=== PATIENT | female | born 1980 | race American Indian/Alaskan Native ===

== ENCOUNTER 2019-06-27 12:11 | Observation (INO) | payer MEDICAID ==
--- NOTE | 2019-06-27 13:27 | Event Note ---
ED Screening Note Date of service: 06/27/19 Time: 13:24 ED Screening Note: 38 y o female presents with vomitting, malaise, chills and this morning facial swelling and chest pain s/p lip fat transplant from abd to buttocks in [place]. completed antibiotic course x 5 days denies coughing, This initial assessment/diagnostic orders/clinical plan/treatment(s) is/are subject to change based on patients health status, clinical progression and re- assessment by fellow clinical providers in the ED. Further treatment and workup at subsequent clinical providers discretion. Patient/guardian urged not to elope from the ED as their condition may be serious if not clinically assessed and managed. Initial orders include: labs
[2019-06-27] MEDS ORDERED: SODIUM CHLORIDE 0.9% 1000 ML 1,000 ML IV ONE (13:28)
[2019-06-27] MEDS ORDERED: ONDANSETRON 4 MG/2 ML INJ IV ONE (13:28)
[2019-06-27 14:34] LABS: Basophils % (Auto) 0.6 % (0.0-1.8); Eosinophils # (Auto) 0.3 K/mm3 (0.0-0.4); Eosinophils % (Auto) 3.7 % (0.0-4.3); Hemoglobin 6.2 gm/dl (10.1-14.3); Lymphocytes # (Auto) 2.6 K/mm3 (1.2-5.4); Lymphocytes % (Auto) 29.4 % (13.4-35.0); Mean Corpuscular HGB Conc 33 % (30-34); Mean Corpuscular Volume 90 fl (79-97); Monocytes # (Auto) 0.7 K/mm3 (0.0-0.8); Monocytes % (Auto) 8.3 % (0.0-7.3); Platelet Count 528 K/mm3 (140-440); Red Blood Count 2.12 M/mm3 (3.65-5.03); Red Cell Distribution Width 16.4 % (13.2-15.2)
[2019-06-27 14:48] LABS: Alanine Aminotransferase 16 units/L (7-56); Albumin 2.8 g/dL (3.9-5); BUN/Creatinine Ratio 15; Blood Urea Nitrogen 6 mg/dL (7-17); Calcium 8.3 mg/dL (8.4-10.2); Hemolysis Index 8
[2019-06-27 14:49] LABS: Bacteria,Urine 1+ /HPF (Negative); Bilirubin,Urine NEG (Negative); Blood,Urine NEG (Negative); Mucus,Urine 3+ /HPF
[2019-06-27 14:50] LABS: Color,Urine Yellow (Yellow)
[2019-06-27] MEDS ORDERED: SODIUM CHLORIDE 0.9% 500 ML 500 ML IV ONE ×2 (15:28→15:49)
--- NOTE | 2019-06-27 15:29 | Emergency Department Report ---
ED Chest Pain HPI - General Chief Complaint: Chest Pain Stated Complaint: NAUSEA, R ARM PAIN, CHEST TIGHTNESS Time Seen by Provider: 06/27/19 15:17 Source: patient Mode of arrival: Ambulatory Limitations: No Limitations - History of Present Illness Initial Comments: Patient is a 38-year-old female that presents emergency room with complaints of left-sided chest tightness and shortness of breath and nausea vomiting 2 days. Patient states that her symptoms are worsening. Patient states she's also having right hand numbness. Patient states any time she eats she is vomiting. Patient states her chest pain is a 8 out of 10. Patient states it's better with rest and worse with palpation and movement. Patient states he recently had a plastic surgery done. Patient states she had liposuction with fat transfer to her blood tox. Patient states her surgery was 9 days ago. She states she had a surgery in [facility]. Patient states that her blood count was normal preoperatively. MD Complaint: chest pain -: Sudden Onset: during rest Pain Location: left chest Pain Radiation: none Severity: severe Severity scale (0 -10): 8 Quality: sharp Consistency: constant Improves With: rest Worsens With: palpation, movement re: nausea, vomting, dyspnea. denies: diaphoresis, sense of impending doom Other Symptoms: denies: cough, fever, syncope, rash, acid taste in mouth, leg swelling, palpitations, burping Treatments Prior to Arrival: none Aspirin use within the Past 7 Days: (0) No - Related Data On Oral Contraceptives: No Previous Rx's Medication Instructions Recorded Last Taken Type Acetaminophen/Codeine 1 tab PO Q6H PRN #15 tab 08/17/14 Unknown Rx [Acetaminophen-Codeine #3 TAB] RX: Diclofenac Dr [Voltaren Dr] 75 mg PO TID #21 tablet 08/17/14 Unknown Rx methOCARBAMOL [Robaxin] 500 mg PO Q6H PRN #20 tablet 08/17/14 Unknown Rx Cyclobenzaprine [Flexeril] 10 mg PO TID PRN #20 tablet 05/05/16 Unknown Rx HYDROcodone/APAP 5-325 [[place] 1 each PO Q6HR PRN #30 tablet 05/05/16 Unknown Rx 5/325] Promethazine [Phenergan TAB] 25 mg PO Q6HR PRN #20 tab 05/05/16 Unknown Rx Allergies Allergy/AdvReac Type Severity Reaction Status Date / Time codeine Allergy Itching Verified 06/27/19 12:13 Penicillins Allergy Itching Verified 06/27/19 12:13 Heart Score - HEART Score History: Slightly suspicious EKG: Normal Age: < 45 Risk factors: No known risk factors Troponin: < normal limit HEART Score: 0 ED Review of Systems ROS: Stated complaint: NAUSEA, R ARM PAIN, CHEST TIGHTNESS Other details as noted in HPI Constitutional: denies: chills, fever Eyes: denies: eye pain, eye discharge, vision change ENT: denies: ear pain, throat pain Respiratory: shortness of breath, SOB with exertion, SOB at rest. denies: co ugh, wheezing Cardiovascular: chest pain, dyspnea on exertion. denies: palpitations Endocrine: no symptoms reported Gastrointestinal: denies: abdominal pain, nausea, diarrhea Genitourinary: denies: urgency, dysuria, discharge Musculoskeletal: denies: back pain, joint swelling, arthralgia Skin: denies: rash, lesions Neurological: numbness. denies: headache, weakness Psychiatric: denies: anxiety, depression Hematological/Lymphatic: denies: easy bleeding, easy bruising ED Past Medical Hx - Past Medical History Previous Medical History?: Yes Hx GERD: Yes - Surgical History Past Surgical History?: Yes Additional Surgical History: C- section x 4; foot surgery 2000. GASTRIC SLEEVE. LIPO AND FAT TRANSFER - Family History Family history: no significant - Social History Smoking Status: Never Smoker Substance Use Type: None - Medications Home Medications: Home Medications Medication Instructions Recorded Confirmed Last Taken Type Acetaminophen/Codeine 1 tab PO Q6H PRN #15 tab 08/17/14 Unknown Rx [Acetaminophen-Codeine #3 TAB] RX: Diclofenac Dr [Voltaren Dr] 75 mg PO TID #21 tablet 08/17/14 Unknown Rx methOCARBAMOL [Robaxin] 500 mg PO Q6H PRN #20 tablet 08/17/14 Unknown Rx Cyclobenzaprine [Flexeril] 10 mg PO TID PRN #20 tablet 05/05/16 Unknown Rx HYDROcodone/APAP 5-325 [[place] 1 each PO Q6HR PRN #30 tablet 05/05/16 Unknown Rx 5/325] Promethazine [Phenergan TAB] 25 mg PO Q6HR PRN #20 tab 05/05/16 Unknown Rx ED Physical Exam - General Limitations: No Limitations General appearance: alert, in no apparent distress - Head Head exam: Present: atraumatic, normocephalic - Eye Eye exam: Present: normal appearance - ENT ENT exam: Present: mucous membranes moist - Neck Neck exam: Present: normal inspection - Respiratory Respiratory exam: Present: normal lung sounds bilaterally, chest wall tenderness. Absent: respiratory distress, wheezes, rales - Cardiovascular Cardiovascular Exam: Present: regular rate, normal rhythm. Absent: systolic murmur, diastolic murmur, rubs, gallop - GI/Abdominal GI/Abdominal exam: Present: soft, normal bowel sounds - Extremities Exam Extremities exam: Present: normal inspection - Back Exam Back exam: Present: normal inspection - Neurological Exam Neurological exam: Present: alert, oriented X3 - Psychiatric Psychiatric exam: Present: normal affect, normal mood - Skin Skin exam: Present: warm, dry, intact, normal color. Absent: rash ED Course Vital Signs 06/27/19 13:24 Temperature 98.1 F Pulse Rate 94 H Respiratory 16 Rate Blood Pressure 117/57 O2 Sat by Pulse 100 Oximetry - Reevaluation(s) Reevaluation #1: I discussed all results with patient. Discussed plan of care outpatient. Patient agrees plan of care and admission. Patient will be admitted to the hospital service. 06/27/19 15:56 - Consultations Consultation #1: Hospitalist consultation. Hospitalist to admit patient. Hospitalist to place orders. 06/27/19 15:56 FERNANDO score - Fernando Score Age > 65: (0) No Aspirin use within the Past 7 Days: (0) No 3 or more CAD Risk Factors: (0) No 2 or more Angina events in past 24 hrs: (1) Yes Known CAD with more than 50% Stenosis: (0) No Elevated Cardiac Markers: (0) No ST Deviation Greater than 0.5mm: (0) No FERNANDO Score: 1 ED Medical Decision Making - Lab Data Result diagrams: 06/27/19 14:06 06/27/19 14:06 - EKG Data -: EKG Interpreted by Me EKG shows normal: sinus rhythm, axis, intervals, QRS complexes, ST-T waves Rate: normal - Radiology Data Radiology results: report reviewed CHEST 1 VIEW 06/27/2019 5:05 PM INDICATION / CLINICAL INFORMATION: Chest pain. COMPARISON: None available. FINDINGS: SUPPORT DEVICES: None. HEART / MEDIASTINUM: No significant abnormality. LUNGS / PLEURA: No significant pulmonary or pleural abnormality. No pneumothorax. ADDITIONAL FINDINGS: No significant additional findings. IMPRESSION: 1. No acute findings. - Medical Decision Making Patient is a 38-year-old female that presents emergency room with complaints of chest pain, shortness of breath, right hand numbness. Patient found to be severely anemic. Patient is status post cosmetic surgery. Patient's chest x- ray negative. Patient's EKG negative. Patient's labs unremarkable except for severe anemia. Patient typed and crossed for 1 unit. Patient admitted to the hospitalist service. - Differential Diagnosis anemia. Recent surgery. Chest pain. Shortness of breath. Critical Care Time: Yes Critical care time in (mins) excluding proc time.: 35 Critical care attestation.: If time is entered above; I have spent that time in minutes in the direct care of this critically ill patient, excluding procedure time. Critical Care Time: 35 minutes ED Disposition Clinical Impression: SOB (shortness of breath) Anemia Qualifiers: Anemia type: unspecified type Qualified Code(s): D64.9 - Anemia, unspecified Chest pain Qualifiers: Chest pain type: unspecified Qualified Code(s): R07.9 - Chest pain, unspecified Disposition: DC-09 OP ADMIT IP TO THIS HOSP Is pt being admited?: Yes Does the pt Need Aspirin: No Condition: Critical Time of Disposition: 16:27
--- NOTE | 2019-06-27 15:49 | History and Physical Report ---
History of Present Illness Chief complaint: IM hurting, and i feel weak History of present illness: 38 YO Female with Obesity, GERD presents to ED for evaluation. Pt states that she has experienced weakness, shortness of breath, and chest discomfort over the past 2 days with worsening symptoms over the same time frame. Pt also reports nausea, and multiple episodes of vomiting over the past 2 2ays with inability to tolerate oral intake. Pt is 9 days S/P Liposuction from her flank, abdomen, and back with fat transposition to her buttocks. Pt transported to [facility] via private vehicle. Pt seen and evaluated in ED and found to have Symptomatic Anemia. Pt placed in Observation status, and admitted to medical floor. Pt denies fever, chills, CP, palpitations, NVD, Trauma, BRBPR, Productive cough, skin rash, prolonged travel, Individual/Family history of DVT/PE/Bleeding/Blood Clotting Disorders. No prior admission for review. All listed medication reconciled at time of admission. Past History Past Medical History: other (See HPI) Past Surgical History: , Other (Foot surgery, GAstric Sleeve, Liposuction.) Social history: single. denies: smoking, alcohol abuse, prescription drug abuse Family history: hypertension Medications and Allergies Allergies Allergy/AdvReac Type Severity Reaction Status Date / Time codeine Allergy Itching Verified 06/27/19 12:13 Penicillins Allergy Itching Verified 06/27/19 12:13 Home Medications Medication Instructions Recorded Confirmed Last Taken Type Acetaminophen/Codeine 1 tab PO Q6H PRN #15 tab 08/17/14 Unknown Rx [Acetaminophen-Codeine #3 TAB] Diclofenac Dr [Agustina Mims] 75 mg PO TID #21 tablet 08/17/14 Unknown Rx methOCARBAMOL [Robaxin] 500 mg PO Q6H PRN #20 tablet 08/17/14 Unknown Rx Cyclobenzaprine [Flexeril] 10 mg PO TID PRN #20 tablet 05/05/16 Unknown Rx HYDROcodone/APAP 5-325 [[place] 1 each PO Q6HR PRN #30 tablet 05/05/16 Unknown Rx 5/325] Promethazine [Phenergan TAB] 25 mg PO Q6HR PRN #20 tab 05/05/16 Unknown Rx Review of Systems Constitutional: no weight loss, no fever, no chills Ears, nose, mouth and throat: no ear pain, no tinnitis, no decreased hearing, no nose pain, no nasal discharge, no sinus pressure Breasts: no change in shape, no swelling, no mass Cardiovascular: no chest pain, no orthopnea, no palpitations, no rapid/irregular heart beat, no edema, no syncope Respiratory: no cough, no excessive sputum, no hemoptysis, no shortness of breath Gastrointestinal: no nausea, no vomiting, no diarrhea, no hematemesis Genitourinary Female: no pelvic pain, no menorrhagia, no urinary frequency, no urgency, no stress incontinence, no post void dribbling, no urge incontinence Menstruation: no premenarcheal, no post hysterectomy, no ammenorrhea, no ammenorrhea on BC, no period heavy, no period spotting Rectal: no pain, no incontinence, no bleeding Musculoskeletal: no neck stiffness, no neck pain, no arm numbness/tingling, no low back pain, no shooting leg pain Integumentary: no rash, no pruritis, no redness, no wounds, no blisters Neurological: no transient paralysis, no weakness, no parathesias, no numbness, no seizures, no syncope Psychiatric: no memory loss, no change in sleep habits, no sleep disturbances, no change in appetite, no change in libido Endocrine: no nocturia, no excessive sweating Hematologic/Lymphatic: no easy bruising, no easy bleeding, no lymphadenopathy Allergic/Immunologic: no allergic rhinitis, no wheezing, no persistent infections, no angioedema Exam - Constitutional Vitals: Temp Pulse Resp BP Pulse Ox 98.1 F 94 H 16 117/57 100 06/27/19 13:24 06/27/19 13:24 06/27/19 13:24 06/27/19 13:24 06/27/19 13:24 General appearance: Present: obese - EENT Eyes: Present: PERRL ENT: hearing intact, clear oral mucosa - Neck Neck: Present: supple, normal ROM - Respiratory Respiratory effort: normal Respiratory: bilateral: CTA - Cardiovascular Heart Sounds: Present: S1 & S2. Absent: rub, click - Extremities Extremities: pulses symmetrical, No edema Peripheral Pulses: within normal limits - Abdominal General gastrointestinal: Present: soft, non-tender, non-distended, normal bowel sounds Female genitourinary: Present: normal - Integumentary Integumentary: Present: clear, warm, dry - Musculoskeletal Musculoskeletal: gait normal, strength equal bilaterally - Psychiatric Psychiatric: appropriate mood/affect, intact judgment & insight - Neurologic Neurologic: CNII-XII intact, moves all extremities Results - Labs CBC & Chem 7: 06/27/19 14:06 06/27/19 14:06 Labs: Abnormal lab results 06/27/19 06/27/19 Range/Units 14:06 14:06 RBC 2.12 L (3.65-5.03) M/mm3 Hgb 6.2 L (10.1-14.3) gm/dl Hct 19.0 L* (30.3-42.9) % RDW 16.4 H (13.2-15.2) % Plt Count 528 H (140-440) K/mm3 [place] % (Auto) 8.3 H (0.0-7.3) % BUN 6 L (7-17) mg/dL Creatinine 0.4 L (0.7-1.2) mg/dL Calcium 8.3 L (8.4-10.2) mg/dL Total Protein 6.0 L (6.3-8.2) g/dL Albumin 2.8 L (3.9-5) g/dL Assessment and Plan - Patient Problems (1) Anemia Current Visit: Yes Status: Acute Plan to address problem: PRBC transfusion, repeat cbc, Benadryl, Tylenol prn, outpatient f/u with PCP (2) Dyspnea Current Visit: Yes Status: Acute Qualifiers: Dyspnea type: unspecified Qualified Code(s): R06.00 - Dyspnea, unspecified Plan to address problem: CTA chest, incentive spirometry, supportive care. (3) Obesity (BMI 35.0-39.9 without comorbidity) Current Visit: Yes Status: Acute Plan to address problem: Balanced diet, increased physical activity at discharge. (4) GERD (gastroesophageal reflux disease) Current Visit: Yes Status: Acute Qualifiers: Esophagitis presence: without esophagitis Qualified Code(s): K21.9 - Ga stro-esophageal reflux disease without esophagitis Plan to address problem: PPI therapy, supportive care. (5) DVT prophylaxis Current Visit: Yes Status: Acute Plan to address problem: SCD to BLE while in bed, Pt is ambulatory
[2019-06-27] MEDS ORDERED: ONDANSETRON 4 MG/2 ML INJ IV PRN (15:50)
[2019-06-27] MEDS ORDERED: ACETAMINOPHEN 325 MG TAB PO PRN (15:50)
[2019-06-27] MEDS ORDERED: ALBUTEROL 2.5 MG/3 ML NEBU IH PRN (15:50)
[2019-06-27] MEDS ORDERED: diphenhydrAMINE 50 MG/ML VIAL IV ONE ×2 (16:09→18:54)
[2019-06-27] MEDS ORDERED: HYDROmorphone 1 MG/1 ML INJ IV ONE (16:15)
--- NOTE | 2019-06-27 17:21 | Cat Scan Report ---
CTA of the chest with 3D Reconstruction Indication: ,Chest pain Technique: TECHNIQUE: Axial CT images were obtained through the chest after injection of 100 cc of Omnipaque 350 IV contrast. 3 plane MIP reconstructions were produced. All CT scans at this location are performed using CT dose reduction for ALARA by means of automated exposure control. COMPARISON: None Automatic exposure control was utilized in an attempt to reduce radiation dose. Findings: Pulmonary arteries: The main pulmonary artery and right and left pulmonary artery branches fill satis factorily with contrast. No pulmonary embolus is seen. Lungs: There are several very tiny nodules noted in the right lung measuring 2 to 3 mm in diameter. N o focal infiltrate is seen. There is no pneumothorax. Mediastinum: Heart size is normal. No adenopathy is seen. Aorta: Normal in diameter. No dissection seen within limits of this exam. There is significant edema in the body wall the abdomen. 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 Impression: No pulmonary embolus is seen. There is severe edema in the wall of the abdomen. There is a small amount of subcutaneous air in the right lateral abdominal wall of uncertain etiology. There are a few 2 to 3 mm pulmonary nodules on the right. INCIDENTAL PULMONARY NODULE RECOMMENDATION Recommendation: Solid Nodule size <6 mm -- Single or Multiple - Low Risk Patient: No routine follow-up - High Risk Patient: Optional CT at 12 months Note These recommendations do not apply to lung cancer screening, patients with immunosuppression, o r patients with known primary cancer. Note Newly detected indeterminate nodule in persons 35 years of age or older. Persons under the age of 35 should not receive follow-up unless there is a known primary cancer. Low Risk Patient -- minimal or absent history of smoking and of other known risk factors. High Risk Patient -- history of smoking or of other known risk factors. Nodule dimensions are average of long and short axes, rounded to the nearest millimeter. Based on 2017 Fleischner Society Guidelines found in Radiology 2017 284:228-243. [email or web address] Signer Name: Jaime Chirinos MD Signed: 06/27/2019 5:17 PM Workstation Name: [id number]
--- NOTE | 2019-06-27 17:34 | XRay Report ---
CHEST 1 VIEW 06/27/2019 5:05 PM INDICATION / CLINICAL INFORMATION: Chest pain. COMPARISON: None available. FINDINGS: SUPPORT DEVICES: None. HEART / MEDIASTINUM: No significant abnormality. LUNGS / PLEURA: No significant pulmonary or pleural abnormality. No pneumothorax. ADDITIONAL FINDINGS: No significant additional findings. IMPRESSION: 1. No acute findings. Signer Name: Roberto Dow MD Signed: 06/27/2019 5:29 PM Workstation Name: [id number]
[2019-06-27] MEDS ORDERED: diphenhydrAMINE 50 MG/ML VIAL ONE (18:58)
[2019-06-27] MEDS ORDERED: oxyCODONE /ACETAMINOPHEN 5-325MG TAB PO ONE (20:03)
[2019-06-27] MEDS ORDERED: PROMETHAZINE 25 MG TAB PO STA (20:04)
[2019-06-27] MEDS ORDERED: oxyCODONE /ACETAMINOPHEN 5-325MG TAB ONE (20:49)
[2019-06-27] MEDS ORDERED: PROMETHAZINE 25 MG TAB ONE (20:54)
[2019-06-27] MEDS: FAMOTIDINE 20 MG TAB PO SCH (22:37)
[2019-06-27] MEDS: PROMETHAZINE 25 MG TAB PO PRN (23:48)
[2019-06-27] MEDS: MORPHINE 2 MG/1 ML INJ IV PRN (23:48)
[2019-06-28] MEDS: SODIUM CHLORIDE 0.9% 1000 ML 1,000 ML IV SCH ×2 (00:30→21:27)
[2019-06-28] MEDS: METOCLOPRAMIDE 10 MG/2 ML INJ IV PRN ×3 (01:45→21:27)
[2019-06-28] MEDS: MORPHINE 2 MG/1 ML INJ IV PRN (06:06)
[2019-06-28] MEDS: PROMETHAZINE 25 MG TAB PO PRN ×2 (06:14→13:50)
[2019-06-28] MEDS: FAMOTIDINE 20 MG TAB PO SCH ×2 (09:25→21:23)
[2019-06-28 09:27] LABS: Basophils # (Auto) 0.1 K/mm3 (0.0-0.1); Basophils % (Auto) 0.7 % (0.0-1.8); Eosinophils # (Auto) 0.5 K/mm3 (0.0-0.4); Eosinophils % (Auto) 6.1 % (0.0-4.3); Hematocrit 23.8 % (30.3-42.9); Lymphocytes # (Auto) 2.7 K/mm3 (1.2-5.4); Lymphocytes % (Auto) 33.3 % (13.4-35.0); Mean Corpuscular HGB Conc 33 % (30-34); Mean Corpuscular Volume 88 fl (79-97); Monocytes # (Auto) 0.8 K/mm3 (0.0-0.8); Monocytes % (Auto) 9.7 % (0.0-7.3); Platelet Count 454 K/mm3 (140-440); Red Blood Count 2.69 M/mm3 (3.65-5.03); Red Cell Distribution Width 15.7 % (13.2-15.2)
[2019-06-28] MEDS: HYDROmorphone 1 MG/1 ML INJ IV PRN ×3 (10:01→18:54)
--- NOTE | 2019-06-28 11:35 | History and Physical Report ---
History of Present Illness Date of examination: 06/28/19 Date of admission: 06/27/19 15:50 Chief complaint: Vomiting and chills History of present illness: 38 y/o female c/o vomiting, malaise, chills and facial swelling since last PM. Pt also reports headache and nausea, c/ several episodes of emesis this morning. She sts, unable to tolerate oral pain med. Pain pain in relieved by iv dilaudid or hydrocdone 10 that she currentl;y takes. Pt is 9 days post op fat transplant from abd, flank and back to buttocks. She reports completing antibiotic course x 5 days. Past History Past Surgical History: , Other (Foot surgery, GAstric Sleeve, Liposuction.) Social history: single. denies: smoking, alcohol abuse, prescription drug abuse Family history: hypertension Medications and Allergies Allergies Allergy/AdvReac Type Severity Reaction Status Date / Time codeine Allergy Itching Verified 06/27/19 12:13 Penicillins Allergy Itching Verified 06/27/19 12:13 Home Medications Medication Instructions Recorded Confirmed Last Taken Type Acetaminophen/Codeine 1 tab PO Q6H PRN #15 tab 08/17/14 Unknown Rx [Acetaminophen-Codeine #3 TAB] Diclofenac Dr [Voltaren Dr] 75 mg PO TID #21 tablet 08/17/14 Unknown Rx methOCARBAMOL [Robaxin] 500 mg PO Q6H PRN #20 tablet 08/17/14 Unknown Rx Cyclobenzaprine [Flexeril] 10 mg PO TID PRN #20 tablet 05/05/16 Unknown Rx HYDROcodone/APAP 5-325 [[place] 1 each PO Q6HR PRN #30 tablet 05/05/16 Unknown Rx 5/325] Promethazine [Phenergan TAB] 25 mg PO Q6HR PRN #20 tab 05/05/16 Unknown Rx Active Meds: Active Medications Acetaminophen (Tylenol) 650 mg PO Q4H PRN PRN Reason: Pain MILD(1-3)/Fever >100.5/NATARAJAN Albuterol (Proventil) 2.5 mg IH Q4HRT PRN PRN Reason: Shortness Of Breath Famotidine (Pepcid) 20 mg PO BID MARQUITA Last Admin: 06/28/19 09:25 Dose: 20 mg Documented by: Hydromorphone HCl (Dilaudid) 1 mg IV Q4H PRN PRN Reason: Pain , Severe (7-10) Last Admin: 06/28/19 10:01 Dose: 1 mg Documented by: Sodium Chloride (Nacl 0.9% 1000 Ml) 1,000 mls @ 42 mls/hr IV DIRECT [facility] Last Admin: 06/28/19 00:30 Dose: 42 mls/hr Documented by: Metoclopramide HCl (Reglan) 10 mg IV Q6H PRN PRN Reason: Nausea And Vomiting Last Admin: 06/28/19 08:10 Dose: 10 mg Documented by: Ondansetron HCl (Zofran) 4 mg IV Q8H PRN PRN Reason: Nausea And Vomiting Last Admin: 06/27/19 22:37 Dose: 4 mg Documented by: Pneumococcal Polyvalent Vaccine (Pneumovax 23) 0.5 ml IM .ONCE ONE Stop: 06/28/19 12:01 Promethazine HCl (Phenergan) 25 mg PO Q6H PRN PRN Reason: Nausea And Vomiting Last Admin: 06/28/19 06:14 Dose: 25 mg Documented by: Sodium Chloride (Sodium Chloride Flush Syringe 10 Ml) 10 ml IV BID [facility] Last Admin: 06/28/19 09:25 Dose: 10 ml Documented by: Sodium Chloride (Sodium Chloride Flush Syringe 10 Ml) 10 ml IV PRN PRN PRN Reason: LINE FLUSH Review of Systems Ears, nose, mouth and throat: headache, no nasal discharge, no sinus pressure, no bleeding gums, no dental pain, no mouth pain Breasts: no skin changes, no Cardiovascular: chest pain, high blood pressure, no palpitations, no edema Respiratory: shortness of breath, no cough Gastrointestinal: nausea, vomiting, no diarrhea, no constipation, no excessive gas, no jaundice, no lactose intolerance Genitourinary Female: mood problems, no pelvic pain, no post void dribbling, no incomplete emptying, no difficulty voiding Menstruation: no currently menstrual, no ammenorrhea Rectal: no pain, no incontinence Musculoskeletal: arm numbness/tingling, no morning stiffness, no muscle cramps, no frequent falls, no fractures, no prior amputations Integumentary: no rash, no sores, no jaundice Neurological: weakness, numbness (hands), no head injury, no paralysis, no s eizures, no syncope, no convulsions, no change in speech, no change in mentation, no confusion Psychiatric: no change in libido, no suicidal ideation, no hallucinations, no pa ranoia, no difficulties concentrating Endocrine: no cold intolerance, no heat intolerance, no deepening of the voice, no thyroid mass, no low blood sugars Hematologic/Lymphatic: no easy bruising, no thrombophilia Allergic/Immunologic: no persistent infections, no gluten intolerance, no seasonal allergies Exam - Constitutional Vitals: Temp Pulse Resp BP Pulse Ox 98.2 F 100 H 17 109/65 98 06/28/19 07:17 06/28/19 07:17 06/28/19 07:17 06/28/19 07:17 06/28/19 07:17 General appearance: Present: mild distress - EENT Eyes: Present: PERRL ENT: hearing intact - Neck Neck: Present: normal ROM - Respiratory Respiratory effort: normal Respiratory: bilateral: CTA - Cardiovascular Rhythm: regular Heart Sounds: Present: S1 & S2 - Extremities Extremities: pulses intact, normal color - Abdominal General gastrointestinal: Present: tender Localized gastrointestinal: tender: diffuse - Integumentary Integumentary: Present: warm, dry - Musculoskeletal Musculoskeletal: strength equal bilaterally - Psychiatric Psychiatric: appropriate mood/affect, intact judgment & insight, memory intact - Neurologic Neurologic: CNII-XII intact Results - Labs CBC & Chem 7: 06/28/19 08:38 06/27/19 14:06 Labs: Laboratory Last Values WBC 8.0 K/mm3 (4.5-11.0) 06/28/19 08:38 RBC 2.69 M/mm3 (3.65-5.03) L 06/28/19 08:38 Hgb 8.0 gm/dl (10.1-14.3) L 06/28/19 08:38 Hct 23.8 % (30.3-42.9) L 06/28/19 08:38 MCV 88 fl (79-97) 06/28/19 08:38 MCH 30 pg (28-32) 06/28/19 08:38 MCHC 33 % (30-34) 06/28/19 08:38 RDW 15.7 % (13.2-15.2) H 06/28/19 08:38 Plt Count 454 K/mm3 (140-440) H 06/28/19 08:38 Lymph % (Auto) 33.3 % (13.4-35.0) 06/28/19 08:38 [place] % (Auto) 9.7 % (0.0-7.3) H 06/28/19 08:38 Eos % (Auto) 6.1 % (0.0-4.3) H 06/28/19 08:38 Baso % (Auto) 0.7 % (0.0-1.8) 06/28/19 08:38 Lymph # 2.7 K/mm3 (1.2-5.4) 06/28/19 08:38 [place] # 0.8 K/mm3 (0.0-0.8) 06/28/19 08:38 Eos # 0.5 K/mm3 (0.0-0.4) H 06/28/19 08:38 Baso # 0.1 K/mm3 (0.0-0.1) 06/28/19 08:38 Seg Neutrophils % 50.2 % (40.0-70.0) 06/28/19 08:38 Seg Neutrophils # 4.0 K/mm3 (1.8-7.7) 06/28/19 08:38 Sodium 139 mmol/L (137-145) 06/27/19 14:06 Potassium 4.3 mmol/L (3.6-5.0) 06/27/19 14:06 Chloride 102.5 mmol/L (98-107) 06/27/19 14:06 Carbon Dioxide 24 mmol/L (22-30) 06/27/19 14:06 Anion Gap 17 mmol/L 06/27/19 14:06 BUN 6 mg/dL (7-17) L 06/27/19 14:06 Creatinine 0.4 mg/dL (0.7-1.2) L 06/27/19 14:06 Estimated GFR > 60 ml/min 06/27/19 14:06 BUN/Creatinine Ratio 15 % 06/27/19 14:06 Glucose 84 mg/dL (65-100) 06/27/19 14:06 Calcium 8.3 mg/dL (8.4-10.2) L 06/27/19 14:06 Total Bilirubin 0.50 mg/dL (0.1-1.2) 06/27/19 14:06 AST 17 units/L (5-40) 06/27/19 14:06 ALT 16 units/L (7-56) 06/27/19 14:06 Alkaline Phosphatase 87 units/L (35-129) 06/27/19 14:06 Total Protein 6.0 g/dL (6.3-8.2) L 06/27/19 14:06 Albumin 2.8 g/dL (3.9-5) L 06/27/19 14:06 Albumin/Globulin Ratio 0.9 % 06/27/19 14:06 HCG, Qual Negative (Negative) 06/27/19 15:39 Urine Color Yellow (Yellow) 06/27/19 14:09 Urine Turbidity Slightly-cloudy (Clear) 06/27/19 14:09 Urine pH 5.0 (5.0-7.0) 06/27/19 14:09 Ur Specific [place] 1.028 (1.003-1.030) 06/27/19 14:09 Urine Protein 30 mg/dl mg/dL (Negative) 06/27/19 14:09 Urine Glucose (UA) Neg mg/dL (Negative) 06/27/19 14:09 Urine Ketones Tr mg/dL (Negative) 06/27/19 14:09 Urine Blood Neg (Negative) 06/27/19 14:09 Urine Nitrite Neg (Negative) 06/27/19 14:09 Urine Bilirubin Neg (Negative) 06/27/19 14:09 Urine Urobilinogen 2.0 mg/dL (<2.0) 06/27/19 14:09 Ur Leukocyte Esterase Neg (Negative) 06/27/19 14:09 Urine WBC (Auto) 3.0 /HPF (0.0-6.0) 06/27/19 14:09 Urine RBC (Auto) 3.0 /HPF (0.0-6.0) 06/27/19 14:09 U Epithel Cells (Auto) 5.0 /HPF (0-13.0) 06/27/19 14:09 Urine Bacteria (Auto) 1+ /HPF (Negative) 06/27/19 14:09 Urine Mucus 3+ /HPF 06/27/19 14:09 Blood Type B POSITIVE 06/27/19 15:41 Antibody Screen Negative 06/27/19 15:41 Crossmatch See Detail 06/27/19 15:41 Assessment and Plan Assessment and plan: Pt is a 38 y/o Female with Obesity, GERD with c/o weakness, shortness of breath, n/v and chest discomfort over the past 2 days. . Pt is 9 days S/P Liposuction and fat transfer. Chest Xray IMPRESSION: 1. No acute findings. CT Chest Impression: No pulmonary embolus is seen. There is severe edema in the wall of the abdomen. There is a small amount of subcutaneous air in the right lateral abdominal wall of uncertain etiology. There are a few 2 to 3 mm pulmonary nodules on the right. INCIDENTAL PULMONARY NODULE RECOMMENDATION Anemia s/p surgery 9 days ago -repeat cbc post transfusion, monitor labs DVT prophylaxis -SCD, Intractable Nausea/ Vomiting - Obesity -Lifestyle modification c/ diet changes.
[2019-06-28] MEDS ORDERED: FLU VACC QUAD 2019-20 (3 YR UP)/PF 60 MCG/0.5 ML SYRINGE IM ONE (12:00)
[2019-06-28] MEDS ORDERED: PNEUMOCOCCAL 23 Valent 0.5 ML VIAL IM ONE (12:00)
--- NOTE | 2019-06-28 13:32 | Progress Note ---
<LENKA CLAUDIO R - Last Filed: 06/28/19 14:43> Assessment and Plan I saw and evaluated the patient. I agree with the findings and the plan of care as documented in the Nurse Practitioner's~note, with the following corrections and additions. Dispositon: continue inpatient care, she is actively vomiting, once tolerating a diet then d/c. Order CT abd/pelvis, she had cosmetic liposuction and fat transfer from stomach to buttock in [place] approx 1 week ago. Her symptoms most likely surgical complication. Objective - Constitutional Vitals: Vital Signs - 12hr 06/28/19 06/28/19 06/28/19 02:55 03:25 04:25 Temperature 98.2 F 98.3 F 98.4 F Pulse Rate 111 H 105 H 103 H Respiratory 16 17 17 Rate Blood Pressure 108/61 106/64 119/70 O2 Sat by Pulse 8 L 98 Oximetry 06/28/19 06/28/19 06/28/19 05:37 05:52 06:06 Temperature 97.5 F L 97.6 F Pulse Rate 101 H 107 H Respiratory 16 17 17 Rate Blood Pressure 112/70 116/70 O2 Sat by Pulse 98 100 Oximetry 06/28/19 06/28/19 06/28/19 06:17 06:36 06:52 Temperature 97.8 F 98 F Pulse Rate 102 H 105 H Respiratory 17 17 16 Rate Blood Pressure 115/70 110/68 O2 Sat by Pulse 97 98 Oximetry 06/28/19 06/28/19 07:17 11:51 Temperature 98.2 F 98.2 F Pulse Rate 100 H 102 H Respiratory 17 19 Rate Blood Pressure 109/65 113/72 O2 Sat by Pulse 98 100 Oximetry - Labs CBC & Chem 7: 06/28/19 08:38 06/27/19 14:06 Labs: Abnormal lab results 06/27/19 06/27/19 06/27/19 Range/Units 14:06 14:06 15:41 RBC 2.12 L (3.65-5.03) M/mm3 Hgb 6.2 L (10.1-14.3) gm/dl Hct 19.0 L* (30.3-42.9) % RDW 16.4 H (13.2-15.2) % Plt Count 528 H (140-440) K/mm3 [place] % (Auto) 8.3 H (0.0-7.3) % Eos % (Auto) (0.0-4.3) % Eos # (0.0-0.4) K/mm3 BUN 6 L (7-17) mg/dL Creatinine 0.4 L (0.7-1.2) mg/dL Calcium 8.3 L (8.4-10.2) mg/dL Total Protein 6.0 L (6.3-8.2) g/dL Albumin 2.8 L (3.9-5) g/dL Crossmatch See Detail 06/28/19 Range/Units 08:38 RBC 2.69 L (3.65-5.03) M/mm3 Hgb 8.0 L (10.1-14.3) gm/dl Hct 23.8 L (30.3-42.9) % RDW 15.7 H (13.2-15.2) % Plt Count 454 H (140-440) K/mm3 [place] % (Auto) 9.7 H (0.0-7.3) % Eos % (Auto) 6.1 H (0.0-4.3) % Eos # 0.5 H (0.0-0.4) K/mm3 BUN (7-17) mg/dL Creatinine (0.7-1.2) mg/dL Calcium (8.4-10.2) mg/dL Total Protein (6.3-8.2) g/dL Albumin (3.9-5) g/dL Crossmatch Medications & Allergies - Medications Allergies/Adverse Reactions: Allergies codeine Allergy (Verified 06/27/19 12:13) Itching Penicillins Allergy (Verified 06/27/19 12:13) Itching Home Medications: Home Medications Medication Instructions Recorded Confirmed Last Taken Type Acetaminophen/Codeine 1 tab PO Q6H PRN #15 tab 08/17/14 Unknown Rx [Acetaminophen-Codeine #3 TAB] Diclofenac Dr [Agustina Mims] 75 mg PO TID #21 tablet 08/17/14 Unknown Rx methOCARBAMOL [Robaxin] 500 mg PO Q6H PRN #20 tablet 08/17/14 Unknown Rx Cyclobenzaprine [Flexeril] 10 mg PO TID PRN #20 tablet 05/05/16 Unknown Rx HYDROcodone/APAP 5-325 [[place] 1 each PO Q6HR PRN #30 tablet 05/05/16 Unknown Rx 5/325] Promethazine [Phenergan TAB] 25 mg PO Q6HR PRN #20 tab 05/05/16 Unknown Rx Active Medications: Generic Name Dose Route Start Last Admin Trade Name Freq PRN Reason Stop Dose Admin Acetaminophen 650 mg 06/27/19 15:50 Tylenol PO Q4H PRN Pain MILD(1-3)/Fever >100.5/NATARAJAN Albuterol 2.5 mg 06/27/19 15:50 Proventil IH Q4HRT PRN Shortness Of Breath Famotidine 20 mg 06/27/19 22:00 06/28/19 09:25 Pepcid PO 20 mg BID [facility]ITA Administration Hydromorphone HCl 1 mg 06/28/19 09:23 06/28/19 13:50 Dilaudid IV 1 mg Q4H PRN Administration Pain , Severe (7-10) Sodium Chloride 1,000 mls @ 42 mls/hr 06/28/19 01:00 06/28/19 00:30 Nacl 0.9% 1000 Ml IV 42 mls/hr DIRECT [facility] Administration Metoclopramide HCl 10 mg 06/27/19 22:32 06/28/19 08:10 Reglan IV 10 mg Q6H PRN Administration Nausea And Vomiting Ondansetron HCl 4 mg 06/27/19 15:50 06/27/19 22:37 Zofran IV 4 mg Q8H PRN Administration Nausea And Vomiting Promethazine HCl 25 mg 06/27/19 22:31 06/28/19 13:50 Phenergan PO 25 mg Q6H PRN Administration Nausea And Vomiting Sodium Chloride 10 ml 06/27/19 22:00 06/28/19 09:25 Sodium Chloride Flush Syringe 10 Ml IV 10 ml BID [facility] Administration Sodium Chloride 10 ml 06/27/19 15:50 Sodium Chloride Flush Syringe 10 Ml IV PRN PRN LINE FLUSH <AMIE MATOS - Last Filed: 06/28/19 14:46> Assessment and Plan Pt is a 38 y/o female with a PMH of Obesity and GERD. She c/o vomiting, malaise, chills and facial swelling since last PM. Pt also reports headache and nausea, c/ several episodes of emesis this morning. She sts, unable to tolerate oral pain med. Pain in relieved by iv dilaudid or hydrocdone 10mg that she currently takes. Pt is 10 days post op fat transplant from abd, flank and back to buttocks. Chest Xray IMPRESSION: 1. No acute findings. CT Chest Impression: No pulmonary embolus is seen. There is severe edema in the wall of the abdomen. There is a small amount of subcutaneous air in the right lateral abdominal wall of uncertain etiology. There are a few 2 to 3 mm pulmonary nodules on the right. A/P Anemia s/p surgery 9 days ago -repeat cbc post transfusion, monitor labs DVT prophylaxis -SCD, Nausea/ Vomiting -continue current meds. Obesity -Lifestyle modification c/ diet changes. Subjective Date of service: 06/28/19 Interval history: Pt was seen and examined. Followup for pt c/o vomiting, headache and nausea since yesterday. Objective - Constitutional Vitals: Vital Signs - 12hr 06/28/19 06/28/19 06/28/19 01:40 01:55 02:25 Temperature 98.2 F 98.3 F 98.2 F Pulse Rate 108 H 112 H 110 H Respiratory 17 16 17 Rate Blood Pressure 117/59 103/56 104/58 O2 Sat by Pulse 98 98 97 Oximetry 06/28/19 06/28/19 06/28/19 02:55 03:25 04:25 Temperature 98.2 F 98.3 F 98.4 F Pulse Rate 111 H 105 H 103 H Respiratory 16 17 17 Rate Blood Pressure 108/61 106/64 119/70 O2 Sat by Pulse 8 L 98 Oximetry 06/28/19 06/28/19 06/28/19 05:37 05:52 06:06 Temperature 97.5 F L 97.6 F Pulse Rate 101 H 107 H Respiratory 16 17 17 Rate Blood Pressure 112/70 116/70 O2 Sat by Pulse 98 100 Oximetry 06/28/19 06/28/19 06/28/19 06:17 06:36 06:52 Temperature 97.8 F 98 F Pulse Rate 102 H 105 H Respiratory 17 17 16 Rate Blood Pressure 115/70 110/68 O2 Sat by Pulse 97 98 Oximetry 06/28/19 06/28/19 07:17 11:51 Temperature 98.2 F 98.2 F Pulse Rate 100 H 102 H Respiratory 17 19 Rate Blood Pressure 109/65 113/72 O2 Sat by Pulse 98 100 Oximetry General appearance: Present: mild distress - EENT Eyes: PERRL, no irregular pupil, no scleral icterus, no conjunctival injection ENT: hearing intact, dentition normal Ears: bilateral: normal - Neck Neck: supple, normal ROM, no enlarged thyroid - Respiratory Respiratory effort: normal Respiratory: bilateral: CTA - Cardiovascular Rhythm: regular Heart Sounds: Present: S1 & S2 Extremities: pulses intact, Full ROM - Gastrointestinal General gastrointestinal: Present: tender, non-distended Localized gastrointestinal: tender: diffuse - Integumentary Integumentary: warm, dry - Musculoskeletal Musculoskeletal: strength equal bilaterally - Neurologic Neurologic: CNII-XII intact, moves all extremities - Psychiatric Psychiatric: appropriate mood/affect, intact judgment & insight, memory intact - Labs CBC & Chem 7: 06/28/19 08:38 06/27/19 14:06 Labs: Abnormal lab results 06/27/19 06/27/19 06/27/19 Range/Units 14:06 14:06 15:41 RBC 2.12 L (3.65-5.03) M/mm3 Hgb 6.2 L (10.1-14.3) gm/dl Hct 19.0 L* (30.3-42.9) % RDW 16.4 H (13.2-15.2) % Plt Count 528 H (140-440) K/mm3 [place] % (Auto) 8.3 H (0.0-7.3) % Eos % (Auto) (0.0-4.3) % Eos # (0.0-0.4) K/mm3 BUN 6 L (7-17) mg/dL Creatinine 0.4 L (0.7-1.2) mg/dL Calcium 8.3 L (8.4-10.2) mg/dL Total Protein 6.0 L (6.3-8.2) g/dL Albumin 2.8 L (3.9-5) g/dL Crossmatch See Detail 06/28/19 Range/Units 08:38 RBC 2.69 L (3.65-5.03) M/mm3 Hgb 8.0 L (10.1-14.3) gm/dl Hct 23.8 L (30.3-42.9) % RDW 15.7 H (13.2-15.2) % Plt Count 454 H (140-440) K/mm3 [place] % (Auto) 9.7 H (0.0-7.3) % Eos % (Auto) 6.1 H (0.0-4.3) % Eos # 0.5 H (0.0-0.4) K/mm3 BUN (7-17) mg/dL Creatinine (0.7-1.2) mg/dL Calcium (8.4-10.2) mg/dL Total Protein (6.3-8.2) g/dL Albumin (3.9-5) g/dL Crossmatch - Imaging and cardiology Chest x-ray: report reviewed CT scan - abdomen: report reviewed Medications & Allergies - Medications Active Medications: Generic Name Dose Route Start Last Admin Trade Name Freq PRN Reason Stop Dose Admin Acetaminophen 650 mg 06/27/19 15:50 Tylenol PO Q4H PRN Pain MILD(1-3)/Fever >100.5/NATARAJAN Albuterol 2.5 mg 06/27/19 15:50 Proventil IH Q4HRT PRN Shortness Of Breath Famotidine 20 mg 06/27/19 22:00 06/28/19 09:25 Pepcid PO 20 mg BID [facility] Administration Hydromorphone HCl 1 mg 06/28/19 09:23 06/28/19 10:01 Dilaudid IV 1 mg Q4H PRN Administration Pain , Severe (7-10) Sodium Chloride 1,000 mls @ 42 mls/hr 06/28/19 01:00 06/28/19 00:30 Nacl 0.9% 1000 Ml IV 42 mls/hr DIRECT [facility] Administration Metoclopramide HCl 10 mg 06/27/19 22:32 06/28/19 08:10 Reglan IV 10 mg Q6H PRN Administration Nausea And Vomiting Ondansetron HCl 4 mg 06/27/19 15:50 06/27/19 22:37 Zofran IV 4 mg Q8H PRN Administration Nausea And Vomiting Promethazine HCl 25 mg 06/27/19 22:31 06/28/19 06:14 Phenergan PO 25 mg Q6H PRN Administration Nausea And Vomiting Sodium Chloride 10 ml 06/27/19 22:00 06/28/19 09:25 Sodium Chloride Flush Syringe 10 Ml IV 10 ml BID [facility] Administration Sodium Chloride 10 ml 06/27/19 15:50 Sodium Chloride Flush Syringe 10 Ml IV PRN PRN LINE FLUSH
--- NOTE | 2019-06-29 09:21 | Cat Scan Report ---
CT ABDOMEN AND PELVIS WITHOUT CONTRAST INDICATION: Intractable nausea with vomiting. COMPARISON: No relevant prior imaging study available. TECHNIQUE: Axial, coronal and sagittal CT imaging of the abdomen and pelvis was performed without co ntrast. Lack of intravenous contrast limits evaluation of the vascular and solid organs. All CT sca ns at this location are performed using CT dose reduction for ALARA by means of automated exposure co ntrol. FINDINGS: LOWER CHEST: There is bibasilar atelectasis without an additional significant abnormality. LIVER: No significant abnormality. BILIARY: No significant abnormality. PANCREAS: No significant abnormality. SPLEEN: No significant abnormality. ADRENALS: No significant abnormality. KIDNEYS AND URETERS: No significant abnormality. GI TRACT: Surgical changes are seen along the stomach without an acute abnormality. No acute abnormal ity is seen along the small bowel or colon. The appendix is unremarkable. PERITONEUM: No free fluid. No free air. No fluid collection. LYMPH NODES: No significant adenopathy. VASCULATURE: No significant abnormality. URINARY BLADDER: No significant abnormality. REPRODUCTIVE ORGANS: No significant abnormality. ADDITIONAL FINDINGS: Anasarca is noted with scattered nonspecific subcutaneous gas along the abdomina l wall and right gluteal region. SKELETAL SYSTEM: No acute abnormality is identified. IMPRESSION: 1. Anasarca with nonspecific scattered subcutaneous gas along the abdominal wall and right gluteal re gion. Please correlate with the patient's history. 2. No other acute abnormality is seen to explain her nausea and vomiting. Signer Name: Marcos Ryder MD Signed: 06/29/2019 9:16 AM Workstation Name: [employer]
[2019-06-29] MEDS: FAMOTIDINE 20 MG TAB PO SCH (10:00)
[2019-06-29] MEDS: PROMETHAZINE 25 MG TAB PO PRN (10:07)
[2019-06-29] MEDS: HYDROmorphone 1 MG/1 ML INJ IV PRN ×2 (10:08→14:19)
[2019-06-29 12:03] VITALS: BP 132/82
--- NOTE | 2019-06-29 15:26 | Discharge Summary ---
Providers - Providers Date of Admission: 06/27/19 15:50 Date of discharge: 06/29/19 Attending physician: NEHEMIAS CARMICHAEL Primary care physician: MANUFACTURING ENGINEER Hospitalization Condition: Critical Hospital course: Patient 38 years old with a history of gastric bypass surgery and recent liposuction with fat transformation to buttocks. Unit with persistent nausea vomiting at one time. Patient tolerated clear liquids. Was thought to be secondary to gastric sleeve. Patient did have EGD done by Dr. Lawrence. Apparently unremarkable. Patient can follow with outpatient bariatric surgery and GI. Now tolerating clear full liquid diet. Also presents complaining of pain. She takes hydrocodone at home. She is stabilized with pain able for discharge. No evidence of cellulitis along the area. Patient did have a small area of dehiscence which she should follow with the surgeon as well on right side but does not appear to be affected at all. Disposition: - TO HOME OR SELFCARE - Discharge Diagnoses (1) Nausea Status: Acute (2) Anemia Status: Acute Qualifiers: Anemia type: unspecified type Qualified Code(s): D64.9 - Anemia, unspecified Comment: Anemia stable continue iron. Hemoglobin was 8. No need for transfusion. This is all status post surgery as well. (3) GERD (gastroesophageal reflux disease) Status: Acute Qualifiers: Esophagitis presence: without esophagitis Qualified Code(s): K21.9 - Gastro-esophageal reflux disease without esophagitis (4) Obesity (BMI 35.0-39.9 without comorbidity) Status: Acute Core Measure Documentation - Palliative Care Palliative Care/ Comfort Measures: Not Applicable - Core Measures Any of the following diagnoses?: none Exam - Constitutional Vitals: Temp Pulse Resp BP Pulse Ox 98.8 F 103 H 18 132/82 97 06/29/19 11:23 06/29/19 11:23 06/29/19 11:23 06/29/19 11:23 06/29/19 11:23 General appearance: Present: no acute distress, well-nourished - EENT Eyes: Present: PERRL ENT: hearing intact, clear oral mucosa - Neck Neck: Present: supple, normal ROM - Respiratory Respiratory effort: normal Respiratory: bilateral: CTA - Cardiovascular Heart Sounds: Present: S1 & S2. Absent: rub, click - Extremities Extremities: pulses symmetrical, No edema Peripheral Pulses: within normal limits - Abdominal General gastrointestinal: Present: soft, non-tender, non-distended, normal bowel sounds, other (should have a small wound dehiscence from liposuction area. Pelvic area.) Female genitourinary: Present: normal - Integumentary Integumentary: Present: clear, warm, dry - Musculoskeletal Musculoskeletal: gait normal, strength equal bilaterally - Psychiatric Psychiatric: appropriate mood/affect, intact judgment & insight - Neurologic Neurologic: CNII-XII intact, moves all extremities Plan Activity: avoid flexion Diet: advance as tolerated, other (full liquid.) Wound: open to air Follow up with: PRIMARY CARE, [Primary Care Provider] - 3-5 Days Prescriptions: HYDROcodone/APAP 5-325 [[place] 5-325 mg TAB] 1 each PO Q6HR PRN #30 tablet PRN Reason: Pain Promethazine [Phenergan] 25 mg PO Q6H PRN #30 tablet PRN Reason: Nausea And Vomiting methOCARBAMOL [Robaxin TAB] 500 mg PO Q6H PRN #20 tablet PRN Reason: Pain , Severe
== END 2019-06-29 16:20 | disposition home or self-care (01) ==
LOC: ED 15:33 → 3A 15:50
PROVIDERS: ADMIT Internal Medicine; ATTEND Internal Medicine
DX: D64.9 Anemia, unspecified (principal); R07.89 Other chest pain; K21.9 Gastro-esophageal reflux disease without esophagitis; E66.9 Obesity, unspecified; R06.00 Dyspnea, unspecified; R10.819 Abdominal tenderness, unspecified site; Z88.0 Allergy status to penicillin; Z88.6 Allergy status to analgesic agent; Z23 Encounter for immunization
CPT/HCPCS: 36415; 36430; 71045; 71275; 74176; 80053; 81001; 84703; 85025; 86850; 86900; 86901; 86920; 87116; 90686; 90732; 93005; 93010; 94640; 96361; 96374; 96375; 96376; 99291; G0008; G0378; J1170; J1200; J2270; J2405; J2765; J7030; P9016; Q0169; Q9967; 90471

== ENCOUNTER 2019-07-04 16:24 | Inpatient (IN) | payer MEDICAID ==
--- NOTE | 2019-07-04 16:50 | Event Note ---
ED Screening Note Date of service: 07/04/19 Time: 16:38 ED Screening Note: Patient reports that she was here less than a week ago and was admitted for 2 days. She reports received blood. H/O LIPO suction and [place] butt lift 06/19/2019 in [place]. Gastric sleeve 10/2018. Reports that she went to [place] 3 days ago and was told that she is severly malnourished and severe protein deficiency. PCP Dr. Mckenzie saw her yesterday and referred her to GI specialist but she said she cannot wait because skin is tearing due to protein deficience. Reports sob/ and swelling with pain in legs. was given lasix but reports swelling and bloating This initial assessment/diagnostic orders/clinical plan/treatment(s) is/are subject to change based on patients health status, clinical progression and re- assessment by fellow clinical providers in the ED. Further treatment and workup at subsequent clinical providers discretion. Patient/guardian urged not to elope from the ED as their condition may be serious if not clinically assessed and managed. Initial orders include: labs, xray ? cTA, INT 20G in ac
[2019-07-04 18:21] LABS: Basophils # (Auto) 0.1 K/mm3 (0.0-0.1); Basophils % (Auto) 1.1 % (0.0-1.8); Eosinophils # (Auto) 0.2 K/mm3 (0.0-0.4); Eosinophils % (Auto) 2.3 % (0.0-4.3); Hematocrit 28.2 % (30.3-42.9); Hemoglobin 9.2 gm/dl (10.1-14.3); Lymphocytes # (Auto) 1.5 K/mm3 (1.2-5.4); Lymphocytes % (Auto) 16.7 % (13.4-35.0); Mean Corpuscular HGB Conc 33 % (30-34); Mean Corpuscular Volume 89 fl (79-97); Monocytes # (Auto) 0.3 K/mm3 (0.0-0.8); Monocytes % (Auto) 2.8 % (0.0-7.3); Platelet Count 651 K/mm3 (140-440); Red Blood Count 3.16 M/mm3 (3.65-5.03); Red Cell Distribution Width 15.8 % (13.2-15.2)
[2019-07-04 18:26] LABS: Alanine Aminotransferase 8 units/L (7-56); Albumin 3.1 g/dL (3.9-5); BUN/Creatinine Ratio 28; Blood Urea Nitrogen 14 mg/dL (7-17); Calcium 8.7 mg/dL (8.4-10.2); Hemolysis Index 3
[2019-07-04 18:32] LABS: INR 1.01 (0.87-1.13)
[2019-07-04 18:33] LABS: Partial Thromboplastin Time 29.2 Sec. (24.2-36.6)
[2019-07-04] MEDS ORDERED: ACETAMINOPHEN 325 MG/10.15 ML ORAL LIQD UNIT DOSE PO ONE (18:47)
[2019-07-04] MEDS ORDERED: FAMOTIDINE 20 MG/2 ML INJ IV ONE (18:47)
[2019-07-04] MEDS ORDERED: ONDANSETRON 4 MG/2 ML INJ IV ONE (18:47)
--- NOTE | 2019-07-04 18:56 | Emergency Department Report ---
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 This patient is not known to this provider previously. The patient had a gastric bypass surgery performed in [place], October of this year. Within the past couple weeks, she had elective outpatient plastic surgery performed in [place], liposuction of fat, with transfer to [facility]. The patient was recently admitted to this hospital for chest pain, abdominal pain, nausea, vomiting and anemia. The patient was discharged on June 28. Apparently, she was documented to have been tolerating a clear liquid diet. Today, the patient presents to the ER with a recurrent complaint of nausea and vomiting, nonbloody, nonbilious, clear, normal bowel movement, inability to tolerate liquid feeds, weakness, lightheadedness, lower leg swelling, reported shortness of breath, and fatigue. She also complains of wounds to her bilateral posterior back, and right lower quadrant. She believes that her skin is "tearing." The lower extremity swelling present for over a week. It is constant and does not radiate anywhere. She believes that her wounds in the right lower quadrant, and bilateral back/flanks are new, but she is not sure. She is not sure what time she last vomited. She makes no complaint of headache, neck pain, chest pain. She makes no complaint of urinary symptoms. -: Gradual, days(s) Location: back, abdomen, buttocks, left, right, lower extremity Quality: aching Consistency: constant Improves with: rest Worsens with: movement - Related Data Previous Rx's Medication Instructions Recorded Last Taken Type Promethazine [Phenergan] 25 mg PO Q6HR PRN #20 tab 05/05/16 Unknown Rx Promethazine [Phenergan] 25 mg PO Q6H PRN #30 tablet 06/29/19 Unknown Rx methOCARBAMOL [Robaxin TAB] 500 mg PO Q6H PRN #20 tablet 06/29/19 Unknown Rx Allergies Allergy/AdvReac Type Severity Reaction Status Date / Time codeine Allergy Itching Verified 06/27/19 12:13 Penicillins Allergy Itching Verified 06/27/19 12:13 ED Review of Systems ROS: Stated complaint: SWELLING/BACK/MOUTH SORES Other details as noted in HPI Constitutional: malaise. denies: fever Eyes: denies: eye discharge ENT: denies: congestion Respiratory: shortness of breath Cardiovascular: edema. denies: syncope Gastrointestinal: nausea, vomiting. denies: diarrhea, constipation, hematemesis, melena, hematochezia Genitourinary: denies: dysuria Skin: lesions Neurological: weakness Hematological/Lymphatic: denies: easy bleeding ED Past Medical Hx - Past Medical History Previous Medical History?: Yes Hx Congestive Heart Failure: No Hx Diabetes: No Hx GERD: Yes Hx Asthma: Yes Hx COPD: No - Surgical History Past Surgical History?: Yes Additional Surgical History: C- section x 4; foot surgery 2000. GASTRIC SLEEVE. 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 Absent: nystagmus - ENT ENT exam: Present: normal exam, normal orophraynx, mucous membranes moist, normal external ear exam - Neck Neck exam: Present: normal inspection, full ROM. Absent: tenderness, meningismus - Respiratory Respiratory exam: Present: normal lung sounds bilaterally. Absent: respiratory distress - Cardiovascular Cardiovascular Exam: Present: normal rhythm, tachycardia, normal heart sounds. Absent: systolic murmur, diastolic murmur, rubs, gallop - GI/Abdominal GI/Abdominal exam: Present: soft, other (there is induration noted in the right lower quadrant. There is a white plaque wounds noted in the right lower quadra nt with minimal necrotic tissue.). Absent: distended, tenderness, guarding, rebound, rigid, pulsatile mass - Rectal Rectal exam: Present: tenderness, other (there is diffuse gluteal swelling. Her scant ecchymosis. There is no redness, pus or streaking. Cio by nurse Raghav West) - Extremities Exam Extremities exam: Present: normal inspection, full ROM, pedal edema, other (2+ pulses noted in the bilateral upper, lower extremities. 1+ edema noted in the bilateral lower extremities. The compartments are soft.) - Back Exam Back exam: Present: tenderness, paraspinal tenderness, other (on the bilateral paralumbar regions, skin excoriation is noted, without redness, pus or streaking, underlying erythematous tissue is noted, but is not especially tender. There is crepitus appreciated.). Absent: CVA tenderness (R), CVA tenderness (L), vertebral tenderness - Neurological Exam Neurological exam: Present: alert, oriented X3, other (there is no facial droop. The tongue is midline. Extraocular movements are intact bilaterally. Patient speaking in full complete sentences. Shoulder shrug is intact bilaterally. Hearing is grossly intact bilaterally. Visual acuity intact to finger counting and color perception at a close distance. 5/5 strength 4 extremities. Sensation intact to light touch in 4 extremities.). Absent: motor sensory deficit - Psychiatric Psychiatric exam: Present: normal affect, normal mood - Skin Skin exam: Present: warm ED Course Vital Signs 07/04/19 07/04/19 07/04/19 16:38 19:15 20:09 Temperature 97.7 F 98 F Pulse Rate 108 H 101 H Respiratory 20 15 Rate Blood Pressure 130/72 130/73 Blood Pressure 130/73 [Right] O2 Sat by Pulse 100 99 100 Oximetry 07/04/19 07/04/19 20:30 21:00 Temperature Pulse Rate Respiratory Rate Blood Pressure 118/70 134/77 Blood Pressure [Right] O2 Sat by Pulse 98 100 Oximetry - Reevaluation(s) Reevaluation #1: 07/04/19 19:13 Differential diagnosis, including not limited to: Obstruction, surgical side effect, pulmonary embolism, DVT, dependent edema, pneumonia, postsurgical wounds, cyclic vomiting syndrome, cannabinoid hyperemesis syndrome, narcotic bowel syndrome Assessment and plan: 38-year-old female complaining of lower extremities swelling, nausea vomiting, and wounds. Her wounds do not appear to be superinfected. There is no active dehiscence noted. Her exam at this time is not consistent with active cellulitis, abscess. CT scan within the past week showed evidence of surgery. She also endorses dark subacute lower extremities swelling. She made complaints of being told that she had "low-protein", and is found to be minimally hypoalbuminemic. A d-dimer was sent prior to my evaluation is found to be quite elevated. We will treat the patient's symptoms with nonnarcotic therapy, give IV fluids, Zofran, Pepcid and liquid acetaminophen. CT scan chest, abdomen pelvis ordered. The patient will be reassessed. Reevaluation #2: 07/04/19 23:05 CT scan chest negative for acute findings. CT scan abdomen pelvis suggests possible early postoperative abscess. Contacted our general surgeon, Dr. Issa Arredondo, who agrees to follow in consultation. Contacted Hospital physician, Dr.V Jacobs who will admit Defer to inpatient team to follow up on lower extremity DVT study. Hypoalbum inemia likely secondary to protein calorie malnutrition, likely secondary to gastric bypass, it does not appear that the patient is non compliant with appropriate gastric bypass vitamins will defer to inpatient team to follow up on vitamins ED Medical Decision Making - Lab Data Result diagrams: 07/04/19 17:40 07/04/19 17:40 Vital Signs 07/04/19 16:38 Temperature 97.7 F Pulse Rate 108 H Respiratory 20 Rate Blood Pressure 130/72 O2 Sat by Pulse 100 Oximetry Lab Results 07/04/19 07/04/19 07/04/19 Range/Units 17:40 17:40 17:40 WBC 9.0 (4.5-11.0) K/mm3 RBC 3.16 L (3.65-5.03) M/mm3 Hgb 9.2 L (10.1-14.3) gm/dl Hct 28.2 L (30.3-42.9) % MCV 89 (79-97) fl MCH 29 (28-32) pg MCHC 33 (30-34) % RDW 15.8 H (13.2-15.2) % Plt Count 651 H (140-440) K/mm3 Lymph % (Auto) 16.7 (13.4-35.0) % [place] % (Auto) 2.8 (0.0-7.3) % Eos % (Auto) 2.3 (0.0-4.3) % Baso % (Auto) 1.1 (0.0-1.8) % Lymph # 1.5 (1.2-5.4) K/mm3 Morris # 0.3 (0.0-0.8) K/mm3 Eos # 0.2 (0.0-0.4) K/mm3 Baso # 0.1 (0.0-0.1) K/mm3 Seg Neutrophils % 77.1 H (40.0-70.0) % Seg Neutrophils # 6.9 (1.8-7.7) K/mm3 PT 13.2 (12.2-14.9) Sec. INR 1.01 (0.87-1.13) APTT 29.2 (24.2-36.6) Sec. D-Dimer 1097.62 H (0-234) ng/mlDDU Sodium 140 (137-145) mmol/L Potassium 4.2 (3.6-5.0) mmol/L Chloride 103.2 (98-107) mmol/L Carbon Dioxide 21 L (22-30) mmol/L Anion Gap 20 mmol/L BUN 14 (7-17) mg/dL Creatinine 0.5 L (0.7-1.2) mg/dL Estimated GFR > 60 ml/min BUN/Creatinine Ratio 28 % Glucose 96 (65-100) mg/dL Calcium 8.7 (8.4-10.2) mg/dL Magnesium (1.7-2.3) mg/dL Total Bilirubin 0.20 (0.1-1.2) mg/dL AST 16 (5-40) units/L ALT 8 (7-56) units/L Alkaline Phosphatase 70 (35-129) units/L Total Protein 6.8 (6.3-8.2) g/dL Albumin 3.1 L (3.9-5) g/dL Albumin/Globulin Ratio 0.8 % HCG, Qual (Negative) 07/04/19 07/04/19 07/04/19 Range/Units 17:40 17:40 17:40 WBC (4.5-11.0) K/mm3 RBC (3.65-5.03) M/mm3 Hgb (10.1-14.3) gm/dl Hct (30.3-42.9) % MCV (79-97) fl MCH (28-32) pg MCHC (30-34) % RDW (13.2-15.2) % Plt Count (140-440) K/mm3 Lymph % (Auto) (13.4-35.0) % Morris % (Auto) (0.0-7.3) % Eos % (Auto) (0.0-4.3) % Baso % (Auto) (0.0-1.8) % Lymph # (1.2-5.4) K/mm3 Morris # (0.0-0.8) K/mm3 Eos # (0.0-0.4) K/mm3 Baso # (0.0-0.1) K/mm3 Seg Neutrophils % (40.0-70.0) % Seg Neutrophils # (1.8-7.7) K/mm3 PT (12.2-14.9) Sec. INR (0.87-1.13) APTT (24.2-36.6) Sec. D-Dimer 1025.02 H (0-234) ng/mlDDU Sodium (137-145) mmol/L Potassium (3.6-5.0) mmol/L Chloride (98-107) mmol/L Carbon Dioxide (22-30) mmol/L Anion Gap mmol/L BUN (7-17) mg/dL Creatinine (0.7-1.2) mg/dL Estimated GFR ml/min BUN/Creatinine Ratio % Glucose (65-100) mg/dL Calcium (8.4-10.2) mg/dL Magnesium 2.00 (1.7-2.3) mg/dL Total Bilirubin (0.1-1.2) mg/dL AST (5-40) units/L ALT (7-56) units/L Alkaline Phosphatase (35-129) units/L Total Protein (6.3-8.2) g/dL Albumin (3.9-5) g/dL Albumin/Globulin Ratio % HCG, Qual Negative (Negative) - EKG Data -: EKG Interpreted by Ak EKG shows normal: sinus rhythm Rate: normal - EKG Data 07/04/19 19:15 The EKG sinus rhythm, 86 bpm, normal axis, QTC within normal limits, there is low voltage, poor all with progression, the EKG is abnormal, it is not consistent with a STEMI. The EKG today appears to be unchanged from the patient's prior EKG from June 2019. - Radiology Data Radiology results: report reviewed, image reviewed Critical care attestation.: If time is entered above; I have spent that time in minutes in the direct care of this critically ill patient, excluding procedure time. ED Disposition Clinical Impression: Postoperative abscess, Nausea, Anemia, Leg swelling, Noncompliance, History of gastric bypass Disposition: DC-09 OP ADMIT IP TO THIS HOSP Is pt being admited?: Yes Does the pt Need Aspirin: No Condition: Good
[2019-07-04] MEDS ORDERED: D5W/0.45% NACL 1,000 ML IV SCH (19:00)
[2019-07-04 19:54] LABS: Bilirubin,Urine NEG (Negative); Blood,Urine NEG (Negative); Color,Urine Yellow (Yellow); Mucus,Urine FEW /HPF; Protein,Urine <15 mg/dL mg/dL (Negative); WBC,Urine < 1.0 /HPF (0.0-6.0)
[2019-07-04 20:03] LABS: Amphetamine Screen,Urine PRESUMPTIVE NEGATIVE; Benzodiazepines Screen,Urine PRESUMPTIVE NEGATIVE; Cannabinoid Screen,Urine PRESUMPTIVE NEGATIVE; Cocaine Screen,Urine PRESUMPTIVE NEGATIVE; Methadone Screen,Urine PRESUMPTIVE NEGATIVE; Opiate Screen,Urine PRESUMPTIVE NEGATIVE
--- NOTE | 2019-07-04 20:44 | Cat Scan Report ---
CTA chest with contrast INDICATION : sob dizzy leg swollen + d dimer. TECHNIQUE: Axial imaging performed through the chest, with contrast bolus timing set to maximize opa cification of the pulmonary arteries. 3-plane MIP reformatted images were obtained. All CT scans at this location are performed using CT dose reduction for ALARA by means of automated exposure control. 100 mL of intravenous contrast administered. COMPARISON: CTA chest from 06/27/2019 FINDINGS: Bolus: Contrast bolus timing is adequate. PTE: No filling defect is present to suggest PTE. Mediastinum: Heart and great vessels appear normal. No pathologic mediastinal adenopathy. Lungs: Lungs are clear. Upper abdomen: Limited imaging of the upper abdomen shows nothing acute. There is generalized body wall edema. Bones: Degenerative changes in the spine with nothing acute. IMPRESSION: Negative for PTE. Clear lungs. Mild anasarca incidentally noted. Signer Name: Terrell Viera MD Signed: 07/04/2019 8:40 PM Workstation Name: [id number]
--- NOTE | 2019-07-04 20:54 | Cat Scan Report ---
CT ABDOMEN AND PELVIS WITH CONTRAST HISTORY: back wound from surgery. COMPARISON: CT abdomen/pelvis from 06/29/2019 TECHNIQUE: CT images of the abdomen and pelvis were obtained following administration of intravenous contrast. All CT scans at this location are performed using CT dose reduction for ALARA by means of automated exposure control. CONTRAST: 100 ml of intravenous contrast administered. FINDINGS: Lungs/bones: The lung bases are clear. No acute osseous abnormality identified. Abdomen/pelvis: The liver, gallbladder, spleen, pancreas, adrenals, and kidneys appear unremarkable. Gastric bypass changes are present. There is generalized body wall edema and a fluid collection over the left posterior back which measur es approximately 6.8 x 1.9 cm in maximal transverse dimensions on image #69 of series #3 and approxim ately 3.9 cm in craniocaudal length on image 117 of series 605. Urinary bladder and reproductive organs are unremarkable with probable functional cyst in the right o vary and small amount of pelvic free fluid. No acute colonic abnormality identified. IMPRESSION: 1. Generalized anasarca with small subcutaneous collection over the left back as outlined above. Kris elate for potential abscess formation given the history. Signer Name: Terrell Viera MD Signed: 07/04/2019 8:49 PM Workstation Name: [id number]
[2019-07-04] MEDS ORDERED: CLINDAMYCIN 600 MG/50 mL 600 MG/50 ML BAG IV ONE (21:16)
[2019-07-04] MEDS ORDERED: METOCLOPRAMIDE 10 MG/2 ML INJ ONE (22:17)
[2019-07-04] MEDS ORDERED: METOCLOPRAMIDE 10 MG/2 ML INJ IV ONE (22:21)
--- NOTE | 2019-07-05 00:34 | History and Physical Report ---
History of Present Illness Date of examination: 07/04/19 Date of admission: 07/04/19 23:08 Chief complaint: persistent vomiting for 1 day History of present illness: [id number] female with history of gastric bypass surgery in October of this year in [place] followed by followed by elective outpatient plastic surgery for liposuction and a procedure called butt lift [place]. Patient was recently discharged on June 28 after being admitted for chest pain and abdominal pain nausea and vomiting. Patient complains of pain in the left supra gluteal region. Patient also complains of nausea vomiting and difficulty tolerating clear liquids. No fever or chills. Past Medical History Previous Medical History?: Yes GERD: Yes Asthma: Yes Surgical History Past Surgical History?: Yes Additional Surgical History: C- section x 4; foot surgery 2000. GASTRIC SLEEVE. LIPO AND FAT TRANSFER to gluteal region as part of butt lift Social History Smoking Status: Never Smoker Substance Use Type: None Family history hypertension Medications Home Medications: Home Medications Medication Instructions Recorded Confirmed Last Taken Type Promethazine [Phenergan] 25 mg PO Q6HR PRN #20 tab 05/05/16 07/04/19 Unknown Rx Promethazine [Phenergan] 25 mg PO Q6H PRN #30 tablet 06/29/19 07/04/19 Unknown Rx methOCARBAMOL [Robaxin TAB] 500 mg PO Q6H PRN #20 tablet 06/29/19 07/04/19 Unknown Rx Review of Systems ROS: Stated complaint: SWELLING/BACK/MOUTH SORES Other details as noted in HPI Constitutional: malaise. denies: fever Eyes: denies: eye discharge ENT: denies: congestion Respiratory: shortness of breath Cardiovascular: edema. denies: syncope Gastrointestinal: nausea, vomiting. denies: diarrhea, constipation, hematemesis, melena, hematochezia Genitourinary: denies: dysuria Skin: lesions Neurological: weakness Hematological/Lymphatic: denies: easy bleeding Medications and Allergies Allergies Allergy/AdvReac Type Severity Reaction Status Date / Time codeine Allergy Itching Verified 06/27/19 12:13 Penicillins Allergy Itching Verified 06/27/19 12:13 Home Medications Medication Instructions Recorded Confirmed Last Taken Type Promethazine [Phenergan] 25 mg PO Q6HR PRN #20 tab 05/05/16 07/04/19 Unknown Rx Promethazine [Phenergan] 25 mg PO Q6H PRN #30 tablet 06/29/19 07/04/19 Unknown Rx methOCARBAMOL [Robaxin TAB] 500 mg PO Q6H PRN #20 tablet 06/29/19 07/04/19 Unknown Rx Active Meds: Active Medications Dextrose/Sodium Chloride (D5/0.45ns) 1,000 mls @ 0 mls/hr IV DIRECT MARQUITA Last Admin: 07/04/19 20:02 Dose: 1,000 mls/hr Documented by: Exam - Constitutional Vitals: Temp Pulse Resp BP Pulse Ox 98 F 101 H 15 132/80 99 07/04/19 19:15 07/04/19 19:15 07/04/19 19:15 07/04/19 23:00 07/04/19 23:00 General appearance: Present: no acute distress, well-nourished - EENT Eyes: Present: PERRL ENT: hearing intact, clear oral mucosa - Neck Neck: Present: supple, normal ROM - Respiratory Respiratory effort: normal Respiratory: bilateral: CTA - Cardiovascular Heart rate: 80 Rhythm: regular Heart Sounds: Present: S1 & S2. Absent: rub, click - Extremities Extremities: no ischemia, pulses intact, pulses symmetrical, No edema Peripheral Pulses: within normal limits - Abdominal General gastrointestinal: Present: soft, non-tender, non-distended, normal bowel sounds, other (abscess left posterior lower back-fluctuant with open ulcer which is superficial) Female genitourinary: Present: normal - Rectal Rectal Exam: deferred - Integumentary Integumentary: Present: clear, warm, dry - Musculoskeletal Musculoskeletal: gait normal, strength equal bilaterally - Psychiatric Psychiatric: appropriate mood/affect, intact judgment & insight - Neurologic Neurologic: CNII-XII intact, moves all extremities - Allied Health Allied health notes reviewed: nursing, case management Results - Labs CBC & Chem 7: 07/04/19 17:40 07/04/19 17:40 Labs: Laboratory Last Values WBC 9.0 K/mm3 (4.5-11.0) 07/04/19 17:40 RBC 3.16 M/mm3 (3.65-5.03) L 07/04/19 17:40 Hgb 9.2 gm/dl (10.1-14.3) L 07/04/19 17:40 Hct 28.2 % (30.3-42.9) L 07/04/19 17:40 MCV 89 fl (79-97) 07/04/19 17:40 MCH 29 pg (28-32) 07/04/19 17:40 MCHC 33 % (30-34) 07/04/19 17:40 RDW 15.8 % (13.2-15.2) H 07/04/19 17:40 Plt Count 651 K/mm3 (140-440) H 07/04/19 17:40 Lymph % (Auto) 16.7 % (13.4-35.0) 07/04/19 17:40 [place] % (Auto) 2.8 % (0.0-7.3) 07/04/19 17:40 Eos % (Auto) 2.3 % (0.0-4.3) 07/04/19 17:40 Baso % (Auto) 1.1 % (0.0-1.8) 07/04/19 17:40 Lymph # 1.5 K/mm3 (1.2-5.4) 07/04/19 17:40 [place] # 0.3 K/mm3 (0.0-0.8) 07/04/19 17:40 Eos # 0.2 K/mm3 (0.0-0.4) 07/04/19 17:40 Baso # 0.1 K/mm3 (0.0-0.1) 07/04/19 17:40 Seg Neutrophils % 77.1 % (40.0-70.0) H 07/04/19 17:40 Seg Neutrophils # 6.9 K/mm3 (1.8-7.7) 07/04/19 17:40 PT 13.2 Sec. (12.2-14.9) 07/04/19 17:40 INR 1.01 (0.87-1.13) 07/04/19 17:40 APTT 29.2 Sec. (24.2-36.6) 07/04/19 17:40 D-Dimer 1025.02 ng/mlDDU (0-234) H 07/04/19 17:40 D-Dimer 1097.62 ng/mlDDU (0-234) H 07/04/19 17:40 Sodium 140 mmol/L (137-145) 07/04/19 17:40 Potassium 4.2 mmol/L (3.6-5.0) 07/04/19 17:40 Chloride 103.2 mmol/L (98-107) 07/04/19 17:40 Carbon Dioxide 21 mmol/L (22-30) L 07/04/19 17:40 Anion Gap 20 mmol/L 07/04/19 17:40 BUN 14 mg/dL (7-17) 07/04/19 17:40 Creatinine 0.5 mg/dL (0.7-1.2) L 07/04/19 17:40 Estimated GFR > 60 ml/min 07/04/19 17:40 BUN/Creatinine Ratio 28 % 07/04/19 17:40 Glucose 96 mg/dL (65-100) 07/04/19 17:40 Calcium 8.7 mg/dL (8.4-10.2) 07/04/19 17:40 Magnesium 2.00 mg/dL (1.7-2.3) 07/04/19 19:07 Total Bilirubin 0.20 mg/dL (0.1-1.2) 07/04/19 17:40 AST 16 units/L (5-40) 07/04/19 17:40 ALT 8 units/L (7-56) 07/04/19 17:40 Alkaline Phosphatase 70 units/L (35-129) 07/04/19 17:40 Total Creatine Kinase 33 units/L (30-135) 07/04/19 19:07 Total Protein 6.8 g/dL (6.3-8.2) 07/04/19 17:40 Albumin 3.1 g/dL (3.9-5) L 07/04/19 17:40 Albumin/Globulin Ratio 0.8 % 07/04/19 17:40 TSH 1.010 mlU/mL (0.270-4.200) 07/04/19 19:20 HCG, Qual Negative (Negative) 07/04/19 17:40 Urine Color Yellow (Yellow) 07/04/19 19:45 Urine Turbidity Clear (Clear) 07/04/19 19:45 Urine pH 7.0 (5.0-7.0) 07/04/19 19:45 Ur Specific [place] 1.021 (1.003-1.030) 07/04/19 19:45 Urine Protein <15 mg/dl mg/dL (Negative) 07/04/19 19:45 Urine Glucose (UA) Neg mg/dL (Negative) 07/04/19 19:45 Urine Ketones Neg mg/dL (Negative) 07/04/19 19:45 Urine Blood Neg (Negative) 07/04/19 19:45 Urine Nitrite Neg (Negative) 07/04/19 19:45 Urine Bilirubin Neg (Negative) 07/04/19 19:45 Urine Urobilinogen 2.0 mg/dL (<2.0) 07/04/19 19:45 Ur Leukocyte Esterase Neg (Negative) 07/04/19 19:45 Urine WBC (Auto) < 1.0 /HPF (0.0-6.0) 07/04/19 19:45 Urine RBC (Auto) 2.0 /HPF (0.0-6.0) 07/04/19 19:45 U Epithel Cells (Auto) 4.0 /HPF (0-13.0) 07/04/19 19:45 Urine Mucus Few /HPF 07/04/19 19:45 Urine Opiates Screen Presumptive negative 07/04/19 19:30 Urine Methadone Screen Presumptive negative 07/04/19 19:30 Ur Barbiturates Screen Presumptive negative 07/04/19 19:30 Ur Phencyclidine Scrn Presumptive negative 07/04/19 19:30 Ur Amphetamines Screen Presumptive negative 07/04/19 19:30 U Benzodiazepines Scrn Presumptive negative 07/04/19 19:30 Urine Cocaine Screen Presumptive negative 07/04/19 19:30 U Marijuana (THC) Screen Presumptive negative 07/04/19 19:30 Drugs of Abuse Note Disclamer 07/04/19 19:30 Short CBC 07/04/19 Range/Units 17:40 WBC 9.0 (4.5-11.0) K/mm3 Hgb 9.2 L (10.1-14.3) gm/dl Hct 28.2 L (30.3-42.9) % Plt Count 651 H (140-440) K/mm3 BMP 07/04/19 17:40 Sodium 140 Potassium 4.2 Chloride 103.2 Carbon Dioxide 21 L BUN 14 Creatinine 0.5 L Glucose 96 Calcium 8.7 Cardiac Enzymes 07/04/19 Range/Units 19:07 Total Creatine Kinase 33 (30-135) units/L Liver Function 07/04/19 Range/Units 17:40 Total Bilirubin 0.20 (0.1-1.2) mg/dL AST 16 (5-40) units/L ALT 8 (7-56) units/L Alkaline Phosphatase 70 (35-129) units/L Albumin 3.1 L (3.9-5) g/dL Urine 07/04/19 Range/Units 19:45 Urine Color Yellow (Yellow) Urine pH 7.0 (5.0-7.0) Ur Specific [place] 1.021 (1.003-1.030) Urine Protein <15 mg/dl (Negative) mg/dL Urine Glucose (UA) Neg (Negative) mg/dL - Imaging and Cardiology EKG: report reviewed CT scan - abdomen: report reviewed Imaging and Cardiology: CT angiogram of the chest IMPRESSION: Negative for PTE. Clear lungs. Mild anasarca incidentally noted. CT abdomen and pelvis with contrast Generalized anasarca with small subcutaneous collection over the left back as outlined above--- there is generalized body wall edema and a fluid collection over the left posterior back which measures approximately 6.8 cm 1.9 cm in maximal transverse diameter and she has an approximately 3.9 cm in craniocaudal length. Assessment and Plan Advance Directives: Yes (full Code) Plan of care discussed with patient/family: Yes - Patient Problems (1) Postoperative abscess Current Visit: Yes Status: Acute Plan to address problem: IV Unasyn and vancomycin for now Surgery consult requested (2) History of gastric bypass Current Visit: Yes Status: Acute Plan to address problem: Patient has nausea and vomiting Treat symptomatically IV fluids IV Protonix (3) GERD (gastroesophageal reflux disease) Current Visit: No Status: Acute Qualifiers: Esophagitis presence: without esophagitis Qualified Code(s): K21.9 - Gastro-esophageal reflux disease without esophagitis Plan to address problem: IV Protonix for now (4) Anemia Current Visit: Yes Status: Chronic Qualifiers: Anemia type: unspecified type Qualified Code(s): D64.9 - Anemia, unspecified Plan to address problem: Anemia workup (5) Persistent vomiting Current Visit: Yes Status: Acute Plan to address problem: Symptomatic treatment IV fluids for now IV Zofran and Reglan for now GI consult if vomiting doesn't resolve (6) DVT prophylaxis Current Visit: No Status: Acute Plan to address problem: On heparin and GI prophylaxis
[2019-07-05] MEDS ORDERED: ACETAMINOPHEN 325 MG TAB PO PRN (00:52)
[2019-07-05] MEDS ORDERED: D5W/0.9% NACL 1,000 ML IV SCH (01:00)
[2019-07-05] MEDS: HEPARIN 5,000 UNIT/1 ML VIAL SUB-Q SCH ×3 (01:55→21:26)
[2019-07-05] MEDS: HYDROmorphone 1 MG/1 ML INJ IV PRN ×5 (02:19→21:26)
--- NOTE | 2019-07-05 10:45 | Consultation ---
History of Present Illness - Reason for Consult Consult date: 07/05/19 - History of Present Illness 38 yo F PMHx Hx of gastric bypass surgery ([place]) and recent liposuction and buttocks fat transformation surgery performed in [place] admitted for pain in the gluteal region. She natarajan been recently admitted last week for chest pain with associated abdominal pain and nausea, which was thought to be due to her gastric sleeve. During that admission she was noted to have a small area of dehiscence and was told to follow with her surgeon, though there was minimal concern for infection at that time. Currently she has ongoing nausea and vomiting. Denies fevers, sweats, chills. She does not some drainage on the dressings at home. Afebrile since admission with a white count of 9. Currently receiving levofloxacin. No cultures as yet. Imaging personally reviewed: CTAP - small cutaneous abscess over left back, anasarca CT chest - clear lungs Review of systems: Bold if positive; otherwise negative GENERAL: fever, chills, weight loss, fatigue, night sweats EYES: blurry vision, eye pain HENT: headache, hearing loss, sore throat, dysphagia, sinus pain CARDIO: chest pain, palpitations, orthopnea PULM: shortness of breath, wheezing, cough, sputum, hemoptysis GI: nausea, vomiting, diarrhea, abdominal pain, blood in stool : urinary frequency, urgency, dysuria, urethral discharge MSK: joint pain, back pain, swelling SKIN: rash, redness HEME: easy bruising, bleeding Past History Past Medical History: No medical history Past Surgical History: Other (gasdtric sleeve, buttocks fat transformation surgery) Social history: no significant social history Family history: no significant family history Medications and Allergies Allergies Allergy/AdvReac Type Severity Reaction Status Date / Time codeine Allergy Itching Verified 06/27/19 12:13 Penicillins Allergy Itching Verified 06/27/19 12:13 Home Medications Medication Instructions Recorded Confirmed Last Taken Type Promethazine [Phenergan] 25 mg PO Q6HR PRN #20 tab 05/05/16 07/04/19 Unknown Rx Promethazine [Phenergan] 25 mg PO Q6H PRN #30 tablet 06/29/19 07/04/19 Unknown Rx methOCARBAMOL [Robaxin TAB] 500 mg PO Q6H PRN #20 tablet 06/29/19 07/04/19 Unknown Rx Active Meds: Active Medications Acetaminophen (Tylenol) 650 mg PO Q4H PRN PRN Reason: Pain MILD(1-3)/Fever >100.5/NATARAJAN Heparin Sodium (Porcine) (Heparin) 5,000 unit SUB-Q Q12HR [facility] Last Admin: 07/05/19 01:55 Dose: 5,000 unit Documented by: Hydromorphone HCl (Dilaudid) 1 mg IV Q3H PRN PRN Reason: Pain , Severe (7-10) Last Admin: 07/05/19 06:55 Dose: 1 mg Documented by: Dextrose/Sodium Chloride (D5ns) 1,000 mls @ 75 mls/hr IV DIRECT [facility] Last Admin: 07/05/19 01:56 Dose: 75 mls/hr Documented by: Levofloxacin/Dextrose (Levaquin 750mg/150ml) 750 mg in 150 mls @ 100 mls/hr IV Q24HR [facility]; Protocol Folic Acid 1 mg/ Multivitamins /Minerals 10 ml/ Thiamine HCl 100 mg/ Sodium Chloride 1,000 mls @ 125 mls/hr IV .BY DURATION [facility] Sodium Chloride (Nacl 0.9% 1000 Ml) 1,000 mls @ 125 mls/hr IV .BY DURATION [facility] Metoclopramide HCl (Reglan) 10 mg IV Q6H PRN PRN Reason: Nausea And Vomiting Ondansetron HCl (Zofran) 4 mg IV Q3H PRN PRN Reason: Nausea And Vomiting Oxycodone/Acetaminophen (Percocet 5/325) 1 tab PO Q6H PRN PRN Reason: Pain, Moderate (4-6) Sodium Chloride (Sodium Chloride Flush Syringe 10 Ml) 10 ml IV BID [facility] Last Admin: 07/05/19 01:56 Dose: 10 ml Documented by: Sodium Chloride (Sodium Chloride Flush Syringe 10 Ml) 10 ml IV PRN PRN PRN Reason: LINE FLUSH Physical Examination - Physical Exam Narrative exam: General Normal appearance, well developed, no acute distress Eyes - PERRLA, EOM intact ENT - Moist mucous membranes, no lymphadenopathy Neck - No noticeable or palpable swelling, redness or rash around throat or on face Lymph Nodes - No lymphadenopathy Cardiovascular - RRR no m/r/g, no JVD, no carotid bruits Lungs - Clear to auscultation, no use of accessory muscles, no crackles or wheezes. Skin - No rashes, skin warm and dry, no erythematous areas Abdomen - Normal bowel sounds, abdomen soft and nontender Extremities - No edema, cyanosis or clubbing Musculoskeletal - 5/5 strength, normal range of motion, no swollen or erythematous joints. Neurological Alert and oriented x 3, CN 2-12 grossly intact. - Constitutional Vitals: Vital Signs Temp Pulse Resp BP Pulse Ox 98.7 F 88 16 121/70 100 07/05/19 05:37 07/05/19 05:37 07/05/19 07:25 07/05/19 05:37 07/05/19 05:37 Temperature -Last 24 Hours Temperature 98.7 F Temperature 98.7 F Temperature 98 F Temperature 97.7 F Results - Labs CBC & Chem 7: 07/04/19 17:40 07/04/19 17:40 Labs: Abnormal lab results 07/04/19 07/04/19 07/04/19 Range/Units 17:40 17:40 17:40 RBC 3.16 L (3.65-5.03) M/mm3 Hgb 9.2 L (10.1-14.3) gm/dl Hct 28.2 L (30.3-42.9) % RDW 15.8 H (13.2-15.2) % Plt Count 651 H (140-440) K/mm3 Seg Neutrophils % 77.1 H (40.0-70.0) % D-Dimer 1097.62 H (0-234) ng/mlDDU Carbon Dioxide 21 L (22-30) mmol/L Creatinine 0.5 L (0.7-1.2) mg/dL Albumin 3.1 L (3.9-5) g/dL 07/04/19 Range/Units 17:40 RBC (3.65-5.03) M/mm3 Hgb (10.1-14.3) gm/dl Hct (30.3-42.9) % RDW (13.2-15.2) % Plt Count (140-440) K/mm3 Seg Neutrophils % (40.0-70.0) % D-Dimer 1025.02 H (0-234) ng/mlDDU Carbon Dioxide (22-30) mmol/L Creatinine (0.7-1.2) mg/dL Albumin (3.9-5) g/dL Assessment and Plan Cultures None obtained Assessment: 38 yo F PMHx obesity, gastric sleeve, recent liposuction with buttocks fat transformation surgery admitted with abscess of the surgical area. 1. Surgical site abscess - with plastic surgery need to consider common causes of abscesses (i.e., MRSA) as well as uncommon causes (AFB; rapid growers). Would start vancomycin at this time. Recommend obtaining standard cultures from debridement as well as AFB cultures. Can tailor antibiotics pending culture results. 2. Nausea/vomiting - ?2/2 gastric sleeve surgery 3. Penicillin allergy Recs: - start vancomycin with PK dosing, goal trough 15-20. - continue levofloxacin 750mg q24h - obtain aerobic/anaerobic/AFB/fungal cultures from abscess drainage. Thank you for the consult, we will continue to follow. [facility] ([facility]) M: [phone] O: [phone] F: [phone]
[2019-07-05] MEDS: ONDANSETRON 4 MG/2 ML INJ IV PRN (11:09)
--- NOTE | 2019-07-05 11:20 | Vascular Lab Report ---
DUPLEX DOPPLER LOWER EXTREMITY VEINS, BILATERAL INDICATION / CLINICAL INFORMATION: b/l lower ext swelling. TECHNIQUE: Duplex doppler imaging was performed through the veins of both lower extremities using venous josef nolan and other maneuvers. COMPARISON: None available. FINDINGS: Right Common Femoral vein: Negative. Right Femoral vein: Negative. Right Popliteal vein: Negative. Right Calf veins: Negative. Left Common Femoral vein: Negative. Left Femoral vein: Negative. Left Popliteal vein: Negative. Left Calf veins: Negative. Additional findings: None. IMPRESSION: 1. No sonographic evidence for DVT in either lower extremity. Signer Name: Gemma Dee MD Signed: 07/05/2019 11:15 AM Workstation Name: [id number]
[2019-07-05] MEDS: 1: FOLIC ACID 1 MG, MULTIPLE VITAMIN INJ, ADULT 10 ML, THIAMINE 100 MG in SODIUM CHLORID IV SCH (15:00)
[2019-07-05] MEDS ORDERED: VANCOMYCIN PHARMACY TO DOSE IV SCH (15:00)
[2019-07-05] MEDS: METOCLOPRAMIDE 10 MG/2 ML INJ IV PRN (15:13)
--- NOTE | 2019-07-05 16:18 | Consultation ---
History of Present Illness Consult date: 07/05/19 Reason for consult: other (back abscess) Requesting physician: ROBERT BUENO Chief complaint: Chronic N/V and trunk pain - History of present illness History of present illness: 38yo F with involved medical history presents with complaints of N/V, and trunk pain. Pt reports that this all began in October of this year when she had a gastric sleeve surgery in [place]. Surgery was uneventful. She was back home after 6 days. One month later, she began to have persistent nausea, vomiting, heartburn. Patient was seen and evaluated by [facility]. EGD was done. She was diagnosed as having H. pylori. She was treated for that but her symptoms did not resolve. If anything, they're getting worse. She was scheduled to have a gastric emptying study but that still has not been done. On June 19, she traveled to [place] for a fat transfer plastic surgery p [facility]. She reports that after surgery, she had severe nausea and vomiting. She had significant pain throughout her trunk. The fat was removed from the anterior abdomen, flanks, and back. It was transferred to the buttocks and hips. She was seen by the surgeon the following day and the nurse the day after that. One week later, she began to have increased swelling and pain. Denies fevers. Has chills. Has not contacted the plastic surgeon. She went to her primary care doctor instead. Her swelling involving the chest, neck and face. She presented to the emergency room for evaluation of all the symptoms. Past History Past Medical History: No medical history Past Surgical History: Other (gasdtric sleeve, buttocks fat transformation surgery) Social history: no significant social history Family history: no significant family history Medications and Allergies Allergies Allergy/AdvReac Type Severity Reaction Status Date / Time codeine Allergy Itching Verified 06/27/19 12:13 Penicillins Allergy Itching Verified 06/27/19 12:13 Home Medications Medication Instructions Recorded Confirmed Last Taken Type Promethazine [Phenergan] 25 mg PO Q6HR PRN #20 tab 05/05/16 07/04/19 Unknown Rx Promethazine [Phenergan] 25 mg PO Q6H PRN #30 tablet 06/29/19 07/04/19 Unknown Rx methOCARBAMOL [Robaxin TAB] 500 mg PO Q6H PRN #20 tablet 06/29/19 07/04/19 Unknown Rx Active Meds: Active Medications Acetaminophen (Tylenol) 650 mg PO Q4H PRN PRN Reason: Pain MILD(1-3)/Fever >100.5/NATARAJAN Heparin Sodium (Porcine) (Heparin) 5,000 unit SUB-Q Q12HR [facility] Last Admin: 07/05/19 11:33 Dose: 5,000 unit Documented by: Hydromorphone HCl (Dilaudid) 1 mg IV Q3H PRN PRN Reason: Pain , Severe (7-10) Last Admin: 07/05/19 15:12 Dose: 1 mg Documented by: Levofloxacin/Dextrose (Levaquin 750mg/150ml) 750 mg in 150 mls @ 100 mls/hr IV Q24HR [facility]; Protocol Last Admin: 07/05/19 11:13 Dose: 100 mls/hr Documented by: Folic Acid 1 mg/ Multivitamins /Minerals 10 ml/ Thiamine HCl 100 mg/ Sodium Chloride 1,000 mls @ 125 mls/hr IV .BY DURATION [facility] Sodium Chloride (Nacl 0.9% 1000 Ml) 1,000 mls @ 125 mls/hr IV .BY DURATION [facility] Vancomycin HCl (Vancomycin/Ns 1 Gm/250 Ml) 1 gm in 250 mls @ 125 mls/hr IV Q8H [facility] Metoclopramide HCl (Reglan) 10 mg IV Q6H PRN PRN Reason: Nausea And Vomiting Last Admin: 07/05/19 15:13 Dose: 10 mg Documented by: Ondansetron HCl (Zofran) 4 mg IV Q3H PRN PRN Reason: Nausea And Vomiting Last Admin: 07/05/19 11:09 Dose: 4 mg Documented by: Oxycodone/Acetaminophen (Percocet 5/325) 1 tab PO Q6H PRN PRN Reason: Pain, Moderate (4-6) Sodium Chloride (Sodium Chloride Flush Syringe 10 Ml) 10 ml IV BID [facility] Last Admin: 07/05/19 01:56 Dose: 10 ml Documented by: Sodium Chloride (Sodium Chloride Flush Syringe 10 Ml) 10 ml IV PRN PRN PRN Reason: LINE FLUSH Review of Systems - Constitutional weight loss (82lbs in 6 months (felt to be appropriate for bariatric surgery)), chills, no fever, no sweats, no chronic pain - Cardiovascular no chest pain, no shortness of breath - Respiratory no cough - Gastrointestinal abdominal pain (flank and back pain), nausea, vomiting, no hematemesis, no coffee ground emesis, no BRBPR, no melena, no hematochezia, no loss of appetite, no dyspepsia/bloating - Muskuloskeletal low back pain - Integumentary wounds Exam Vital Signs Temp Pulse Resp BP Pulse Ox 97.7 F 108 H 20 130/72 100 07/04/19 16:38 07/04/19 16:38 07/04/19 16:38 07/04/19 16:38 07/04/19 16:38 - General physical appearance Positive: no distress, other (patient laying on her stomach) - Eyes Positive: normal occular movement - Respiratory Positive: normal expansion, normal respiratory effort - Cardiovascular Rhythm: regular - Abdomen Abdomen: Present: soft, surgical scars (multiple ones with loss of epithelial l navarro). Absent: distended - Integumentary other (multiple areas of loss of epithelial layer. The area of the fluid collection is very close to the skin surface. +tender. No warmth. No erythema. No induration. ) - Neurologic Neurologic: alert and oriented to time, place and person, motor strength and sensation are grossly intact - Psychiatric Psychiatric: appropriate mood/affect, intact judgment & insight, memory intact, cooperative - Additional Findings Entire trunk area is tender to the tough and swollen Results - Labs 07/04/19 17:40 07/04/19 17:40 Abnormal lab results 07/04/19 07/04/19 07/04/19 Range/Units 17:40 17:40 17:40 RBC 3.16 L (3.65-5.03) M/mm3 Hgb 9.2 L (10.1-14.3) gm/dl Hct 28.2 L (30.3-42.9) % RDW 15.8 H (13.2-15.2) % Plt Count 651 H (140-440) K/mm3 Seg Neutrophils % 77.1 H (40.0-70.0) % D-Dimer 1097.62 H (0-234) ng/mlDDU Carbon Dioxide 21 L (22-30) mmol/L Creatinine 0.5 L (0.7-1.2) mg/dL Albumin 3.1 L (3.9-5) g/dL 07/04/19 Range/Units 17:40 RBC (3.65-5.03) M/mm3 Hgb (10.1-14.3) gm/dl Hct (30.3-42.9) % RDW (13.2-15.2) % Plt Count (140-440) K/mm3 Seg Neutrophils % (40.0-70.0) % D-Dimer 1025.02 H (0-234) ng/mlDDU Carbon Dioxide (22-30) mmol/L Creatinine (0.7-1.2) mg/dL Albumin (3.9-5) g/dL Diabetes panel 07/04/19 Range/Units 17:40 Sodium 140 (137-145) mmol/L Potassium 4.2 (3.6-5.0) mmol/L Chloride 103.2 (98-107) mmol/L Carbon Dioxide 21 L (22-30) mmol/L BUN 14 (7-17) mg/dL Creatinine 0.5 L (0.7-1.2) mg/dL Glucose 96 (65-100) mg/dL Calcium 8.7 (8.4-10.2) mg/dL AST 16 (5-40) units/L ALT 8 (7-56) units/L Alkaline Phosphatase 70 (35-129) units/L Total Protein 6.8 (6.3-8.2) g/dL Albumin 3.1 L (3.9-5) g/dL Thyroid panel 07/04/19 Range/Units 19:20 TSH 1.010 (0.270-4.200) mlU/mL Calcium panel 07/04/19 Range/Units 17:40 Calcium 8.7 (8.4-10.2) mg/dL Albumin 3.1 L (3.9-5) g/dL Pituitary panel 07/04/19 07/04/19 Range/Units 17:40 19:20 Sodium 140 (137-145) mmol/L Potassium 4.2 (3.6-5.0) mmol/L Chloride 103.2 (98-107) mmol/L Carbon Dioxide 21 L (22-30) mmol/L BUN 14 (7-17) mg/dL Creatinine 0.5 L (0.7-1.2) mg/dL Glucose 96 (65-100) mg/dL Calcium 8.7 (8.4-10.2) mg/dL TSH 1.010 (0.270-4.200) mlU/mL Adrenal panel 07/04/19 Range/Units 17:40 Sodium 140 (137-145) mmol/L Potassium 4.2 (3.6-5.0) mmol/L Chloride 103.2 (98-107) mmol/L Carbon Dioxide 21 L (22-30) mmol/L BUN 14 (7-17) mg/dL Creatinine 0.5 L (0.7-1.2) mg/dL Glucose 96 (65-100) mg/dL Calcium 8.7 (8.4-10.2) mg/dL Total Bilirubin 0.20 (0.1-1.2) mg/dL AST 16 (5-40) units/L ALT 8 (7-56) units/L Alkaline Phosphatase 70 (35-129) units/L Total Protein 6.8 (6.3-8.2) g/dL Albumin 3.1 L (3.9-5) g/dL - Imaging CT scan - abdomen: report reviewed, image reviewed CT scan - pelvis: report reviewed, image reviewed Assessment and Plan - Patient Problems (1) Abdominal fluid collection Current Visit: Yes Status: Acute Plan to address problem: Pt stable. Patient is without fevers or white count. Difficult to know based on CT scan whether there truly is an abscess or not. The entire trunk is swo llen. Unable to see focal inflammatory changes around the fluid collection. Externally, there are no signs of infection such as erythema, induration, or increased warmth. I offered options of performing an incision and drainage here versus her contacting her plastic surgeon for advice and recommendations. For now, she wanted to contact her plastic surgeon first. We will follow along in her care. Her bigger concern is the nausea and vomiting and she requested to have a regular diet. Please call with questions. time=30min
--- NOTE | 2019-07-05 17:37 | Progress Note ---
Assessment and Plan Assessment and plan: 38 year old female with history of gastric bypass surgery in October of this year in [place] followed by followed by elective outpatient plastic surgery for liposuction and a procedure called butt lift N [place] done by fat transfer from her trunk, anterior abdomen, flanks and back. Patient was recently discharged on June 28 after being admitted for chest pain and abdominal pain nausea and vomiting. Patient complains of pain in the left supra gluteal region. Patient also complains of nausea vomiting and difficulty tolerating clear liquids. No fever or chills. * Currently undergoing work up by [facility]. EGD was done. She was diagnosed as having H. pylori. She was treated for that but her symptoms did not resolve but got worse and now is pending a gastric emptying study but that still has not been done. unfortunately continues to ask for opioid pain med which precludes from doing the procedure now. * Per patient advised that she is malnurished by her previous physician. Considering persistent nausea and vomiting. I will give Banana Bag (1) Postoperative abscess/ Fluid collection Current Visit: Yes Status: Acute Plan to address problem: Abx per ID Consult ID Follow cultures Surgery consult requested- Discussed with surgery, patient declines any I/D at this time, and will be contacting her plastic surgeon Anticipate that if improved by AM can be discharged on oral medications since patient has no fever (2) History of gastric bypass Current Visit: Yes Status: Acute Plan to address problem: Patient has nausea and vomiting Treat symptomatically Outpatient gastric emptying as planned when off opioids IV fluids IV Protonix (3) GERD (gastroesophageal reflux disease) Current Visit: No Status: Acute Qualifiers: Esophagitis presence: without esophagitis Qualified Code(s): K21.9 - Gastro-esophageal reflux disease without esophagitis Plan to address problem: IV Protonix for now (4) Anemia Current Visit: Yes Status: Chronic Qualifiers: Anemia type: unspecified type Qualified Code(s): D64.9 - Anemia, unspecified Plan to address problem: Anemia workup (5) Persistent vomiting Current Visit: Yes Status: Acute Plan to address problem: Symptomatic treatment IV fluids for now IV Zofran and Reglan for now GI consult if vomiting doesn't resolve (6) DVT prophylaxis Current Visit: No Status: Acute Plan to address problem: On heparin and GI prophylaxis History Interval history: Patient seen and examined, reports nausea and vomiting but still wants full diet. she discussed with surgery but at this time declines any surgical excisi onal procedure. she denies any fever, reports some improvement in facial lesion Hospitalist Physical - Physical exam Narrative exam: General appearance: Present: mild distress, well-nourished, lying on her stomach - EENT Eyes: Present: PERRL ENT: hearing intact, clear oral mucosa, erythema to the upper and lower lip with crusting lesion noted - Neck Neck: Present: supple, normal ROM - Respiratory Respiratory effort: normal Respiratory: bilateral: CTA - Cardiovascular Heart rate: 80 Rhythm: regular Heart Sounds: Present: S1 & S2. Absent: rub, click - Extremities Extremities: no ischemia, pulses intact, pulses symmetrical, truncal edema Peripheral Pulses: within normal limits - Abdominal General gastrointestinal: Present: soft, non-tender, non-distended, normal bowel sounds, other (abscess left posterior lower back-fluctuant with open ulcer which is superficial, multipple lesion in the abdomen and flank area with excouriation) Female genitourinary: Present: normal - Integumentary Integumentary: Present: multiple areas of loss of epithelial layer. The area of the fluid collection is very close to the skin surface. +tender. No warmth. No erythema. No induration. - Musculoskeletal Musculoskeletal: gait normal, strength equal bilaterally - Psychiatric Psychiatric: appropriate mood/affect, intact judgment & insight - Neurologic Neurologic: CNII-XII intact, moves all extremities - Allied Health Allied health notes reviewed: nursing, - Constitutional Vitals: Temp Pulse Resp BP Pulse Ox 98.1 F 84 16 128/55 99 07/05/19 16:54 07/05/19 16:54 07/05/19 16:54 07/05/19 16:54 07/05/19 16:54 General appearance: Present: no acute distress, well-nourished Results - Labs CBC & Chem 7: 07/04/19 17:40 07/04/19 17:40 Labs: Laboratory Last Values WBC 9.0 K/mm3 (4.5-11.0) 07/04/19 17:40 RBC 3.16 M/mm3 (3.65-5.03) L 07/04/19 17:40 Hgb 9.2 gm/dl (10.1-14.3) L 07/04/19 17:40 Hct 28.2 % (30.3-42.9) L 07/04/19 17:40 MCV 89 fl (79-97) 07/04/19 17:40 MCH 29 pg (28-32) 07/04/19 17:40 MCHC 33 % (30-34) 07/04/19 17:40 RDW 15.8 % (13.2-15.2) H 07/04/19 17:40 Plt Count 651 K/mm3 (140-440) H 07/04/19 17:40 Lymph % (Auto) 16.7 % (13.4-35.0) 07/04/19 17:40 [place] % (Auto) 2.8 % (0.0-7.3) 07/04/19 17:40 Eos % (Auto) 2.3 % (0.0-4.3) 07/04/19 17:40 Baso % (Auto) 1.1 % (0.0-1.8) 07/04/19 17:40 Lymph # 1.5 K/mm3 (1.2-5.4) 07/04/19 17:40 [place] # 0.3 K/mm3 (0.0-0.8) 07/04/19 17:40 Eos # 0.2 K/mm3 (0.0-0.4) 07/04/19 17:40 Baso # 0.1 K/mm3 (0.0-0.1) 07/04/19 17:40 Seg Neutrophils % 77.1 % (40.0-70.0) H 07/04/19 17:40 Seg Neutrophils # 6.9 K/mm3 (1.8-7.7) 07/04/19 17:40 PT 13.2 Sec. (12.2-14.9) 07/04/19 17:40 INR 1.01 (0.87-1.13) 07/04/19 17:40 APTT 29.2 Sec. (24.2-36.6) 07/04/19 17:40 D-Dimer 1025.02 ng/mlDDU (0-234) H 07/04/19 17:40 D-Dimer 1097.62 ng/mlDDU (0-234) H 07/04/19 17:40 Sodium 140 mmol/L (137-145) 07/04/19 17:40 Potassium 4.2 mmol/L (3.6-5.0) 07/04/19 17:40 Chloride 103.2 mmol/L (98-107) 07/04/19 17:40 Carbon Dioxide 21 mmol/L (22-30) L 07/04/19 17:40 Anion Gap 20 mmol/L 07/04/19 17:40 BUN 14 mg/dL (7-17) 07/04/19 17:40 Creatinine 0.5 mg/dL (0.7-1.2) L 07/04/19 17:40 Estimated GFR > 60 ml/min 07/04/19 17:40 BUN/Creatinine Ratio 28 % 07/04/19 17:40 Glucose 96 mg/dL (65-100) 07/04/19 17:40 Calcium 8.7 mg/dL (8.4-10.2) 07/04/19 17:40 Magnesium 2.00 mg/dL (1.7-2.3) 07/04/19 19:07 Total Bilirubin 0.20 mg/dL (0.1-1.2) 07/04/19 17:40 AST 16 units/L (5-40) 07/04/19 17:40 ALT 8 units/L (7-56) 07/04/19 17:40 Alkaline Phosphatase 70 units/L (35-129) 07/04/19 17:40 Total Creatine Kinase 33 units/L (30-135) 07/04/19 19:07 Total Protein 6.8 g/dL (6.3-8.2) 07/04/19 17:40 Albumin 3.1 g/dL (3.9-5) L 07/04/19 17:40 Albumin/Globulin Ratio 0.8 % 07/04/19 17:40 TSH 1.010 mlU/mL (0.270-4.200) 07/04/19 19:20 HCG, Qual Negative (Negative) 07/04/19 17:40 Urine Color Yellow (Yellow) 07/04/19 19:45 Urine Turbidity Clear (Clear) 07/04/19 19:45 Urine pH 7.0 (5.0-7.0) 07/04/19 19:45 Ur Specific [place] 1.021 (1.003-1.030) 07/04/19 19:45 Urine Protein <15 mg/dl mg/dL (Negative) 07/04/19 19:45 Urine Glucose (UA) Neg mg/dL (Negative) 07/04/19 19:45 Urine Ketones Neg mg/dL (Negative) 07/04/19 19:45 Urine Blood Neg (Negative) 07/04/19 19:45 Urine Nitrite Neg (Negative) 07/04/19 19:45 Urine Bilirubin Neg (Negative) 07/04/19 19:45 Urine Urobilinogen 2.0 mg/dL (<2.0) 07/04/19 19:45 Ur Leukocyte Esterase Neg (Negative) 07/04/19 19:45 Urine WBC (Auto) < 1.0 /HPF (0.0-6.0) 07/04/19 19:45 Urine RBC (Auto) 2.0 /HPF (0.0-6.0) 07/04/19 19:45 U Epithel Cells (Auto) 4.0 /HPF (0-13.0) 07/04/19 19:45 Urine Mucus Few /HPF 07/04/19 19:45 Urine Opiates Screen Presumptive negative 07/04/19 19:30 Urine Methadone Screen Presumptive negative 07/04/19 19:30 Ur Barbiturates Screen Presumptive negative 07/04/19 19:30 Ur Phencyclidine Scrn Presumptive negative 07/04/19 19:30 Ur Amphetamines Screen Presumptive negative 07/04/19 19:30 U Benzodiazepines Scrn Presumptive negative 07/04/19 19:30 Urine Cocaine Screen Presumptive negative 07/04/19 19:30 U Marijuana (THC) Screen Presumptive negative 07/04/19 19:30 Drugs of Abuse Note Disclamer 07/04/19 19:30 - Imaging and Cardiology CT scan - abdomen: image reviewed Active Medications - Current Medications Current Medications: Generic Name Dose Route Start Last Admin Trade Name Freq PRN Reason Stop Dose Admin Acetaminophen 650 mg 07/05/19 00:52 Tylenol PO Q4H PRN Pain MILD(1-3)/Fever >100.5/NATARAJAN Heparin Sodium (Porcine) 5,000 unit 07/05/19 01:00 07/05/19 11:33 Heparin SUB-Q 5,000 unit Q12HR MARQUITA Administration Hydromorphone HCl 1 mg 07/05/19 00:52 07/05/19 15:12 Dilaudid IV 1 mg Q3H PRN Administration Pain , Severe (7-10) Levofloxacin/Dextrose 750 mg in 150 mls @ 100 mls/hr 07/05/19 10:00 07/05/19 11:13 Levaquin 750mg/150ml IV 100 mls/hr Q24HR MARQUITA Administration Protocol Folic Acid 1 mg/ Multivitamins 1,000 mls @ 125 mls/hr 07/05/19 11:30 /Minerals 10 ml/ Thiamine HCl IV 100 mg/ Sodium Chloride .BY DURATION [facility] Sodium Chloride 1,000 mls @ 125 mls/hr 07/05/19 11:30 Nacl 0.9% 1000 Ml IV .BY DURATION [facility] Vancomycin HCl 1 gm in 250 mls @ 125 mls/hr 07/05/19 16:00 Vancomycin/Ns 1 Gm/250 Ml IV Q8H [facility] Metoclopramide HCl 10 mg 07/05/19 00:52 07/05/19 15:13 Reglan IV 10 mg Q6H PRN Administration Nausea And Vomiting Ondansetron HCl 4 mg 07/05/19 00:52 07/05/19 11:09 Zofran IV 4 mg Q3H PRN Administration Nausea And Vomiting Oxycodone/Acetaminophen 1 tab 07/05/19 00:52 Percocet 5/325 PO Q6H PRN Pain, Moderate (4-6) Sodium Chloride 10 ml 07/05/19 01:00 07/05/19 01:56 Sodium Chloride Flush Syringe 10 Ml IV 10 ml BID MARQUITA Administration Sodium Chloride 10 ml 07/05/19 00:52 Sodium Chloride Flush Syringe 10 Ml IV PRN PRN LINE FLUSH
[2019-07-05] MEDS: VANCOMYCIN/NS 1 GM/250 ML 1 GM/250 ML BAG IV SCH (21:26)
[2019-07-05] MEDS: oxyCODONE /ACETAMINOPHEN 5-325MG TAB PO PRN (23:17)
[2019-07-06] MEDS: ONDANSETRON 4 MG/2 ML INJ IV PRN ×2 (00:32→08:56)
[2019-07-06] MEDS: METOCLOPRAMIDE 10 MG/2 ML INJ IV PRN ×3 (00:40→21:23)
[2019-07-06 05:08] LABS: Hematocrit 23.6 % (30.3-42.9); Hemoglobin 7.7 gm/dl (10.1-14.3); Mean Corpuscular HGB Conc 33 % (30-34); Mean Corpuscular Volume 89 fl (79-97); Platelet Count 540 K/mm3 (140-440); Red Blood Count 2.66 M/mm3 (3.65-5.03); Red Cell Distribution Width 15.3 % (13.2-15.2)
[2019-07-06 05:30] LABS: BUN/Creatinine Ratio 20; Blood Urea Nitrogen 8 mg/dL (7-17); Calcium 7.7 mg/dL (8.4-10.2); Hemolysis Index 6
[2019-07-06] MEDS ORDERED: SODIUM CHLORIDE 0.9% 1000 ML 1,000 ML ONE (06:10)
[2019-07-06] MEDS: VANCOMYCIN/NS 1 GM/250 ML 1 GM/250 ML BAG IV SCH ×3 (06:20→16:50)
[2019-07-06] MEDS: 1: FOLIC ACID 1 MG, MULTIPLE VITAMIN INJ, ADULT 10 ML, THIAMINE 100 MG in SODIUM CHLORID IV SCH ×3 (06:20→17:05)
[2019-07-06] MEDS: HYDROmorphone 1 MG/1 ML INJ IV PRN ×6 (06:21→21:23)
[2019-07-06] MEDS ORDERED: FUROSEMIDE 40 MG/4 ML INJ IV ONE ×2 (07:30→16:00)
--- NOTE | 2019-07-06 10:44 | Progress Note ---
Assessment and Plan - Patient Problems (1) Abdominal fluid collection Current Visit: Yes Status: Acute Plan to address problem: Pt stable. Patient is without fevers or white count. Difficult to know based on CT scan whether there truly is an abscess or not. The entire trunk is swollen. Unable to see focal inflammatory changes around the fluid collection. Externally, there are no signs of infection such as erythema, induration, or increased warmth. Pt feels as though it is getting worse and her surgeon has recommended that we proceed with I&D. Patient now ready to have I&D done. Will make arrangement for I&D in OR today. Procedure, risks, benefits discussed. Consent obtained. Please call with questions. time=10min Subjective Date of service: 07/06/19 Patient Reports: Positive: still having pain, nausea, vomiting, other (low back pain area seems larger today. Her plastic surgeon recommended I&D) Objective Vital Signs - 12hr 07/06/19 07/06/19 00:47 06:16 Temperature 98.3 F Pulse Rate 115 H 76 Respiratory 18 Rate Blood Pressure 128/83 124/77 O2 Sat by Pulse 98 100 Oximetry - General physical appearance no distress, moderate pain - Eyes normal occular movement - Respiratory normal expansion, normal respiratory effort - Integumentary other (tender in area of low back fluid collection. entire back/flanks is swollen and tender. No erythema. No increased warmth.) - Psychiatric oriented to time, oriented to person, oriented to place, speech is normal, memory intact - Labs 07/06/19 04:47 07/06/19 04:47 Diabetes panel 07/06/19 Range/Units 04:47 Sodium 139 (137-145) mmol/L Potassium 4.0 (3.6-5.0) mmol/L Chloride 107.3 H (98-107) mmol/L Carbon Dioxide 25 (22-30) mmol/L BUN 8 (7-17) mg/dL Creatinine 0.4 L (0.7-1.2) mg/dL Glucose 93 (65-100) mg/dL Calcium 7.7 L (8.4-10.2) mg/dL Calcium panel 07/06/19 Range/Units 04:47 Calcium 7.7 L (8.4-10.2) mg/dL Pituitary panel 07/06/19 Range/Units 04:47 Sodium 139 (137-145) mmol/L Potassium 4.0 (3.6-5.0) mmol/L Chloride 107.3 H (98-107) mmol/L Carbon Dioxide 25 (22-30) mmol/L BUN 8 (7-17) mg/dL Creatinine 0.4 L (0.7-1.2) mg/dL Glucose 93 (65-100) mg/dL Calcium 7.7 L (8.4-10.2) mg/dL Adrenal panel 07/06/19 Range/Units 04:47 Sodium 139 (137-145) mmol/L Potassium 4.0 (3.6-5.0) mmol/L Chloride 107.3 H (98-107) mmol/L Carbon Dioxide 25 (22-30) mmol/L BUN 8 (7-17) mg/dL Creatinine 0.4 L (0.7-1.2) mg/dL Glucose 93 (65-100) mg/dL Calcium 7.7 L (8.4-10.2) mg/dL
--- NOTE | 2019-07-06 15:04 | Progress Note ---
Assessment and Plan Assessment and plan: 38 year old female with history of gastric bypass surgery in October of this year in [place] followed by followed by elective outpatient plastic surgery for liposuction and a procedure called butt lift N [place] done by fat transfer from her trunk, anterior abdomen, flanks and back. Patient was recently discharged on June 28 after being admitted for chest pain and abdominal pain nausea and vomiting. Patient complains of pain in the left supra gluteal region. Patient also complains of nausea vomiting and difficulty tolerating clear liquids. No fever or chills. * Currently undergoing work up by [facility]. EGD was done. She was diagnosed as having H. pylori. She was treated for that but her symptoms did not resolve but got worse and now is pending a gastric emptying study but that still has not been done. unfortunately continues to ask for opioid pain med which precludes from doing the procedure now. * Per patient advised that she is malnourished by her previous physician. Considering persistent nausea and vomiting. I will give Banana Bag (1) Postoperative abscess/ Fluid collection Current Visit: Yes Status: Acute Plan to address problem: Abx per ID Consult ID Input noted Follow cultures Surgery consult requested- Discussed with surgery, patient declines any I/D at this time, and will be contacting her plastic surgeon Plan for I/D today, still with back pain and sensation of swelling Give lasix x 2. as th entire trunk is swollen also will give some flexril (2) History of gastric bypass Current Visit: Yes Status: Acute Plan to address problem: Patient has nausea and vomiting Treat symptomatically Outpatient gastric emptying as planned when off opioids IV fluids- hold fluids IV Protonix (3) GERD (gastroesophageal reflux disease) Current Visit: No Status: Acute Qualifiers: Esophagitis presence: without esophagitis Qualified Code(s): K21.9 - Gastro-esophageal reflux disease without esophagitis Plan to address problem: IV Protonix for now (4) Anemia Current Visit: Yes Status: Chronic Qualifiers: Anemia type: unspecified type Qualified Code(s): D64.9 - Anemia, unspecified Plan to address problem: Anemia workup ongoing Patient is being seen by GI outpaitent, she may benefit from re-endoscopy outpatient continue to monitor H/H and transfuse if below 7 (5) Persistent vomiting Current Visit: Yes Status: Acute Plan to address problem: Symptomatic treatment IV fluids for now IV Zofran and Reglan for now GI consult if vomiting doesn't resolve (6) DVT prophylaxis Current Visit: No Status: Acute Plan to address problem: On heparin and GI prophylaxis History Interval history: Patient seen and examined, still complains of generalized back pain Hospitalist Physical - Physical exam Narrative exam: General appearance: Present: mild distress, well-nourished, lying on her stomach - EENT Eyes: Present: PERRL ENT: hearing intact, clear oral mucosa, erythema to the upper and lower lip with crusting lesion noted - Neck Neck: Present: supple, normal ROM - Respiratory Respiratory effort: normal Respiratory: bilateral: CTA - Cardiovascular Heart rate: 80 Rhythm: regular Heart Sounds: Present: S1 & S2. Absent: rub, click - Extremities Extremities: no ischemia, pulses intact, pulses symmetrical, truncal edema Peripheral Pulses: within normal limits - Abdominal General gastrointestinal: Present: soft, non-tender, non-distended, normal bowel sounds, other (abscess left posterior lower back-fluctuate with open ulcer which is superficial, multiple lesion in the abdomen and flank area with excoriation) swollen trunck Female genitourinary: Present: normal - Integumentary Integumentary: Present: multiple areas of loss of epithelial layer. The area of the fluid collection is very close to the skin surface. +tender. No warmth. No erythema. No induration. - Musculoskeletal Musculoskeletal: gait normal, strength equal bilaterally - Psychiatric Psychiatric: appropriate mood/affect, intact judgment & insight - Neurologic Neurologic: CNII-XII intact, moves all extremities - Allied Health Allied health notes reviewed: nursing, - Constitutional Vitals: Temp Pulse Resp BP Pulse Ox 99.1 F 96 H 20 125/63 100 07/06/19 12:00 07/06/19 12:00 07/06/19 12:00 07/06/19 12:00 07/06/19 12:00 General appearance: Present: no acute distress, well-nourished Results - Labs CBC & Chem 7: 07/06/19 04:47 07/06/19 04:47 Labs: Laboratory Last Values WBC 7.4 K/mm3 (4.5-11.0) 07/06/19 04:47 RBC 2.66 M/mm3 (3.65-5.03) L 07/06/19 04:47 Hgb 7.7 gm/dl (10.1-14.3) L 07/06/19 04:47 Hct 23.6 % (30.3-42.9) L 07/06/19 04:47 MCV 89 fl (79-97) 07/06/19 04:47 MCH 29 pg (28-32) 07/06/19 04:47 MCHC 33 % (30-34) 07/06/19 04:47 RDW 15.3 % (13.2-15.2) H 07/06/19 04:47 Plt Count 540 K/mm3 (140-440) H 07/06/19 04:47 Lymph % (Auto) 16.7 % (13.4-35.0) 07/04/19 17:40 [place] % (Auto) 2.8 % (0.0-7.3) 07/04/19 17:40 Eos % (Auto) 2.3 % (0.0-4.3) 07/04/19 17:40 Baso % (Auto) 1.1 % (0.0-1.8) 07/04/19 17:40 Lymph # 1.5 K/mm3 (1.2-5.4) 07/04/19 17:40 [place] # 0.3 K/mm3 (0.0-0.8) 07/04/19 17:40 Eos # 0.2 K/mm3 (0.0-0.4) 07/04/19 17:40 Baso # 0.1 K/mm3 (0.0-0.1) 07/04/19 17:40 Seg Neutrophils % 77.1 % (40.0-70.0) H 07/04/19 17:40 Seg Neutrophils # 6.9 K/mm3 (1.8-7.7) 07/04/19 17:40 PT 13.2 Sec. (12.2-14.9) 07/04/19 17:40 INR 1.01 (0.87-1.13) 07/04/19 17:40 APTT 29.2 Sec. (24.2-36.6) 07/04/19 17:40 D-Dimer 1025.02 ng/mlDDU (0-234) H 07/04/19 17:40 D-Dimer 1097.62 ng/mlDDU (0-234) H 07/04/19 17:40 Sodium 139 mmol/L (137-145) 07/06/19 04:47 Potassium 4.0 mmol/L (3.6-5.0) 07/06/19 04:47 Chloride 107.3 mmol/L (98-107) H 07/06/19 04:47 Carbon Dioxide 25 mmol/L (22-30) 07/06/19 04:47 Anion Gap 11 mmol/L 07/06/19 04:47 BUN 8 mg/dL (7-17) 07/06/19 04:47 Creatinine 0.4 mg/dL (0.7-1.2) L 07/06/19 04:47 Estimated GFR > 60 ml/min 07/06/19 04:47 BUN/Creatinine Ratio 20 % 07/06/19 04:47 Glucose 93 mg/dL (65-100) 07/06/19 04:47 Calcium 7.7 mg/dL (8.4-10.2) L 07/06/19 04:47 Magnesium 2.00 mg/dL (1.7-2.3) 07/04/19 19:07 Total Bilirubin 0.20 mg/dL (0.1-1.2) 07/04/19 17:40 AST 16 units/L (5-40) 07/04/19 17:40 ALT 8 units/L (7-56) 07/04/19 17:40 Alkaline Phosphatase 70 units/L (35-129) 07/04/19 17:40 Total Creatine Kinase 33 units/L (30-135) 07/04/19 19:07 Total Protein 6.8 g/dL (6.3-8.2) 07/04/19 17:40 Albumin 3.1 g/dL (3.9-5) L 07/04/19 17:40 Albumin/Globulin Ratio 0.8 % 07/04/19 17:40 TSH 1.010 mlU/mL (0.270-4.200) 07/04/19 19:20 HCG, Qual Negative (Negative) 07/04/19 17:40 Urine Color Yellow (Yellow) 07/04/19 19:45 Urine Turbidity Clear (Clear) 07/04/19 19:45 Urine pH 7.0 (5.0-7.0) 07/04/19 19:45 Ur Specific [place] 1.021 (1.003-1.030) 07/04/19 19:45 Urine Protein <15 mg/dl mg/dL (Negative) 07/04/19 19:45 Urine Glucose (UA) Neg mg/dL (Negative) 07/04/19 19:45 Urine Ketones Neg mg/dL (Negative) 07/04/19 19:45 Urine Blood Neg (Negative) 07/04/19 19:45 Urine Nitrite Neg (Negative) 07/04/19 19:45 Urine Bilirubin Neg (Negative) 07/04/19 19:45 Urine Urobilinogen 2.0 mg/dL (<2.0) 07/04/19 19:45 Ur Leukocyte Esterase Neg (Negative) 07/04/19 19:45 Urine WBC (Auto) < 1.0 /HPF (0.0-6.0) 07/04/19 19:45 Urine RBC (Auto) 2.0 /HPF (0.0-6.0) 07/04/19 19:45 U Epithel Cells (Auto) 4.0 /HPF (0-13.0) 07/04/19 19:45 Urine Mucus Few /HPF 07/04/19 19:45 Urine Opiates Screen Presumptive negative 07/04/19 19:30 Urine Methadone Screen Presumptive negative 07/04/19 19:30 Ur Barbiturates Screen Presumptive negative 07/04/19 19:30 Ur Phencyclidine Scrn Presumptive negative 07/04/19 19:30 Ur Amphetamines Screen Presumptive negative 07/04/19 19:30 U Benzodiazepines Scrn Presumptive negative 07/04/19 19:30 Urine Cocaine Screen Presumptive negative 07/04/19 19:30 U Marijuana (THC) Screen Presumptive negative 07/04/19 19:30 Drugs of Abuse Note Disclamer 07/04/19 19:30 Active Medications - Current Medications Current Medications: Generic Name Dose Route Start Last Admin Trade Name Freq PRN Reason Stop Dose Admin Acetaminophen 650 mg 07/05/19 00:52 Tylenol PO Q4H PRN Pain MILD(1-3)/Fever >100.5/NATARAJAN Furosemide 40 mg 07/06/19 16:00 Lasix IV 07/06/19 16:01 ONCE ONE Hydromorphone HCl 1 mg 07/05/19 00:52 07/06/19 11:15 Dilaudid IV 1 mg Q3H PRN Administration Pain , Severe (7-10) Levofloxacin/Dextrose 750 mg in 150 mls @ 100 mls/hr 07/05/19 10:00 07/06/19 11:10 Levaquin 750mg/150ml IV 100 mls/hr Q24HR MARQUITA Administration Protocol Folic Acid 1 mg/ Multivitamins 1,000 mls @ 125 mls/hr 07/05/19 11:30 07/05/19 15:00 /Minerals 10 ml/ Thiamine HCl IV 125 mls/hr 100 mg/ Sodium Chloride .BY DURATION MARQUITA Administration Sodium Chloride 1,000 mls @ 125 mls/hr 07/05/19 11:30 07/06/19 06:57 Nacl 0.9% 1000 Ml IV Not Given .BY DURATION MARQUITA Vancomycin HCl 1 gm in 250 mls @ 125 mls/hr 07/05/19 16:00 07/06/19 09:13 Vancomycin/Ns 1 Gm/250 Ml IV 125 mls/hr Q8H MARQUITA Administration Metoclopramide HCl 10 mg 07/05/19 00:52 07/06/19 12:15 Reglan IV 10 mg Q6H PRN Administration Nausea And Vomiting Ondansetron HCl 4 mg 07/05/19 00:52 07/06/19 08:56 Zofran IV 4 mg Q3H PRN Administration Nausea And Vomiting Oxycodone/Acetaminophen 1 tab 07/05/19 00:52 07/05/19 23:17 Percocet 5/325 PO 1 tab Q6H PRN Administration Pain, Moderate (4-6) Sodium Chloride 10 ml 07/05/19 01:00 07/06/19 11:11 Sodium Chloride Flush Syringe 10 Ml IV 10 ml BID MARQUITA Administration Sodium Chloride 10 ml 07/05/19 00:52 07/06/19 06:21 Sodium Chloride Flush Syringe 10 Ml IV 10 ml PRN PRN Administration LINE FLUSH
--- NOTE | 2019-07-06 15:39 | Anesthesia Consultation ---
Anesthesia Consult and Med Hx Date of service: 07/06/19 - Airway Anesthetic Teeth Evaluation: Good ROM Head & Neck: Adequate Mental/Hyoid Distance: Adequate Mallampati Class: Class I Intubation Access Assessment: Good - Pulmonary Exam CTA: Yes - Cardiac Exam Cardiac Exam: RRR - Pre-Operative Health Status ASA Pre-Surgery Classification: ASA2, Emergency Proposed Anesthetic Plan: MAC - Pulmonary Hx Smoking: No Hx Asthma: Yes (childhood) Hx Respiratory Symptoms: No - Cardiovascular System Hx Hypertension: No Hx Heart Attack/AMI: No Hx Percutaneous Transluminal Coronary Angioplasty (PTCA): No - Central Nervous System CVA: No - Gastrointestinal Hx Gastroesophageal Reflux Disease: Yes - Endocrine Hx Renal Disease: No Hx Liver Disease: No Hx Insulin Dependent Diabetes: No Hx Non-Insulin Dependent Diabetes: No Hx Thyroid Disease: No - Hematic Hx Anemia: Yes - Other Systems Hx Obesity: Yes (BMI 40; s/p gastric bypass surgery this year)
--- NOTE | 2019-07-06 15:39 | Anesthesia Day of Surgery ---
Anesthesia Day of Surgery - Day of Surgery Patient Examined: Yes Patient H&P Reviewed: Yes Patient is NPO: Yes
[2019-07-06] MEDS ORDERED: MIDAZOLAM 2 MG/2 ML INJ ONE (18:00)
[2019-07-06] MEDS ORDERED: fentaNYL 100 MCG/2 ML INJ ONE (18:00)
[2019-07-06] MEDS ORDERED: PROPOFOL 200 MG/20 ML VIAL IV ONE (18:00)
[2019-07-06] MEDS ORDERED: LIDOCAINE MPF (2%) 20 MG/1 ML VIAL 5 ML ONE (18:00)
[2019-07-06] MEDS ORDERED: SODIUM CHLORIDE P/F VIAL 10 ML 10 ML ONE (18:47)
[2019-07-06] MEDS ORDERED: LIDOCAINE (1%) 10 MG/1 ML VIAL 20 ML MDV ONE (18:47)
[2019-07-06] MEDS ORDERED: BUPIVACAINE-EPINEPHRINE/PF 0.5%-1:200,000 (30 ML) VIAL INFILTRATI ONE (18:47)
[2019-07-06] MEDS ORDERED: ONDANSETRON 4 MG/2 ML INJ ONE (18:55)
[2019-07-06] MEDS ORDERED: LIDOCAINE (1%) 10 MG/1 ML VIAL 20 ML MDV INFILTRATI ONE (18:58)
[2019-07-06] MEDS ORDERED: BUPIVACAINE-EPINEPHRINE/PF 0.5%-1:200,000 (10 ML) VIAL INFILTRATI ONE (18:58)
--- NOTE | 2019-07-06 19:26 | Post Operative Note ---
Date of procedure: 07/06/19 (dictation:[id number]) Pre-op diagnosis: left lower back abscess Post-op diagnosis: other (left lower back seroma) Findings: seroma collection only. No purulent material Procedure: Aspiration of lower back fluid collection Anesthesia: MAC Surgeon: ANAM PAINTING Estimated blood loss: none Pathology: list (fluid culture) Specimen disposition: to lab Condition: stable Disposition: PACU
--- NOTE | 2019-07-06 19:43 | Operative Report ---
PREOPERATIVE DIAGNOSIS: Left lower back abscess. POSTOPERATIVE DIAGNOSIS: Left lower back seroma. PROCEDURE: Aspiration of left lower back fluid collection. ATTENDING PHYSICIAN: Agustin Arredondo MD ANESTHESIA: Local MAC. ESTIMATED BLOOD LOSS: None. FINDINGS: Approximately 30 mL of serous fluid in left lower back fluid collection. No evidence of any purulent material. SPECIMENS: Fluid sent for culture. DRAINS: None. DISPOSITION: Stable, transferred to Recovery Room. INDICATIONS: This is a 38-year-old female who recently had liposuction done at an outside hospital. The patient presented with complaints of significant truncal pain. CT scan showed fluid collection. Concern was for abscess. The patient talked to her plastic surgeon, who also recommended incision and drainage. Procedure, risks, benefits were explained to the patient. Risks include but were not limited to infection, bleeding, pain, injury to surrounding structures, possible need for further procedures in the future. The patient understood and consented. OPERATIVE NOTE: The patient was brought to the operating room and placed on the table in supine position. After sedation was established, the patient was placed in a prone position. Pressure points were padded. She was awake, but sedated. Sterile prep and drape was done. The patient was already on antibiotics. SCDs were in place. As I was not convinced that the patient had an abscess based on her external physical findings normal, normal white count, and no fevers, I decided to try an aspiration first. 1% lidocaine and 0.5% Marcaine were used to anesthetize a small area in the center of the fluid collection. An 18-gauge Angiocath needle was used to aspirate the fluid in the pocket, serous fluid returned. There was no purulent material. There was no thickness to the fluid. There was nothing to suggest any other component other than a seroma fluid collection. The entire cavity was aspirated until dry and then angiocatheter was removed. Skin was cleaned and dried. Pressure dressing was placed. The patient tolerated the procedure well. There were no complications. All counts were correct at the end of the case. JOB# [id number] CHERELLE/SUSHANT ALDANA
[2019-07-06] MEDS ORDERED: ONDANSETRON 4 MG/2 ML INJ IV ONE (20:00)
--- NOTE | 2019-07-06 20:33 | Post Anesthesia Evaluation ---
- Post Anesthesia Evaluation Patient Participated: Yes Airway Patent: Yes Stable Respiratory Function: Yes Nausea/Vomiting: No Temp > 96.8F: Yes Pain Manageable: Yes Adequeate Hydration: Yes Anesthesia Complications: No
[2019-07-07] MEDS: VANCOMYCIN/NS 1 GM/250 ML 1 GM/250 ML BAG IV SCH ×2 (02:18→09:48)
[2019-07-07] MEDS: 1: FOLIC ACID 1 MG, MULTIPLE VITAMIN INJ, ADULT 10 ML, THIAMINE 100 MG in SODIUM CHLORID IV SCH ×2 (02:56→04:20)
[2019-07-07] MEDS: HYDROmorphone 1 MG/1 ML INJ IV PRN ×2 (03:20→11:03)
[2019-07-07] MEDS ORDERED: SODIUM CHLORIDE 0.9% 1000 ML 1,000 ML IV SCH (05:00)
[2019-07-07 06:12] VITALS: BP 121/77
[2019-07-07 07:49] LABS: Hematocrit 25.7 % (30.3-42.9); Hemoglobin 8.3 gm/dl (10.1-14.3); Mean Corpuscular HGB Conc 32 % (30-34); Mean Corpuscular Volume 88 fl (79-97); Platelet Count 589 K/mm3 (140-440); Red Blood Count 2.91 M/mm3 (3.65-5.03); Red Cell Distribution Width 15.4 % (13.2-15.2)
[2019-07-07 08:08] LABS: BUN/Creatinine Ratio 16; Blood Urea Nitrogen 8 mg/dL (7-17); Calcium 8.1 mg/dL (8.4-10.2); Hemolysis Index 14
--- NOTE | 2019-07-07 09:32 | Progress Note ---
Assessment and Plan Cultures None obtained Assessment: 38 yo F PMHx obesity, gastric sleeve, recent liposuction with buttocks fat transformation surgery admitted with abscess of the surgical area. 1. Surgical site abscess - with plastic surgery need to consider common causes of abscesses (i.e., MRSA) as well as uncommon causes (AFB; rapid growers). Would start vancomycin at this time. Recommend obtaining standard cultures from debridement as well as AFB cultures. Can tailor antibiotics pending culture results. s/p drainage with no purulence seen, seroma only. 2. Nausea/vomiting - ?2/2 gastric sleeve surgery 3. Penicillin allergy Recs: - start vancomycin with PK dosing, goal trough 15-20. - continue levofloxacin 750mg q24h - Assuming seroma and no purulence seen during the surgery; ok to discharge without antibiotics. Dr. Chen will be taking over tomorrow. Thank you for the consult, we will continue to follow. [facility] ([facility]) M: [phone] O: [phone] F: [phone] Subjective Date of service: 07/07/19 Interval history: Afebrile, s/p drainage of seroma. Normal white count. Objective - Exam Narrative Exam: General Normal appearance, well developed, no acute distress Eyes - PERRLA, EOM intact ENT - Moist mucous membranes, no lymphadenopathy Neck - No noticeable or palpable swelling, redness or rash around throat or on face Lymph Nodes - No lymphadenopathy Cardiovascular - RRR no m/r/g, no JVD, no carotid bruits Lungs - Clear to auscultation, no use of accessory muscles, no crackles or wheezes. Skin - No rashes, skin warm and dry, no erythematous areas Abdomen - Normal bowel sounds, abdomen soft and nontender Extremities - No edema, cyanosis or clubbing Musculoskeletal - 5/5 strength, normal range of motion, no swollen or erythemat ous joints. Neurological Alert and oriented x 3, CN 2-12 grossly intact. - Constitutional Vitals: Vital Signs Temp Pulse Resp BP Pulse Ox 98.2 F 92 H 18 121/77 97 07/07/19 05:59 07/07/19 05:59 07/07/19 05:59 07/07/19 05:59 07/07/19 05:59 Temperature -Last 24 Hours Temperature 98.2 F Temperature 98.7 F Temperature 97.5 F Temperature 97.9 F Temperature 99.1 F - Labs CBC & Chem 7: 07/07/19 07:28 07/07/19 07:28 Labs: Abnormal lab results 07/07/19 07/07/19 Range/Units 07:28 07:28 RBC 2.91 L (3.65-5.03) M/mm3 Hgb 8.3 L (10.1-14.3) gm/dl Hct 25.7 L (30.3-42.9) % RDW 15.4 H (13.2-15.2) % Plt Count 589 H (140-440) K/mm3 Creatinine 0.5 L (0.7-1.2) mg/dL Calcium 8.1 L (8.4-10.2) mg/dL
--- NOTE | 2019-07-07 12:09 | Discharge Summary ---
Providers - Providers Date of Admission: 07/04/19 23:08 Attending physician: JEFF MUELLER MD 07/04/19 21:18 Consult to Physician [CONS] Urgent Comment: Dr. Kebede spoke with Dr. Arredondo @ [phone] Consulting Provider: ANAM ARREDONDO Physician Instructions: Reason For Exam: post surgiclal wound 07/05/19 09:27 Consult to Physician [CONS] Routine Comment: Consulting Provider: CLAUDIA HUNTER Physician Instructions: Reason For Exam: abscess. gluteal, flank Consult to Wound/ET Nurse [CONS] Routine Reason For Exam: wound eval Primary care physician: BOILER RIVETER Hospitalization Reason for admission: abdominal pain Condition: Good Hospital course: 38 year old female with history of gastric bypass surgery in October of this year in [place] followed by followed by elective outpatient plastic surgery for liposuction and a procedure called butt lift [place] done by fat transfer from her trunk, anterior abdomen, flanks and back. Patient was recently discharged on June 28 after being admitted for chest pain and abdominal pain nausea and vomiting. Patient complains of pain in the left supra gluteal region. Patient also complains of nausea vomiting and difficulty tolerating clear liquids. No fever or chills. * Currently undergoing work up by [facility]. EGD was done. She was diagnosed as having H. pylori. She was treated for that but her symptoms did not resolve but got worse and now is pending a gastric emptying study but that still has not been done. unfortunately continues to ask for opioid pain med which precludes from doing the procedure now. * Per patient advised that she is malnourished by her previous physician. Considering persistent nausea and vomiting. * patient underwent I/D with surgery noted to have seroma * she had some improvement with lasix * Plan to follow with her Plastic surgeon outpatient * Per ID no abx indicated on discharge (1) Postoperative abscess/ Fluid collection (2) History of gastric bypass (3) GERD (gastroesophageal reflux disease) (4) Anemia (5) Persistent vomiting (6) Morbid Obesity Disposition: TO HOME OR SELFCARE Time spent for discharge: 35 mins Core Measure Documentation - Palliative Care Palliative Care/ Comfort Measures: Not Applicable - Core Measures Any of the following diagnoses?: none Exam - Physical Exam Narrative exam: General appearance: Present: mild distress, well-nourished, lying on her stomach - EENT Eyes: Present: PERRL ENT: hearing intact, clear oral mucosa, erythema to the upper and lower lip with crusting lesion noted - Neck Neck: Present: supple, normal ROM - Respiratory Respiratory effort: normal Respiratory: bilateral: CTA - Cardiovascular Heart rate: 80 Rhythm: regular Heart Sounds: Present: S1 & S2. Absent: rub, click - Extremities Extremities: no ischemia, pulses intact, pulses symmetrical, truncal edema Peripheral Pulses: within normal limits - Abdominal General gastrointestinal: Present: soft, non-tender, non-distended, normal bowel sounds, other (abscess left posterior lower back-fluctuate with open ulcer which is superficial, multiple lesion in the abdomen and flank area with excoriation) swollen trunck Female genitourinary: Present: normal - Integumentary Integumentary: Present: multiple areas of loss of epithelial layer. The area of the fluid collection is very close to the skin surface. +tender. No warmth. No erythema. No induration. - Musculoskeletal Musculoskeletal: gait normal, strength equal bilaterally - Psychiatric Psychiatric: appropriate mood/affect, intact judgment & insight - Neurologic Neurologic: CNII-XII intact, moves all extremities - Allied Health Allied health notes reviewed: nursing, - Constitutional Vitals: Temp Pulse Resp BP Pulse Ox 98.2 F 92 H 18 121/77 97 07/07/19 05:59 07/07/19 05:59 07/07/19 05:59 07/07/19 05:59 07/07/19 05:59 Plan Activity: advance as tolerated, fall precautions Diet: low fat, low salt Special Instructions: record daily BP diary Additional Instructions: follow with plastic surgeon and GI Follow up with: FORTINO TAO MD [Primary Care Provider] - 3-5 Days MIRA BHATIA MD [Staff Physician] - 7 Days Prescriptions: oxyCODONE /ACETAMINOPHEN [Percocet 5/325 mg] 1 tab PO Q6H PRN #14 tablet PRN Reason: Pain, Moderate (4-6) Promethazine [Phenergan] 25 mg PO Q6HR PRN #20 tab PRN Reason: Nausea
--- NOTE | 2019-07-07 14:23 | Progress Note ---
Assessment and Plan - Patient Problems (1) Abdominal fluid collection Current Visit: Yes Status: Acute Plan to address problem: Pt stable. s/p aspiration of back fluid collection - 07/06 - POD#1. Seroma was found aspiration. Initial Gram stain shows no evidence of any cells or bacteria. This is consistent with postoperative seroma formation. I strongly encouraged her to follow up with her plastic surgeon to address the significant swelling and all of her pain issues. She was appreciative for the help. Follow-up with plastic surgeon. Please call with questions. time=10min Subjective Date of service: 07/07/19 Patient Reports: Positive: no new complaints, still having pain Objective Vital Signs - 12hr 07/07/19 05:59 Temperature 98.2 F Pulse Rate 92 H Respiratory 18 Rate Blood Pressure 121/77 O2 Sat by Pulse 97 Oximetry - General physical appearance no distress, no pain - Respiratory normal expansion, normal respiratory effort - Psychiatric oriented to time, oriented to person, oriented to place, speech is normal, memory intact - Labs 07/07/19 07:28 07/07/19 07:28 Diabetes panel 07/07/19 Range/Units 07:28 Sodium 141 (137-145) mmol/L Potassium 3.9 (3.6-5.0) mmol/L Chloride 104.2 (98-107) mmol/L Carbon Dioxide 24 (22-30) mmol/L BUN 8 (7-17) mg/dL Creatinine 0.5 L (0.7-1.2) mg/dL Glucose 77 (65-100) mg/dL Calcium 8.1 L (8.4-10.2) mg/dL Calcium panel 07/07/19 Range/Units 07:28 Calcium 8.1 L (8.4-10.2) mg/dL Pituitary panel 07/07/19 Range/Units 07:28 Sodium 141 (137-145) mmol/L Potassium 3.9 (3.6-5.0) mmol/L Chloride 104.2 (98-107) mmol/L Carbon Dioxide 24 (22-30) mmol/L BUN 8 (7-17) mg/dL Creatinine 0.5 L (0.7-1.2) mg/dL Glucose 77 (65-100) mg/dL Calcium 8.1 L (8.4-10.2) mg/dL Adrenal panel 12/01/19 Range/Units 07:28 Sodium 141 (137-145) mmol/L Potassium 3.9 (3.6-5.0) mmol/L Chloride 104.2 (98-107) mmol/L Carbon Dioxide 24 (22-30) mmol/L BUN 8 (7-17) mg/dL Creatinine 0.5 L (0.7-1.2) mg/dL Glucose 77 (65-100) mg/dL Calcium 8.1 L (8.4-10.2) mg/dL
[2019-07-07] MEDS: oxyCODONE /ACETAMINOPHEN 5-325MG TAB PO PRN (16:59)
== END 2019-07-07 18:00 | disposition home or self-care (01) | DRG 863 ==
LOC: ED 16:24 → 3A 23:08
PROVIDERS: ADMIT Internal Medicine; ATTEND Internal Medicine
PROC: 0W9L3ZZ Drainage of Lower Back, Percutaneous Approach (ICD-10-PCS; principal; 2019-07-06)
DX: T81.41XA Infection following a procedure, superficial incisional surgical site, initial encounter (principal); Y83.8 Other surgical procedures as the cause of abnormal reaction of the patient, or of later complication, without mention of misadventure at the time of the procedure; D64.9 Anemia, unspecified; E66.01 Morbid (severe) obesity due to excess calories; K21.9 Gastro-esophageal reflux disease without esophagitis; J45.909 Unspecified asthma, uncomplicated; Z82.49 Family history of ischemic heart disease and other diseases of the circulatory system; Z79.899 Other long term (current) drug therapy; Z91.19 Patient's noncompliance with other medical treatment and regimen; Z98.84 Bariatric surgery status; Z88.5 Allergy status to narcotic agent; Z88.0 Allergy status to penicillin; Y92.098 Other place in other non-institutional residence as the place of occurrence of the external cause; Z68.41 Body mass index [BMI] 40.0-44.9, adult
CPT/HCPCS: 36415; 71275; 74177; 80048; 80053; 80202; 80307; 81001; 82550; 83735; 84443; 84703; 85025; 85027; 85379; 85610; 85730; 87075; 87116; 93005; 93010; 93970; G0378; J1170; J1644; J1940; J1956; J2250; J2405; J2704; J2765; J3010; J3370; J3411; J7030; J7042; Q9967

== ENCOUNTER 2019-09-29 11:09 | Emergency (ER) | payer MEDICAID ==
--- NOTE | 2019-09-29 13:13 | Event Note ---
ED Screening Note ED Screening Note: states she has generalized body aches, generalized weakness, chills that began two days ago states is having a heavy cycle +diarrhea headache rhinorrhea no ear pain no sore throat no cough no n/v PMHx anemia, last transfusion June allergy: none This initial assessment/diagnostic orders/clinical plan/treatment(s) is/are subject to change based on patients health status, clinical progression and re- assessment by fellow clinical providers in the ED. Further treatment and workup at subsequent clinical providers discretion. Patient/guardian urged not to elope from the ED as their condition may be serious if not clinically assessed and managed. Initial orders include: labs, flu swab
[2019-09-29 14:15] LABS: Basophils # (Auto) 0.1 K/mm3 (0.0-0.1); Basophils % (Auto) 0.8 % (0.0-1.8); Eosinophils # (Auto) 0.2 K/mm3 (0.0-0.4); Eosinophils % (Auto) 3.3 % (0.0-4.3); Hematocrit 34.7 % (30.3-42.9); Hemoglobin 11.5 gm/dl (10.1-14.3); Mean Corpuscular HGB Conc 33 % (30-34); Mean Corpuscular Volume 86 fl (79-97); Monocytes # (Auto) 0.5 K/mm3 (0.0-0.8); Monocytes % (Auto) 7.7 % (0.0-7.3); Platelet Count 329 K/mm3 (140-440); Red Blood Count 4.05 M/mm3 (3.65-5.03); Red Cell Distribution Width 16.3 % (13.2-15.2)
[2019-09-29] MEDS ORDERED: SODIUM CHLORIDE 0.9% 1000 ML 1,000 ML IV ONE (14:29)
[2019-09-29] MEDS ORDERED: METOCLOPRAMIDE 10 MG/2 ML INJ IV ONE (14:29)
[2019-09-29] MEDS ORDERED: diphenhydrAMINE 50 MG/ML VIAL IV ONE (14:29)
[2019-09-29 14:34] LABS: BUN/Creatinine Ratio 23; Blood Urea Nitrogen 14 mg/dL (7-17); Hemolysis Index 6
--- NOTE | 2019-09-29 15:14 | Cat Scan Report ---
CT HEAD WITHOUT CONTRAST INDICATION / CLINICAL INFORMATION: headache. TECHNIQUE: All CT scans at this location are performed using CT dose reduction for ALARA by means of automated e xposure control. COMPARISON: None available. FINDINGS: HEMORRHAGE: No evidence of intracranial hemorrhage or extra-axial fluid collection. EXTRA-AXIAL SPACES: Cortical sulci, sylvian fissures and basilar cisterns have an unremarkable appear ance. VENTRICULAR SYSTEM: The ventricular system is of normal size and configuration. CEREBRAL PARENCHYMA: No areas of abnormal brain parenchymal attenuation are identified. There is no i ndication of recent infarction. MIDLINE SHIFT OR HERNIATION: There is no mass effect. CEREBELLUM / BRAINSTEM: Brainstem and cerebellum have an unremarkable appearance. INTRACRANIAL VESSELS:No abnormalities are identified on this noncontrast head CT. ORBITS: visualized portions of the orbits have an unremarkable appearance. SOFT TISSUES of HEAD: No significant abnormality. CALVARIUM: Evaluation of bone windows reveals no abnormalities. PARANASAL SINUSES / MASTOID AIR CELLS: Paranasal sinuses are free from inflammatory mucosal disease. Mastoid air cells are normally pneumatized. IMPRESSION: 1. Normal CT head without contrast. Signer Name: Bairon Gaspar MD Signed: 09/29/2019 3:10 PM Workstation Name: [id number]
--- NOTE | 2019-09-29 15:38 | Emergency Department Report ---
ED Dizziness HPI - General Chief Complaint: Wound/Laceration Stated Complaint: WEAK DIZZY Time Seen by Provider: 09/29/19 13:09 Source: family Mode of arrival: Wheelchair Limitations: No Limitations - History of Present Illness Initial Comments: This is a 46-year-old female nontoxic, well nourished in appearance, no acute signs of distress presents to the ED with c/o of dizziness and headache. Patient stated has generlized weakness. Patient describes headache as diffuse with level of 3 out of 10. Patient denies thunderclap headache. Patient denies any radiation of pain. Patient denies any head trauma. Patient denies any visual changes. Patient denies worse headache. Patient stated that darkness makes headache better and bright lights make the headache worse. PAtient stated is on menstrual cycle now. Patient stated the dizziness is worsened with position change. Patient denies any numbness, tingling, headache, stiff neck, chest pain, shortness of breathe, numbness or tingling. Denies any visual changes or blurry vision. Stated allergies to codeine and PCN. MD Complaint: dizziness, other (headache) -: days(s) Timing: gradual onset Description: sense of movement, lightheadedness History of Same: Yes History of Trauma: No Severity: mild Improves With: nothing Worsens With: nothing Associated Symptoms: denies other symptoms. denies: ataxia, chest pain, confusion, cough, diaphoresis, fever/chills, loss of appetite, malaise, rash, seizure, shortness of breath, syncope, weakness - Related Data Previous Rx's Medication Instructions Recorded Last Taken Type methOCARBAMOL [Robaxin TAB] 500 mg PO Q6H PRN #20 tablet 06/29/19 Unknown Rx Promethazine [Phenergan] 25 mg PO Q6HR PRN #20 tab 07/07/19 Unknown Rx oxyCODONE /ACETAMINOPHEN [Percocet 1 tab PO Q6H PRN #14 tablet 07/07/19 Unknown Rx 5/325 mg] Meclizine [Antivert] 12.5 mg PO BID PRN #20 tablet 09/29/19 Unknown Rx Allergies Allergy/AdvReac Type Severity Reaction Status Date / Time codeine Allergy Itching Verified 06/27/19 12:13 Penicillins Allergy Itching Verified 06/27/19 12:13 ED Review of Systems ROS: Stated complaint: WEAK DIZZY Other details as noted in HPI Constitutional: denies: chills, fever Eyes: denies: eye pain, eye discharge, vision change ENT: denies: ear pain, throat pain Respiratory: denies: cough, shortness of breath, wheezing Cardiovascular: denies: chest pain, palpitations Endocrine: no symptoms reported Gastrointestinal: denies: abdominal pain, nausea, diarrhea Genitourinary: denies: urgency, dysuria, discharge Musculoskeletal: denies: back pain, joint swelling, arthralgia Skin: denies: rash, lesions Neurological: headache, weakness, vertigo. denies: paresthesias Psychiatric: denies: anxiety, depression Hematological/Lymphatic: denies: easy bleeding, easy bruising ED Past Medical Hx - Past Medical History Previous Medical History?: Yes Hx Hypertension: No Hx Heart Attack/AMI: No Hx Congestive Heart Failure: No Hx Diabetes: No Hx GERD: Yes Hx Liver Disease: No Hx Renal Disease: No Hx Asthma: Yes (childhood) Hx COPD: No Hx HIV: No - Surgical History Past Surgical History?: Yes Additional Surgical History: C- section x 4; foot surgery 2000. GASTRIC SLEEVE. LIPO AND FAT TRANSFER - Social History Smoking Status: Never Smoker Substance Use Type: None - Medications Home Medications: Home Medications Medication Instructions Recorded Confirmed Last Taken Type methOCARBAMOL [Robaxin TAB] 500 mg PO Q6H PRN #20 tablet 06/29/19 07/04/19 Unknown Rx Promethazine [Phenergan] 25 mg PO Q6HR PRN #20 tab 07/07/19 Unknown Rx oxyCODONE /ACETAMINOPHEN [Percocet 1 tab PO Q6H PRN #14 tablet 07/07/19 Unknown Rx 5/325 mg] Meclizine [Antivert] 12.5 mg PO BID PRN #20 tablet 09/29/19 Unknown Rx ED Physical Exam - General Limitations: No Limitations General appearance: alert, in no apparent distress - Head Head exam: Present: atraumatic, normocephalic - Eye Eye exam: Present: normal appearance, PERRL, EOMI - Neck Neck exam: Present: normal inspection, full ROM - Respiratory Respiratory exam: Present: normal lung sounds bilaterally. Absent: respiratory distress, wheezes, rales, rhonchi, stridor, chest wall tenderness, accessory muscle use, decreased breath sounds, prolonged expiratory - Cardiovascular Cardiovascular Exam: Present: regular rate, normal rhythm, normal heart sounds. Absent: irregular rhythm, systolic murmur, diastolic murmur, rubs, gallop - GI/Abdominal GI/Abdominal exam: Present: soft, normal bowel sounds. Absent: distended, tenderness, guarding, rebound, rigid, diminished bowel sounds - Extremities Exam Extremities exam: Present: normal inspection, full ROM - Back Exam Back exam: Present: normal inspection, full ROM. Absent: tenderness, CVA tenderness (R), CVA tenderness (L), muscle spasm, paraspinal tenderness, vertebral tenderness, rash noted - Neurological Exam Neurological exam: Present: alert, oriented X3, normal gait - Expanded Neurological Exam Expanded Patient oriented to: Present: person, place, time Cranial nerves: EOM's Intact: Normal, Facial Sensation: Normal Cerebellar function: Finger to Nose: Normal Upper motor neuron: Pronator Drift: Normal, Sensory Extinction: Normal Motor strength exam: RUE: 5, LUE: 5, RLE: 5, LLE: 5 Best Eye Response (Gwen): (4) open spontaneously Best Motor Response (Gwen): (6) obeys commands Best Verbal Response (Gwen): (5) oriented Dewey Total: 15 - Psychiatric Psychiatric exam: Present: normal affect, normal mood - Skin Skin exam: Present: warm, dry, intact, normal color. Absent: rash ED Course Vital Signs 09/29/19 09/29/19 13:10 13:42 Temperature 97.9 F Pulse Rate 91 H Respiratory 20 17 Rate Blood Pressure 114/71 O2 Sat by Pulse 98 Oximetry - Reevaluation(s) Reevaluation #1: 09/29/19 15:32 Patient is speaking in full sentences with no signs of distress noted. ED Medical Decision Making - Lab Data Result diagrams: 09/29/19 13:47 09/29/19 13:47 - Medical Decision Making This is a 40-year-old female that presents with dizziness, headache and weakness. Patient is stable and was examined by me. Patient is neurologically stable. There is no stiff neck or neck pain. Vital signs are stable. Patient is afebrile. Labs unremarkable. CT scan within and dictated by radiologist. Patient received Benadryl, Reglan, Toradol, and 1 L of normal saline which the patient stated that headache has subsided and resolved. Patient was instructed not to operate any machinery after discharged due to drowsiness of Benadryl. Patient stated that a family member will drive patient home. Patient agrees to discharge treatment plan of care. Patient is neurologically stable. Patient was instructed to Follow-up with a primary care doctor in 3-5 days or if symptoms worsen and continue return to emergency room as soon as possible. At time of discharge, the patient does not seem toxic or ill in appearance. No acute signs of distress noted. Patient agrees to discharge treatment plan of care. No further questions noted by the patient. Critical care attestation.: If time is entered above; I have spent that time in minutes in the direct care of this critically ill patient, excluding procedure time. ED Disposition Clinical Impression: Dizziness, Generalized weakness Headache Qualifiers: Headache type: unspecified Headache chronicity pattern: acute headache Intractability: not intractable Qualified Code(s): R51 - Headache Disposition: DC-01 TO HOME OR SELFCARE Is pt being admited?: No Does the pt Need Aspirin: No Condition: Stable Instructions: Acute Headache (ED), Dizziness (ED) Additional Instructions: Follow-up with a primary care doctor in 3-5 days or if symptoms worsen and continue return to emergency room as soon as possible. Prescriptions: Meclizine [Antivert] 12.5 mg PO BID PRN #20 tablet PRN Reason: Vertigo Referrals: PRIMARY MD DINH [Primary Care Provider] - 3-5 Days ORQUIDEA CHAN MD [Staff Physician] - 3-5 Days [facility] [Outside] - 3-5 Days Forms: Work/School Release Form(ED)
[2019-09-29 16:02] VITALS: BP 107/48
== END 2019-09-29 16:05 | disposition home or self-care (01) ==
LOC: ED 11:09
DX: R42 Dizziness and giddiness (principal); R53.1 Weakness; R51 Headache; K21.9 Gastro-esophageal reflux disease without esophagitis; J45.909 Unspecified asthma, uncomplicated; Z98.890 Other specified postprocedural states; Z79.899 Other long term (current) drug therapy; Z88.0 Allergy status to penicillin; Z88.6 Allergy status to analgesic agent
CPT/HCPCS: 36415; 70450; 80048; 84703; 85025; 87400; 96361; 96374; 96375; 99284; J1200; J2765; J7030

== ENCOUNTER 2020-04-22 19:14 | Observation (INO) | payer MEDICAID ==
[2020-04-22] MEDS ORDERED: SODIUM CHLORIDE 0.9% 1000 ML IV SOLN IV ONE (19:50)
[2020-04-22] MEDS ORDERED: ACETAMINOPHEN 500 MG TAB PO ONE (19:51)
[2020-04-22 20:03] LABS: Basophils # (Auto) 0.1 K/mm3 (0.0-0.1); Basophils % (Auto) 0.7 % (0.0-1.8); Eosinophils # (Auto) 0.1 K/mm3 (0.0-0.4); Eosinophils % (Auto) 1.8 % (0.0-4.3); Hematocrit 34.4 % (30.3-42.9); Hemoglobin 11.9 gm/dl (10.1-14.3); Lymphocytes # (Auto) 0.9 K/mm3 (1.2-5.4); Lymphocytes % (Auto) 11.8 % (13.4-35.0); Mean Corpuscular HGB Conc 35 % (30-34); Mean Corpuscular Volume 89 fl (79-97); Monocytes # (Auto) 0.4 K/mm3 (0.0-0.8); Monocytes % (Auto) 5.5 % (0.0-7.3); Platelet Count 292 K/mm3 (140-440); Red Blood Count 3.88 M/mm3 (3.65-5.03)
[2020-04-22] MEDS ORDERED: CEFEPIME/NS 2 GM/100 ML 2 GM/100 ML BAG IV ONE (20:04)
--- NOTE | 2020-04-22 20:11 | Emergency Department Report ---
ED Abdominal Pain HPI - General Chief Complaint: Fever Stated Complaint: DIZZY,FEVER,WOUND Time Seen by Provider: 04/22/20 19:50 Source: patient Mode of arrival: Wheelchair Limitations: No Limitations - History of Present Illness Initial Comments: Patient is a 39-year-old female that presents emergency room with complaints of abdominal pain, fever,, open surgical wound to the abdomen, nausea and vomiting, increased heart rate. Patient states that she had surgery March 08/2020. Patient states she went to the [facility], [place] for her cosmetic surgery. Patient states she had a [place] butt lift, fat transfer, tummy tuck, breast lift with augmentation and implants, liposuction. Patient states she has had complications from the surgery. Patient states she is seeing wound care. Patient states she saw her video conference specialist Monday of this week. Patient states her video conference specialist placed her on amoxicillin and Bactrim. Patient states her fever started today. Patient states her dizziness started today. Patient states her abdominal pain has been going on for weeks but worsened today. Patient states her nausea and vomiting and increased heart rate started today. Patient states her abdominal pain is a 10 out of 10. Patient states that her pain is better with rest and worse with movement. Patient states that she has not taken any Tylenol or ibuprofen for the pain or fever. Patient states her open wound has a purulent discharge. Patient denies recent travel. Patient denies recent international travel. Patient denies exposure to the novel coronavirus. Patient denies sick contacts. Patient denies fever and chills. Patient denies cough. Patient denies diarrhea. Patient denies coming in contact with anybody with symptoms of the novel coronavirus. MD Complaint: abdominal pain -: Sudden Location: LLQ, RLQ Radiation: none Migration to: no migration Severity: severe Severity scale (0 -10): 7 Quality: stabbing, sharp Consistency: constant Improves With: rest Worsens With: movement Context: recent surgery/procedure Associated Symptoms: nausea, vomiting, fever, chills. denies: diarrhea, constipation, dysuria, hematemesis, hematochezia, melena, hematuria, anorexia, syncope - Related Data LMP (females 10-50): this week Previous Rx's Medication Instructions Recorded Last Taken Type methOCARBAMOL [Robaxin TAB] 500 mg PO Q6H PRN #20 tablet 06/29/19 Unknown Rx Promethazine [Phenergan] 25 mg PO Q6HR PRN #20 tab 07/07/19 Unknown Rx Meclizine [Antivert] 12.5 mg PO BID PRN #20 tablet 09/29/19 Unknown Rx Albuterol Mdi (or & Nicu Only) 2 puff IH QID PRN #8.5 gram 03/27/20 Unknown Rx [ProAir HFA Inhaler] Clindamycin [Clindamycin CAP] 300 mg PO Q8H #21 cap 03/27/20 Unknown Rx Promethazine [Phenergan] 25 mg PO Q6HR PRN #25 tab 03/27/20 Unknown Rx oxyCODONE /ACETAMINOPHEN [Percocet 1 tab PO Q6H PRN #14 tablet 03/27/20 Unknown Rx 5/325 mg] Allergies Allergy/AdvReac Type Severity Reaction Status Date / Time No Known Allergies Allergy Verified 04/22/20 23:09 ED Review of Systems ROS: Stated complaint: DIZZY,FEVER,WOUND Other details as noted in HPI Constitutional: see HPI, chills, fever Eyes: denies: eye pain, eye discharge, vision change ENT: denies: ear pain, throat pain Respiratory: denies: cough, shortness of breath, wheezing Cardiovascular: palpitations. denies: chest pain Endocrine: no symptoms reported Gastrointestinal: abdominal pain, nausea, vomiting. denies: diarrhea Genitourinary: denies: urgency, dysuria, discharge Musculoskeletal: denies: back pain, joint swelling, arthralgia Skin: denies: rash, lesions Neurological: as per HPI. denies: headache, weakness, paresthesias Psychiatric: denies: anxiety, depression Hematological/Lymphatic: denies: easy bleeding, easy bruising ED Past Medical Hx - Past Medical History Previous Medical History?: Yes Hx Hypertension: No Hx Heart Attack/AMI: No Hx Congestive Heart Failure: No Hx Diabetes: No Hx GERD: Yes Hx Liver Disease: No Hx Renal Disease: No Hx Asthma: Yes (childhood) Hx COPD: No Hx HIV: No - Surgical History Past Surgical History?: Yes Additional Surgical History: C- section x 4; foot surgery 2000. GASTRIC SLEEVE. LIPO AND FAT TRANSFER - Family History Family history: no significant - Social History Smoking Status: Never Smoker Substance Use Type: None - Medications Home Medications: Home Medications Medication Instructions Recorded Confirmed Last Taken Type methOCARBAMOL [Robaxin TAB] 500 mg PO Q6H PRN #20 tablet 06/29/19 07/04/19 Unknown Rx Promethazine [Phenergan] 25 mg PO Q6HR PRN #20 tab 07/07/19 Unknown Rx Meclizine [Antivert] 12.5 mg PO BID PRN #20 tablet 09/29/19 Unknown Rx Albuterol Mdi (or & Nicu Only) 2 puff IH QID PRN #8.5 gram 03/27/20 Unknown Rx [ProAir HFA Inhaler] Clindamycin [Clindamycin CAP] 300 mg PO Q8H #21 cap 03/27/20 Unknown Rx Promethazine [Phenergan] 25 mg PO Q6HR PRN #25 tab 03/27/20 Unknown Rx oxyCODONE /ACETAMINOPHEN [Percocet 1 tab PO Q6H PRN #14 tablet 03/27/20 Unknown Rx 5/325 mg] ED Physical Exam - General Limitations: No Limitations General appearance: alert, in no apparent distress - Head Head exam: Present: atraumatic, normocephalic - Eye Eye exam: Present: normal appearance - ENT ENT exam: Present: mucous membranes moist - Neck Neck exam: Present: normal inspection - Respiratory Respiratory exam: Present: normal lung sounds bilaterally. Absent: respiratory distress - Cardiovascular Cardiovascular Exam: Present: regular rate, normal rhythm. Absent: systolic murmur, diastolic murmur, rubs, gallop - GI/Abdominal GI/Abdominal exam: Present: soft, tenderness, normal bowel sounds, other (Open surgical wound noted to the midline abdomen with purulent discharge.) - Extremities Exam Extremities exam: Present: normal inspection - Back Exam Back exam: Present: normal inspection - Neurological Exam Neurological exam: Present: alert, oriented X3 - Psychiatric Psychiatric exam: Present: normal affect, normal mood - Skin Skin exam: Present: warm, dry, intact, normal color. Absent: rash ED Course Vital Signs 04/22/20 04/22/20 04/22/20 19:43 21:00 21:15 Temperature 100.1 F H Pulse Rate 147 H 117 H 115 H Respiratory 18 23 26 H Rate Blood Pressure 141/81 114/72 114/72 O2 Sat by Pulse 96 100 Oximetry - Reevaluation(s) Reevaluation #1: Patient's fluid and antibiotics ordered. 09/16/20 20:13 Reevaluation #2: Patient complaining of abdominal pain. Patient will be given Dilaudid. Patient's heart rate is improving. Patient receiving antibiotics and fluids. 04/22/20 21:13 Reevaluation #3: Patient states her pain is better. 04/22/20 22:01 Reevaluation #4: I discussed all results with patient. I discussed plan of care with patient. Patient agrees with plan of care and admission. Patient to be admitted to the hospitalist service. Patient complains of severe abdominal pain. Patient with another dose of Dilaudid. Patient also will be given more fluids. 04/22/20 23:21 - Consultations Consultation #1: I discussed all results with patient. I discussed plan of care with patient. Patient agrees with plan of care and admission. Patient to be admitted to the hospitalist service. 04/22/20 23:21 Consultation #2: General surgery paged 04/22/20 23:[address] Castle, general surgery. Dr. Castle recommends admis nolan to the medical service and she will see the patient in the morning. 04/22/20 23:37 ED Medical Decision Making - Lab Data Result diagrams: 04/22/20 19:51 04/22/20 19:51 - Radiology Data Radiology results: report reviewed CT ABDOMEN AND PELVIS WITH CONTRAST INDICATION / CLINICAL INFORMATION: Patient complains of abdominal pain and fever.. TECHNIQUE: Axial CT images were obtained through the abdomen and pelvis after IV contrast. All CT scans at this location are performed using CT dose reduction for ALARA by means of automated exposure control. COMPARISON: 03/27/2020 FINDINGS: LOWER CHEST: Partially visualized bilateral breast implants. Visualized portions of bilateral lung suárez are clear. LIVER: No significant abnormality. GALLBLADDER: No significant abnormality. BILE DUCTS: No significant abnormality. PANCREAS: No significant abnormality. SPLEEN: No significant abnormality. ADRENALS: No significant abnormality. RIGHT KIDNEY / URETER: No significant abnormality. LEFT KIDNEY / URETER: No significant abnormality. STOMACH / SMALL BOWEL: Surgical changes are noted of the stomach. COLON: No significant abnormality. APPENDIX: No significant abnormality. PERITONEUM: No free fluid. No free air. No fluid collection. LYMPH NODES: No significant adenopathy. AORTA / ARTERIES: No significant abnormality. IVC / VEINS: No significant abnormality. URINARY BLADDER: No significant abnormality. REPRODUCTIVE ORGANS: Physiologic changes are noted of the uterus. Multiple small uterine fibroids are noted the largest measuring 2 cm. Bilateral ovarian cysts are noted. The largest on the left measuring 4 x 2.7 cm demonstrating a thin septation. ADDITIONAL FINDINGS: Post surgical changes to the midline ventral abdominal wall are similar to prior exam with minimal improvement of subcutaneous emphysema.. Persistent body wall edema. SKELETAL SYSTEM: Mild multilevel degenerative changes of the spine are similar to prior exam. IMPRESSION: 1. No significant acute abnormality. 2. Post surgical changes of the ventral abdominal wall are similar to prior exam with minimal improvement of subcutaneous exam. 3. Persistent body wall edema. 4. Post surgical changes of the stomach are stable. - Medical Decision Making Patient is a 39-year-old female that presents emergency room with complaints of nausea, vomiting, fever, abdominal pain, dizziness. Patient had a recent cosmetic surgery and she is having anterior abdominal surgical wound complications. Patient is already seen wound care. Patient's on outpatient antibiotics prior to coming to the ER. Patient in triage, had a code sepsis initiated. Patient given fluids and antibiotics early in her evaluation. Patient on exam found to have purulent discharge from her surgical wound in her abdomen. Patient also tender in her abdomen. Patient had a CAT scan of her abdomen which shows inflammation around her surgical site. No other acute findings noted on CT. Patient had labs done. Patient's lactic acid was negative. Patient's white count was normal. Patient's labs were essentially unremarkable. Patient's urine shows WBCs and RBCs, Patient is currently on her cycle. Patient admitted to the hospitalist service for further evaluation and treatment. General surgery also consulted. - Differential Diagnosis UTI, abdominal pain, surgical wound infection, sepsis, Sirs, Critical Care Time: Yes Critical care time in (mins) excluding proc time.: 35 Critical care attestation.: If time is entered above; I have spent that time in minutes in the direct care of this critically ill patient, excluding procedure time. Critical Care Time: 35 minutes ED Disposition Clinical Impression: SIRS (systemic inflammatory response syndrome), Tachycardia, Surgical wound infection, Dizziness Fever Qualifiers: Fever type: unspecified Qualified Code(s): R50.9 - Fever, unspecified Abdominal pain Qualifiers: Abdominal location: lower abdomen, unspecified Qualified Code(s): R10.30 - Lower abdominal pain, unspecified Nausea & vomiting Qualifiers: Vomiting type: unspecified Vomiting Intractability: non-intractable Qualified C ode(s): R11.2 - Nausea with vomiting, unspecified Disposition: DC-09 OP ADMIT IP TO THIS HOSP Is pt being admited?: Yes Does the pt Need Aspirin: No Condition: Critical Referrals: ELO OLIVA MD [Primary Care Provider] - 3-5 Days Time of Disposition: 23:12
--- NOTE | 2020-04-22 20:11 | Emergency Department Report ---
Blank Doc - Documentation Documentation: 39-year-old female that presents with fever, tachycardia s/p abdominal surgery, This initial assessment/diagnostic orders/clinical plan/treatment(s) is/are subject to change based on patient's health status, clinical progression and re- assessment by fellow clinical providers in the ED. Further treatment and workup at subsequent clinical providers discretion. Patient/guardians urged not to elope from the ED as their condition may be serious if not clinically assessed and managed. Initial orders include: 1- Patient sent to [facility] for further evaluation and treatment 2- code sepsis initiated w/ labs and treatment
[2020-04-22 20:26] LABS: Alanine Aminotransferase 9 units/L (7-56); BUN/Creatinine Ratio 20; Blood Urea Nitrogen 16 mg/dL (7-17); Calcium 9.2 mg/dL (8.4-10.2); Hemolysis Index 2
[2020-04-22] MEDS ORDERED: HYDROmorphone 1 MG/1 ML INJ IV ONE (21:22)
[2020-04-22 21:51] LABS: Bilirubin,Urine NEG (Negative); Blood,Urine LG (Negative); Color,Urine Red (Yellow); Urobilinogen,Urine < 2.0 mg/dL (<2.0)
[2020-04-22 21:52] LABS: Protein,Urine >500 mg/dL (Negative); RBC,Urine > 182.0 /HPF (0.0-6.0); WBC,Urine > 182.0 /HPF (0.0-6.0)
--- NOTE | 2020-04-22 22:00 | Cat Scan Report ---
CT ABDOMEN AND PELVIS WITH CONTRAST INDICATION / CLINICAL INFORMATION: Patient complains of abdominal pain and fever.. TECHNIQUE: Axial CT images were obtained through the abdomen and pelvis after IV contrast. All CT scans at this location are performed using CT dose reduction for ALARA by means of automated exposure control. COMPARISON: 03/27/2020 FINDINGS: LOWER CHEST: Partially visualized bilateral breast implants. Visualized portions of bilateral lung fi elds are clear. LIVER: No significant abnormality. GALLBLADDER: No significant abnormality. BILE DUCTS: No significant abnormality. PANCREAS: No significant abnormality. SPLEEN: No significant abnormality. ADRENALS: No significant abnormality. RIGHT KIDNEY / URETER: No significant abnormality. LEFT KIDNEY / URETER: No significant abnormality. STOMACH / SMALL BOWEL: Surgical changes are noted of the stomach. COLON: No significant abnormality. APPENDIX: No significant abnormality. PERITONEUM: No free fluid. No free air. No fluid collection. LYMPH NODES: No significant adenopathy. AORTA / ARTERIES: No significant abnormality. IVC / VEINS: No significant abnormality. URINARY BLADDER: No significant abnormality. REPRODUCTIVE ORGANS: Physiologic changes are noted of the uterus. Multiple small uterine fibroids are noted the largest measuring 2 cm. Bilateral ovarian cysts are noted. The largest on the left measuri ng 4 x 2.7 cm demonstrating a thin septation. ADDITIONAL FINDINGS: Post surgical changes to the midline ventral abdominal wall are similar to prior exam with minimal improvement of subcutaneous emphysema.. Persistent body wall edema. SKELETAL SYSTEM: Mild multilevel degenerative changes of the spine are similar to prior exam. IMPRESSION: 1. No significant acute abnormality. 2. Post surgical changes of the ventral abdominal wall are similar to prior exam with minimal improve ment of subcutaneous exam. 3. Persistent body wall edema. 4. Post surgical changes of the stomach are stable. Signer Name: Zafar Valverde MD Signed: 04/22/2020 9:56 PM Workstation Name: [id number]
[2020-04-22] MEDS ORDERED: VANCOMYCIN/NS 1 GM/250 ML 1 GM/250 ML BAG IV ONE (23:04)
[2020-04-22] MEDS ORDERED: MAGNESIUM HYDROXIDE (MOM) ORAL LIQD UDC PO PRN (23:21)
[2020-04-22] MEDS ORDERED: ONDANSETRON 4 MG/2 ML INJ IV PRN (23:21)
[2020-04-22] MEDS ORDERED: ACETAMINOPHEN 325 MG TAB PO PRN (23:21)
[2020-04-22] MEDS ORDERED: MORPHINE 2 MG/1 ML INJ IV PRN (23:21)
[2020-04-22] MEDS ORDERED: SODIUM CHLORIDE 0.9% 1000 ML 1,000 ML IV SCH (23:30)
--- NOTE | 2020-04-22 23:30 | History and Physical Report ---
History of Present Illness Date of examination: 04/22/20 Date of admission: 04/22/2020 Chief complaint: Nausea Vomiting Fever Abdominal wound History of present illness: 39-year-old female with significant past medical history of GERD and childhood asthma presenting to the emergency room today complaining of abdominal pain, nausea and vomiting, open surgical wound on the abdomen and palpitation. Patient was in [facility] sometime in March 08, 2020 when he had cosmetic surgery she also had a [place] butt lift, fat transfer, tummy tuck, breast lift with augmentation and implants and also liposuction. She has had complications from the surgery and has been following up with wound care. Last visit to wound care was about a few days ago. She has been placed on amoxicillin and Bactrim. Patient however has been having some abdominal pain and having some purulent discharge from the surgical wound, she has also been having fever, nausea and vomiting. Abdominal pain worsened today and therefore is decided to check into the emergency room. Upon arrival in the emergency room today patient had CT scan of the abdomen and pelvis which did not reveal any significant abnormality. General surgeon has been consulted by the ER physician for evaluation. She has been started on empiric IV antibiotics. Past History Past Medical History: GERD, other (Asthma- in childhood) Past Surgical History: (x4), Other (Abdominal cosmetic surgery,Gastric sleeve, liposuction, foot surgery in 2000) Social history: no significant social history Medications and Allergies Allergies Allergy/AdvReac Type Severity Reaction Status Date / Time No Known Allergies Allergy Verified 04/22/20 23:09 Home Medications Medication Instructions Recorded Confirmed Last Taken Type methOCARBAMOL [Robaxin TAB] 500 mg PO Q6H PRN #20 tablet 06/29/19 07/04/19 Unknown Rx Promethazine [Phenergan] 25 mg PO Q6HR PRN #20 tab 07/07/19 Unknown Rx Meclizine [Antivert] 12.5 mg PO BID PRN #20 tablet 09/29/19 Unknown Rx Albuterol Mdi (or & Nicu Only) 2 puff IH QID PRN #8.5 gram 03/27/20 Unknown Rx [ProAir HFA Inhaler] Clindamycin [Clindamycin CAP] 300 mg PO Q8H #21 cap 03/27/20 Unknown Rx Promethazine [Phenergan] 25 mg PO Q6HR PRN #25 tab 03/27/20 Unknown Rx oxyCODONE /ACETAMINOPHEN [Percocet 1 tab PO Q6H PRN #14 tablet 03/27/20 Unknown Rx 5/325 mg] Active Meds: Active Medications Acetaminophen (Tylenol) 650 mg PO Q4H PRN PRN Reason: Pain MILD(1-3)/Fever >100.5/NATARAJAN Vancomycin HCl (Vancomycin/Ns 1 Gm/250 Ml) 1 gm in 250 mls @ 167.007 mls/hr IV ONCE ONE; Protocol Stop: 04/23/20 00:33 Sodium Chloride (Nacl 0.9% 1000 Ml) 1,000 mls @ 75 mls/hr IV DIRECT MARQUITA Magnesium Hydroxide (Milk Of Magnesia) 30 ml PO Q4H PRN PRN Reason: Constipation Morphine Sulfate (Morphine) 2 mg IV Q4H PRN PRN Reason: Pain, Moderate (4-6) Ondansetron HCl (Zofran) 4 mg IV Q8H PRN PRN Reason: Nausea And Vomiting Sodium Chloride (Sodium Chloride Flush Syringe 10 Ml) 10 ml IV BID MARQUITA Sodium Chloride (Sodium Chloride Flush Syringe 10 Ml) 10 ml IV PRN PRN PRN Reason: LINE FLUSH Review of Systems Constitutional: fever, no chills Ears, nose, mouth and throat: no nasal congestion, no sore throat Cardiovascular: no chest pain, no palpitations Respiratory: no cough, no shortness of breath Gastrointestinal: abdominal pain, nausea, vomiting, no diarrhea Genitourinary Female: no pelvic pain, no flank pain, no dysuria Musculoskeletal: no neck pain, no low back pain Integumentary: no rash, no pruritis Neurological: no headaches, no confusion Exam - Constitutional Vitals: Temp Pulse Resp BP Pulse Ox 100.1 F H 115 H 26 H 114/72 100 04/22/20 19:43 04/22/20 21:15 04/22/20 21:15 04/22/20 21:15 04/22/20 21:15 General appearance: Present: no acute distress, well-nourished - EENT Eyes: Present: PERRL, EOM intact. Absent: scleral icterus ENT: hearing intact, clear oral mucosa, dentition normal - Neck Neck: Present: supple, normal ROM - Respiratory Respiratory effort: normal Respiratory: bilateral: CTA - Cardiovascular Rhythm: regular Heart Sounds: Present: S1 & S2. Absent: gallop, systolic murmur, diastolic murmur, rub - Extremities Extremities: no ischemia, pulses symmetrical, No edema, Full ROM Peripheral Pulses: within normal limits - Abdominal General gastrointestinal: Present: soft, tender (Mild tenderness around surgical site, dressing over midline wound), non-distended, normal bowel sounds. Absent: mass - Integumentary Integumentary: Present: clear, warm, dry - Musculoskeletal Musculoskeletal: strength equal bilaterally - Psychiatric Psychiatric: appropriate mood/affect, intact judgment & insight, memory intact - Neurologic Neurologic: CNII-XII intact, no focal deficits, moves all extremities Results - Labs CBC & Chem 7: 04/22/20 19:51 04/22/20 19:51 Labs: Abnormal lab results 04/22/20 04/22/20 04/22/20 Range/Units 19:51 19:51 Unknown MCHC 35 H (30-34) % Lymph % (Auto) 11.8 L (13.4-35.0) % Lymph # 0.9 L (1.2-5.4) K/mm3 Seg Neutrophils % 80.2 H (40.0-70.0) % Sodium 135 L (137-145) mmol/L Urine WBC (Auto) > 182.0 H (0.0-6.0) /HPF Assessment and Plan - Patient Problems (1) Surgical wound infection Current Visit: Yes Status: Acute Plan to address problem: Secondary to recent cosmetic surgery. Patient placed on empiric IV antibiotics. Consult has been placed to general surgeon for evaluation and recommendation. (2) UTI (urinary tract infection) Current Visit: Yes Qualifiers: Urinary tract infection type: acute cystitis Hematuria presence: with hematuria Qualified Code(s): N30.01 - Acute cystitis with hematuria Plan to address problem: Continue on empiric anbiotics. (3) DVT prophylaxis Current Visit: No Status: Acute Plan to address problem: Placed on sequential compression device. (4) Full code status Current Visit: Yes Status: Acute
[2020-04-22] MEDS ORDERED: VANCOMYCIN PHARMACY TO DOSE IV SCH (23:45)
[2020-04-22] MEDS ORDERED: HYDROmorphone 2 MG/1 ML INJ IV ONE (23:45)
[2020-04-22] MEDS ORDERED: SODIUM CHLORIDE 0.9% 1000 ML 1,000 ML IV ONE (23:45)
[2020-04-22] MEDS ORDERED: HYDROmorphone 1 MG/1 ML INJ ONE (23:59)
[2020-04-22] MEDS ORDERED: SODIUM CHLORIDE 0.9% 1000 ML 1,000 ML ONE (23:59)
[2020-04-23] MEDS ORDERED: HYDROmorphone 2 MG/1 ML INJ ONE (00:13)
[2020-04-23] MEDS ORDERED: diphenhydrAMINE 50 MG/ML VIAL IV ONE (00:18)
[2020-04-23] MEDS ORDERED: diphenhydrAMINE 50 MG/ML VIAL ONE (00:37)
[2020-04-23] MEDS ORDERED: METOCLOPRAMIDE 10 MG/2 ML INJ IV ONE (03:45)
[2020-04-23] MEDS: HYDROmorphone 1 MG/1 ML INJ IV PRN ×2 (04:05→08:46)
[2020-04-23] MEDS: diphenhydrAMINE 50 MG/ML VIAL IV PRN ×2 (04:05→11:37)
[2020-04-23] MEDS ORDERED: CEFEPIME/NS 2 GM/100 ML 2 GM/100 ML BAG IV SCH (06:00)
[2020-04-23 06:53] VITALS: BP 111/54
[2020-04-23 09:56] LABS: Basophils # (Auto) 0.1 K/mm3 (0.0-0.1); Basophils % (Auto) 1.1 % (0.0-1.8); Eosinophils # (Auto) 0.5 K/mm3 (0.0-0.4); Eosinophils % (Auto) 7.5 % (0.0-4.3); Hematocrit 31.5 % (30.3-42.9); Hemoglobin 10.6 gm/dl (10.1-14.3); Lymphocytes # (Auto) 1.2 K/mm3 (1.2-5.4); Lymphocytes % (Auto) 16.9 % (13.4-35.0); Mean Corpuscular HGB Conc 34 % (30-34); Mean Corpuscular Volume 90 fl (79-97); Monocytes # (Auto) 0.6 K/mm3 (0.0-0.8); Monocytes % (Auto) 7.6 % (0.0-7.3); Platelet Count 229 K/mm3 (140-440); Red Blood Count 3.52 M/mm3 (3.65-5.03); Red Cell Distribution Width 15.1 % (13.2-15.2)
[2020-04-23 10:10] LABS: Blood Urea Nitrogen 9 mg/dL (7-17); Calcium 7.9 mg/dL (8.4-10.2); Hemolysis Index 4
[2020-04-23 10:12] LABS: INR 1.04 (0.87-1.13)
[2020-04-23] MEDS ORDERED: SIMETHICONE 80 MG CHEW TAB PO PRN (10:22)
[2020-04-23] MEDS ORDERED: oxyCODONE 5 MG TAB PO PRN (10:23)
[2020-04-23 10:25] LABS: BUN/Creatinine Ratio 15
--- NOTE | 2020-04-23 10:28 | Discharge Summary ---
Providers - Providers Date of Admission: 04/22/20 23:50 Attending physician: JEFF MUELLER MD 04/22/20 23:38 Consult to Physician [CONS] Routine Comment: Dr. Oglesby spoke with Dr. Silva @ [id number] Consulting Provider: JS SILVA Physician Instructions: Reason For Exam: abd wound infection 04/23/20 01:47 Consult to Wound/ET Nurse [CONS] Urgent Reason For Exam: wound eval Primary care physician: ELO MATIAS [place] Hospitalization Reason for admission: Abdominal wound Condition: Stable Hospital course: 39-year-old female with significant past medical history of GERD and childhood asthma presenting to the emergency room today complaining of abdominal pain, nausea and vomiting, open surgical wound on the abdomen and palpitation. Patient was in [place] sometime in March 08, 2020 when he had cosmetic surgery she also had a [place] butt lift, fat transfer, tummy tuck, breast lift with augmentation and implants and also liposuction. She has had complications from the surgery and has been following up with wound care. Last visit to wound care was about a few days ago. She has been placed on amoxicilli n and Bactrim. Patient however has been having some abdominal pain and having some purulent discharge from the surgical wound, she has also been having fever, nausea and vomiting. Abdominal pain worsened today and therefore is decided to check into the emergency room. Upon arrival in the emergency room today patient had CT scan of the abdomen and pelvis which did not reveal any significant abnormality. General surgeon has been consulted by the ER physician for evaluation. She has been started on empiric IV antibiotics. This morning no further fevers documented. I did discuss patient's diagnosis which includes urinary tract infection and presumed infected abdominal wound although improving. Patient was seen by wound care no pus was expressed from the wound. Dressing was changed and dressing education provided patient was also advised that she needs aggressive wound follow-up at the wound care center she verbalized understanding. She did receive pain medication and gas medicatio ns simethicone. She states that since that she had a surgical sleeve that she has not been able to keep any food down that is suspected according to her surgeon. She is able to keep liquids down and has been on that. (1) Surgical wound infection with wound dehiscence At the outside surgery center Advised about p.o. antibiotics and also need to follow-up with the wound care center. (2) acute cystitis Current Visit: Yes Qualifiers: Urinary tract infection type: acute cystitis Hematuria presence: with hematuria Qualified Code(s): N30.01 - Acute cystitis with hematuria Plan to address problem: Continue on empiric anbiotics. (3) obesity Disposition: -01 TO HOME OR SELFCARE Time spent for discharge: 35 mins Core Measure Documentation - Palliative Care Palliative Care/ Comfort Measures: Not Applicable - Core Measures Any of the following diagnoses?: none Exam - Physical Exam Narrative exam: VITAL SIGNS: Reviewed. GENERAL: The patient appears normally developed, Vital signs as documented. HEAD: No signs of head trauma. EYES: Pupils are equal. Extraocular motions intact. EARS: Hearing grossly intact. MOUTH: Oropharynx is normal. NECK: No adenopathy, no JVD. CHEST: Chest with clear breath sounds bilaterally. No wheezes, rales, or rhonchi. CARDIAC: Regular rate and rhythm. S1 and S2, without murmurs, gallops, or rubs . VASCULAR: No Edema. Peripheral pulses normal and equal in all extremities. ABDOMEN: Wound dressing at the navel area with wound dehiscence and also suprapubic area. Multiple skinfold noted no other erythema or lesions noted. Mildly tender to touch soft, non distended. No rebound or guarding, and no masses palpated. Bowel Sounds normal. MUSCULOSKELETAL: Good range of motion of all major joints. Extremities without clubbing, cyanosis or edema. NEUROLOGIC EXAM: Alert and oriented x 3 No focal sensory or strength deficits. Speech normal. Follows commands. PSYCHIATRIC: Mood normal. SKIN: detail exam as documented in skin assessment - Constitutional Vitals: Temp Pulse Resp BP Pulse Ox 97.9 F 83 18 111/54 96 04/23/20 05:31 04/23/20 05:31 04/23/20 05:31 04/23/20 05:31 04/23/20 05:31 Plan Activity: advance as tolerated, fall precautions Diet: low fat Special Instructions: record daily weights, record daily BP diary Follow up with: ELO OLIVA MD [Primary Care Provider] - 3-5 Days [facility] - 7 Days Prescriptions: Simethicone [Gas Relief] 80 mg PO DAILY #30 tab.chew cephALEXin [Keflex] 500 mg PO Q12HR #8 cap oxyCODONE /ACETAMINOPHEN [Percocet 5/325 mg] 1 tab PO Q6H PRN #14 tablet PRN Reason: Pain, Moderate (4-6)
--- NOTE | 2020-04-23 11:13 | Consultation ---
History of Present Illness Consult date: 04/23/20 Chief complaint: Fever, abdominal wound - History of present illness History of present illness: 39-year-old female with a history of asthma and recent cosmetic surgery on March 08, 2020 in the [place]. The patient had a [place] butt lift, fat transfer, tummy tuck, breast augmentation with implants and liposuction. The patient had a dehiscence of her lower abdominal wound and is being followed at wound care center in [place]. She was started on antibiotics per the provider at the wound care center. Patient continuing to complain of purulent discharge from the lower abdominal wound. She also admits to fevers and abdominal pain. The patient presented to the emergency room for evaluation. Surgery consulted for wound evaluation. Pt c/o abdominal bloating and gas pain along with itching. Past History Past Medical History: GERD, other (Asthma- in childhood) Past Surgical History: (x4), Other (Abdominal cosmetic surgery, [place] butt lift, breast augmentation,Gastric sleeve, liposuction, foot surgery in 2000) Social history: no significant social history Medications and Allergies Allergies Allergy/AdvReac Type Severity Reaction Status Date / Time No Known Allergies Allergy Verified 04/22/20 23:09 Home Medications Medication Instructions Recorded Confirmed Last Taken Type methOCARBAMOL [Robaxin TAB] 500 mg PO Q6H PRN #20 tablet 06/29/19 07/04/19 Unknown Rx Promethazine [Phenergan] 25 mg PO Q6HR PRN #20 tab 07/07/19 Unknown Rx Meclizine [Antivert] 12.5 mg PO BID PRN #20 tablet 09/29/19 Unknown Rx Albuterol Mdi (or & Nicu Only) 2 puff IH QID PRN #8.5 gram 03/27/20 Unknown Rx [ProAir HFA Inhaler] Clindamycin [Clindamycin CAP] 300 mg PO Q8H #21 cap 03/27/20 Unknown Rx Promethazine [Phenergan] 25 mg PO Q6HR PRN #25 tab 03/27/20 Unknown Rx Simethicone [Gas Relief] 80 mg PO DAILY #30 tab.chew 04/23/20 Unknown Rx cephALEXin [Keflex] 500 mg PO Q12HR #8 cap 04/23/20 Unknown Rx oxyCODONE /ACETAMINOPHEN [Percocet 1 tab PO Q6H PRN #14 tablet 04/23/20 Unknown Rx 5/325 mg] Active Meds: Active Medications Acetaminophen (Tylenol) 650 mg PO Q4H PRN PRN Reason: Pain MILD(1-3)/Fever >100.5/NATARAJAN Diphenhydramine HCl (Benadryl) 25 mg IV Q6H PRN PRN Reason: Itching Last Admin: 04/23/20 04:05 Dose: 25 mg Documented by: Hydromorphone HCl (Dilaudid) 1 mg IV Q4H PRN PRN Reason: Pain , Severe (7-10) Last Admin: 04/23/20 08:46 Dose: 1 mg Documented by: Sodium Chloride (Nacl 0.9% 1000 Ml) 1,000 mls @ 75 mls/hr IV DIRECT MARQUITA Last Admin: 04/23/20 06:49 Dose: 75 mls/hr Documented by: Cefepime HCl (Cefepime/Ns 2 Gm/100 Ml) 2 gm in 100 mls @ 200 mls/hr IV Q8HR [facility]; Protocol Last Admin: 04/23/20 05:57 Dose: 200 mls/hr Documented by: Vancomycin HCl (Vancomycin/Ns 1 Gm/250 Ml) 1 gm in 250 mls @ 166.667 mls/hr IV Q12H [facility] Magnesium Hydroxide (Milk Of Magnesia) 30 ml PO Q4H PRN PRN Reason: Constipation Morphine Sulfate (Morphine) 2 mg IV Q4H PRN PRN Reason: Pain, Moderate (4-6) Last Admin: 04/23/20 01:36 Dose: 2 mg Documented by: Ondansetron HCl (Zofran) 4 mg IV Q8H PRN PRN Reason: Nausea And Vomiting Last Admin: 04/23/20 01:36 Dose: 4 mg Documented by: Oxycodone HCl (Roxicodone) 5 mg PO Q8H PRN PRN Reason: Pain, Moderate (4-6) Simethicone (Mylicon) 80 mg PO Q6H PRN PRN Reason: Gas pain Sodium Chloride (Sodium Chloride Flush Syringe 10 Ml) 10 ml IV BID MARQUITA Last Admin: 04/23/20 09:46 Dose: 10 ml Documented by: Sodium Chloride (Sodium Chloride Flush Syringe 10 Ml) 10 ml IV PRN PRN PRN Reason: LINE FLUSH Review of Systems All systems: negative (10 point ROS performed and negative except for that listed in HPI) Exam Vital Signs Temp Pulse Resp BP Pulse Ox 100.1 F H 147 H 18 141/81 96 04/22/20 19:43 04/22/20 19:43 04/22/20 19:43 04/22/20 19:43 04/22/20 19:43 Narrative exam: Gen.: Awake, alert, oriented 3. No apparent distress ENT: Trachea midline. No lymphadenopathy. No scleral icterus or conjunctival pallor CV: S1, S2 present Respiratory: No audible wheezes Abdomen: Soft, nondistended, nontender. Abdominal dressing clean, dry, intact no rebound, rigidity, guarding. broadcast chief engineer photos reviewed Extremities: No clubbing, cyanosis, edema Results - Labs 04/23/20 09:13 04/23/20 09:06 Abnormal lab results 04/22/20 04/22/20 04/22/20 Range/Units 19:51 19:51 Unknown RBC (3.65-5.03) M/mm3 MCHC 35 H (30-34) % Lymph % (Auto) 11.8 L (13.4-35.0) % Wood % (Auto) (0.0-7.3) % Eos % (Auto) (0.0-4.3) % Lymph # 0.9 L (1.2-5.4) K/mm3 Eos # (0.0-0.4) K/mm3 Seg Neutrophils % 80.2 H (40.0-70.0) % Sodium 135 L (137-145) mmol/L Potassium (3.6-5.0) mmol/L Carbon Dioxide (22-30) mmol/L Calcium (8.4-10.2) mg/dL Urine WBC (Auto) > 182.0 H (0.0-6.0) /HPF 04/23/20 04/23/20 Range/Units 09:06 09:13 RBC 3.52 L (3.65-5.03) M/mm3 MCHC (30-34) % Lymph % (Auto) (13.4-35.0) % Wood % (Auto) 7.6 H (0.0-7.3) % Eos % (Auto) 7.5 H (0.0-4.3) % Lymph # (1.2-5.4) K/mm3 Eos # 0.5 H (0.0-0.4) K/mm3 Seg Neutrophils % (40.0-70.0) % Sodium (137-145) mmol/L Potassium 3.5 L (3.6-5.0) mmol/L Carbon Dioxide 21 L (22-30) mmol/L Calcium 7.9 L (8.4-10.2) mg/dL Urine WBC (Auto) (0.0-6.0) /HPF Diabetes panel 04/22/20 04/23/20 Range/Units 19:51 09:06 Sodium 135 L 140 (137-145) mmol/L Potassium 3.7 3.5 L (3.6-5.0) mmol/L Chloride 98.7 105.6 (98-107) mmol/L Carbon Dioxide 23 21 L (22-30) mmol/L BUN 16 9 (7-17) mg/dL Creatinine 0.8 0.6 (0.6-1.2) mg/dL Glucose 93 96 (65-100) mg/dL Calcium 9.2 7.9 L (8.4-10.2) mg/dL AST 20 (5-40) units/L ALT 9 (7-56) units/L Alkaline Phosphatase 81 (35-129) units/L Total Protein 7.4 (6.3-8.2) g/dL Albumin 4.0 (3.9-5) g/dL Calcium panel 04/22/20 04/23/20 Range/Units 19:51 09:06 Calcium 9.2 7.9 L (8.4-10.2) mg/dL Albumin 4.0 (3.9-5) g/dL Pituitary panel 04/22/20 04/23/20 Range/Units 19:51 09:06 Sodium 135 L 140 (137-145) mmol/L Potassium 3.7 3.5 L (3.6-5.0) mmol/L Chloride 98.7 105.6 (98-107) mmol/L Carbon Dioxide 23 21 L (22-30) mmol/L BUN 16 9 (7-17) mg/dL Creatinine 0.8 0.6 (0.6-1.2) mg/dL Glucose 93 96 (65-100) mg/dL Calcium 9.2 7.9 L (8.4-10.2) mg/dL Adrenal panel 04/22/20 04/23/20 Range/Units 19:51 09:06 Sodium 135 L 140 (137-145) mmol/L Potassium 3.7 3.5 L (3.6-5.0) mmol/L Chloride 98.7 105.6 (98-107) mmol/L Carbon Dioxide 23 21 L (22-30) mmol/L BUN 16 9 (7-17) mg/dL Creatinine 0.8 0.6 (0.6-1.2) mg/dL Glucose 93 96 (65-100) mg/dL Calcium 9.2 7.9 L (8.4-10.2) mg/dL Total Bilirubin 0.30 (0.1-1.2) mg/dL AST 20 (5-40) units/L ALT 9 (7-56) units/L Alkaline Phosphatase 81 (35-129) units/L Total Protein 7.4 (6.3-8.2) g/dL Albumin 4.0 (3.9-5) g/dL - Imaging CT scan - abdomen: report reviewed, image reviewed CT scan - pelvis: report reviewed, image reviewed Assessment and Plan 39-year-old female with abdominal surgical wound dehiscence status post cosmetic surgery at outside facility Plan: 1. continue wound care as per green building energy engineer 2. continue PO abx upon dc 3. follow up in wound care clinic for continued aggressive wound care 4. ok to DC from surgery standpoint. Pt given supplies to care for wound until follow up in wound care clinic. Appointment has been set up. Thank you for this consultation. Please call with any questions or concerns. Evaluation and treatment of this patient was during the time of the national and state emergency arising from COVID19 coronavirus pandemic. Treatment and procedures performed meet the current and available best practice and guidelines for patient during the COVID pandemic.
[2020-04-23] MEDS ORDERED: VANCOMYCIN/NS 1 GM/250 ML 1 GM/250 ML BAG IV SCH (12:00)
[2020-04-23] MEDS ORDERED: VANCOMYCIN 1,250 MG in SODIUM CHLORIDE 0.9% 250ML 250 ML IV SCH (14:00)
== END 2020-04-23 14:00 | disposition home or self-care (01) ==
LOC: ED 19:14 → 3A 23:50
PROVIDERS: ADMIT Internal Medicine Geriatric Medicine; ATTEND Internal Medicine
DX: T81.31XA Disruption of external operation (surgical) wound, not elsewhere classified, initial encounter (principal); R11.2 Nausea with vomiting, unspecified; N30.01 Acute cystitis with hematuria; R42 Dizziness and giddiness; K21.9 Gastro-esophageal reflux disease without esophagitis; E66.9 Obesity, unspecified; R65.10 Systemic inflammatory response syndrome (SIRS) of non-infectious origin without acute organ dysfunction; Z87.09 Personal history of other diseases of the respiratory system; Z79.899 Other long term (current) drug therapy; X58.XXXA Exposure to other specified factors, initial encounter; Y93.89 Activity, other specified; Y92.89 Other specified places as the place of occurrence of the external cause; Z68.32 Body mass index [BMI] 32.0-32.9, adult
CPT/HCPCS: 36415; 74177; 80048; 80053; 81001; 82140; 84703; 85025; 85610; 87040; 87086; 96361; 96365; 96366; 96367; 96375; 96376; 99291; G0378; J0692; J1170; J1200; J2270; J2405; J2765; J3370; J7030; Q9967

== ENCOUNTER 2022-02-15 20:10 | Emergency (ER) | payer MEDICAID ==
[2022-02-15 20:36] VITALS: BP 115/68
[2022-02-15 21:36] LABS: Alanine Aminotransferase 11 units/L (7-56); Albumin 3.5 g/dL (3.9-5); BUN/Creatinine Ratio 13; Blood Urea Nitrogen 13 mg/dL (7-17); Calcium 8.9 mg/dL (8.4-10.2); Hemolysis Index 3
[2022-02-15 21:43] LABS: Hematocrit 28.2 % (30.3-42.9); Mean Corpuscular Volume 66 fl (79-97); Red Blood Count 4.28 M/mm3 (3.65-5.03)
[2022-02-15 21:44] LABS: Mean Corpuscular HGB Conc 28 % (30-34); Platelet Count 229 K/mm3 (140-440); Red Cell Distribution Width 21.4 % (13.2-15.2)
[2022-02-15 21:55] LABS: Bilirubin,Urine NEG (Negative); Blood,Urine SM (Negative); Color,Urine Yellow (Yellow)
[2022-02-15 22:04] LABS: Bacteria,Urine 3+ /HPF (Negative); Mucus,Urine 1+ /HPF
[2022-02-15 22:07] LABS: Protein,Urine >500 mg/dL (Negative); WBC,Urine > 182.0 /HPF (0.0-6.0)
[2022-02-15 22:40] LABS: Eosinophils % (Manual) 0 % (0.0-4.3); Total Cells Counted 100
[2022-02-15 22:41] LABS: Anisocytosis 2+; Hypochromasia 2+; Toxic Granulation Few
[2022-02-15 22:42] LABS: Platelet Estimate Consistent w Auto
== END 2022-02-16 05:08 | disposition left against medical advice (07) ==
LOC: ED 20:10
DX: R50.9 Fever, unspecified (principal); Z53.21 Procedure and treatment not carried out due to patient leaving prior to being seen by health care provider
CPT/HCPCS: 36415; 80053; 81001; 83690; 84703; 85007; 85025